=== PATIENT | male | born 1975 | race Caucasian/White ===

== ENCOUNTER → 2021-10-08 14:09 | Outpatient (BNVA) | payer OTHER, SELFPAY | PROVIDERS: PCP Internal Medicine; Visit Provider Surgery Vascular Surgery ==

== ENCOUNTER 2021-10-24 12:51 | Outpatient (REF) | payer OTHER, SELFPAY ==
--- NOTE | ~2021-10-24 | US_ITS ---
EXAMINATION: BILATERAL LOWER EXTREMITY VENOUS ULTRASOUND (Reflux Exam) CLINICAL INDICATION: Lower extremity varicose veins. COMPARISON: None. TECHNIQUE: Color flow triplex imaging and compression Doppler was performed to evaluate both the deep and the superficial systems bilaterally. To evaluate the superficial system, the examination was performed in the upright position. Color-flow Doppler ultrasound and compression ultrasound were utilized. In addition, maneuvers were utilized to demonstrate reflux. FINDINGS: SUPERFICIAL ULTRASOUND WITH DOPPLER OF RIGHT LOWER EXTREMITY GREAT SAPHENOUS VEIN: Saphenofemoral junction: 0.7 cm Max diameter: 0.7 cm Min diameter: 0.3cm Reflux: No evidence of reflux. DUPLICATED MEDIAL GREAT SAPHENOUS VEIN: Max Diameter: None Imaged Reflux: NA DUPLICATED LATERAL GREAT SAPHENOUS VEIN: Diameter: 0.3 cm at the junction Reflux: None SMALL SAPHENOUS VEIN: Proximal Calf: 0.2 cm Distal Calf: 0.2 cm Reflux: No evidence of reflux VEIN OF GIACOMINI: None Imaged PERFORATORS: Location: [place], 0.2 cm Reflux: None VARICOSITIES: Location: Proximal thigh, distal thigh and distal calf measuring between 3 and 4 mm Reflux: There is up to 1.1 seconds of reflux within the distal calf varicosity DEEP VENOUS ULTRASOUND OF THE RIGHT LOWER EXTREMITY: Common Femoral Vein: Compressible, normal respiratory variation and augmented flow. Femoral vein: Compressible, normal color flow and augmentation. Popliteal Vein: Compressible, normal augmentation. Deep Reflux: There is no evidence of reflux in the deep system in either the common femoral vein or the popliteal vein. Andrade's Cyst: There is no evidence of a Andrade's cyst. SUPERFICIAL ULTRASOUND WITH DOPPLER OF LEFT LOWER EXTREMITY GREAT SAPHENOUS VEIN: Saphenofemoral junction: 1.2 cm Max diameter: 1.2 cm Min diameter: 0.2 cm Reflux: There is greater than 0.9 seconds of reflux at the saphenofemoral junction DUPLICATED MEDIAL GREAT SAPHENOUS VEIN: Max Diameter: None Imaged Reflux: NA DUPLICATED LATERAL GREAT SAPHENOUS VEIN: Diameter: 0.3 cm at the junction Reflux: NA SMALL SAPHENOUS VEIN: Proximal Calf: 0.2 cm Distal Calf: 2 cm Reflux: No evidence of reflux. VEIN OF GIACOMINI: None Imaged. PERFORATORS: Location: Proximal calf and distal calf measuring 2 and 3 mm respectively Reflux: None VARICOSITIES: Location: Maximal thigh measuring 4 mm Reflux: None DEEP VENOUS ULTRASOUND OF THE LEFT LOWER EXTREMITY: Common Femoral Vein: Compressible, normal respiratory variation and augmented flow. Femoral vein: Compressible, normal color flow and augmentation. Popliteal Vein: Compressible, normal augmentation. Deep Reflux: There is no evidence of reflux in the deep system in either the common femoral vein or the popliteal vein. Andrade's Cyst: There is no evidence of a Andrade's cyst. US/US venous duplex LE BI IMPRESSION: 1. Left great saphenous venous insufficiency beginning at the saphenofemoral junction. 2. No evidence of right great saphenous venous insufficiency. 3. No evidence of small saphenous venous insufficiency involving either leg. 4. Bilateral lower extremity varicosities. 5. No evidence of deep venous insufficiency or DVT.
== END 2021-10-24 12:52 | disposition home or self-care (01) ==
LOC: HO.US 12:51
PROVIDERS: Visit Provider Surgery Vascular Surgery
DX: I83.11 Varicose veins of right lower extremity with inflammation (principal)
CPT/HCPCS: 93970

== ENCOUNTER → 2021-10-31 15:08 | Outpatient (BNVA) | payer OTHER, SELFPAY | PROVIDERS: Visit Provider Surgery Vascular Surgery ==

== ENCOUNTER 2023-01-14 08:46 | Emergency (ER) | payer OTHER, SELFPAY ==
--- NOTE | ~2023-01-14 | XR_ITS ---
EXAMINATION: XR ANKLE, LEFT CLINICAL INFORMATION: Pain and swelling left ankle COMPARISON: None available. TECHNIQUE: AP, lateral, and mortise views of the left ankle. FINDINGS: There is no evidence of acute fracture or dislocation of the left ankle. Left ankle mortise appears intact. There is some spurring about the dorsum of the talus related to old injuries. There is some edema seen involving the lower leg and ankle. There is a small well-circumscribed calcific density about the distal tip of the medial malleolus which may represent secondary ossification center or sequela of previous injury. No destructive bony lesions identified. There are calcaneal spurs at sites of insertion of the Achilles and plantar tendons. XR/XR ankle LT min 3V IMPRESSION: No significant acute bony abnormality of the left ankle.
[2023-01-14 09:44] VITALS: BP 164/83; PULSE 90; RESP 18; TEMP 36.8; O2SAT 96; BMI 40.6
--- NOTE | 2023-01-14 11:30 | ED.GENADULT ---
HPI - General Adult General Chief complaint: Extremity Problem Stated complaint: L leg pain Time Seen by Provider: 01/14/23 11:30 Source: patient Mode of arrival: ambulatory Limitations: no limitations History of Present Illness HPI narrative: Patient is a 47 year old assigned male at with no reported medical history presenting to the emergency department today with left ankle pain. Patient states that he has been having intermittent pain of the left ankle for the last week. Patient states he believes it's because he is on his feet all day at work. Patient denies any dizziness, lightheadedness, abdominal pain, nausea, vomiting, fever, chills, blurry vision, double vision, loss of vision, chest pain, difficulty breathing, shortness of breath, back pain, night sweats, pain with urination, increased urinary frequency, increased urinary urgency, blood in his urine or stool, syncope or a near syncopal episode, recent trauma or falls, bowel incontinence, bladder incontinence, bowel retention, bladder retention, or any other complaints at this time. Onset (ago): week(s) (1) Location: left and lower extremity Radiation: non-radiation Severity: mild Severity scale (1-10): 3 Quality: aching and dull Pain Consistency: constant Relieving factors: none Exacerbating factors: none Associated symptoms: denies other symptoms Treatments prior to arrival: none Related Data Home Medications Medication Instructions Recorded Confirmed lisinopril 10 mg tablet 10 mg PO DAILY 10/08/21 Allergies Allergy/AdvReac Type Severity Reaction Status Date / Time No Known Allergies Allergy Verified 10/31/21 15:12 Review of Systems Constitutional: Constitutional: Reports no additional constitutional complaints, Denies chills, Denies fever(s) and Denies night sweats Eyes: Eyes: Reports no additional eye complaints, Denies blurry vision, Denies change in vision, Denies diplopia, Denies eye discharge, Denies loss of vision and Denies eye pain ENT: Denies dizziness Cardiovascular: Cardiovascular: Reports no additional cardiovascular complaints, Denies chest pain, Denies lightheadedness, Denies Loss of Consciousness and Denies dyspnea Respiratory: Respiratory: Reports no additional respiratory complaints and Denies dyspnea Gastrointestinal: Gastrointestinal: Reports no additional gastrointestinal complaints, Denies abdominal pain, Denies melena, Denies hematochezia, Denies change in bowel habits and Denies change in stool character Genitourinary: Genitourinary: Reports no additional male genitourinary complaints, Denies hematuria, Denies oliguria, Denies difficulty urinating, Denies dysuria, Denies urinary frequency, Denies urinary hesitancy, Denies urinary incontinence and Denies urinary urgency Musculoskeletal: Musculoskeletal: Reports no additional musculoskeletal complaints, Denies numbness and Denies tingling Comments: left ankle pain Neurologic: Denies dizziness, Denies loss of vision, Denies numbness and Denies tingling Psychiatric: Psychiatric: Reports no additional psychiatric complaints Endocrine: Endocrine: Reports no additional endocrine complaints Hematologic/Lymphatic: Hematologic/Lymphatic: Reports no additional hematologic/lymphatic complaints Allergic/Immunologic: Allergic/Immunologic: Reports no additional allergic/immunologic complaints [facility] Past Medical History Attestation statement: The following information was validated with the patient. Source: old records reviewed and nursing notes reviewed Social History Social History Advance Directives: No Advance Directives Information Provided: Yes Physical Exam ED Vital Signs: Vital Signs - 24 hr 01/14/23 09:44 Temperature 98.2 F Pulse Rate 90 Respiratory Rate 18 Blood Pressure 164/83 H Pulse Oximetry 96 Oxygen Delivery Method Room Air BMI result Body Mass Index 40.6 Const General: cooperative, no acute distress, alert and awake Nutritional Appearance: well nourished Orientation/consciousness: patient oriented x3 Limitations: no limitations HENMT Head: Yes normal to inspection and Yes atraumatic Ears: hearing grossly normal bilaterally and external ears normal General nose exam: Normal external nose present, no nasal discharge noted and no epistaxis Face and sinus: Yes normal facial exam, No abrasion and No laceration Mouth: Normal oral and palatal mucosa present, no drooling and no muffled voice Eyes General: appearance normal, both eyes and all related structures Periorbital: periorbital findings normal Eyelids: Yes eyelids normal Conjunctivae: conjunctivae normal Pupils: Equal, round and reactive pupils present EOM: EOMs intact bilaterally Neck Neck: Yes normal visual inspection, Yes full ROM and Yes no lymphadenopathy Chest Chest palpation & inspection: normal inspection of the chest Resp Effort & Inspection: normal respiratory effort and able to speak in complete sentences Auscultation: clear to auscultation bilaterally Cardio Rate: regular rate Rhythm: regular rhythm GI Inspection: Yes normal to inspection Palpation (GI): Soft to palpation, not firm, nontender, no guarding and not rigid Neuro General: patient oriented x3 and moves all extremities Cranial nerves: Yes Equal, round and reactive pupils present Cognition (Neuro): normal cognition Motor exam (neuro): 5/5 motor strength present throughout Sensory Exam: Normal double simultaneous stimulation for sensation Coordination: [id number] test normal Extrem General: Yes normal to inspection, Yes full ROM and Yes capillary refill normal Psych Appearance: grossly normal Mental Status: mental status grossly normal Affect: normal affect Attitude: cooperative Thought process: Normal thought process present Thought content: Normal thought content present Insight: Good insight present (Psych) Medications Administered Discontinued Medications Generic Name Dose Route Start Last Admin Trade Name Freq PRN Reason Stop Dose Admin Ketorolac Tromethamine 15 mg 01/14/23 11:32 01/14/23 11:43 Ketorolac Tromethamine 15 Mg/Ml Vial IM 01/14/23 11:33 15 mg ONCE ONE Administration Procedures Orthopedic Splinting/Casting Injury #1: Side: left Lower Extremity Injury Location: ankle Lower Extremity Immobilizer: Saad wrap Other Orthopedic Equipment: crutches Medical Decision Making Medical Decision Making MDM Narrative: Patient is a 47 year old assigned male at with no reported medical history presenting to the emergency department today with left ankle pain. Patient's physical exam was unremarkable. Patient's left ankle x-ray showed no acute process. I explained my physical exam findings as well as all test results to the patient. I answered all questions asked by the patient. Patient's left ankle was wrapped in an saad wrap and the patient was given crutches and crutch instructions. I stressed the importance of the patient taking his medication as prescribed. I stressed the importance of the patient following up with his primary care provider and if pain persists, an orthopedic provider. I stressed the importance of the patient returning to the emergency department immediately if his symptoms were to worsen or if he were to develop any dizziness, shortness of breath, difficulty breathing, chest pain, blurry vision, loss of vision, nausea, vomiting, abdominal pain, fever, chills, back pain, or any other complaints. Patient verbalized agreement and understanding with this treatment plan and discharge. Differential Diagnosis Differential Diagnoses: The differential diagnosis associated with the presentation includes left ankle pain, left ankle sprain Independent Interpretation I performed an independent interpretation of an: Plain X-Ray Interpretation: My interpretation is in agreement with the radiologist's impression of this imaging study. EXAMINATION: XR ANKLE, LEFT CLINICAL INFORMATION: Pain and swelling left ankle? COMPARISON: None available.? TECHNIQUE: AP, lateral, and mortise views of the left ankle. FINDINGS: There is no evidence of acute fracture or dislocation of the left ankle. Left ankle mortise appears intact. There is some spurring about the dorsum of the talus related to old injuries. There is some edema seen involving the lower leg and ankle. There is a small well-circumscribed calcific density about the distal tip of the medial malleolus which may represent secondary ossification center or sequela of previous injury. No destructive bony lesions identified. There are calcaneal spurs at sites of insertion of the Achilles and plantar tendons. XR/XR ankle LT min 3V IMPRESSION: No significant acute bony abnormality of the left ankle. Dictated By: Jude Huff MD Signed By: Electronically signed by Jude Huff MD 01/14/23 5841 Discharge Plan Discharge Clinical Impression: Arthritis, Left ankle sprain Patient Disposition: Home, Self-Care Instructions: Crutch Instructions (ED), How to Use an Elastic Bandage (ED) Additional Instructions: Follow up with your primary care provider and if pain persits >2 weeks, an orthopedic provider. Return to the emergency department immediately if your symptoms worsen or if you develop any dizziness, shortness of breath, difficulty breathing, chest pain, blurry vision, loss of vision, nausea, vomiting, abdominal pain, fever, chills, back pain, or any other complaints. Prescriptions: No Action lisinopril 10 mg tablet 10 mg PO DAILY Referrals: [facility] Family Medicine [Provider Group] (Call to establish and follow up with a primary care provider. If you already have a primary care provider, please follow up with them.) [facility] Primary Care, Abbie [Provider Group] (Call to establish and follow up with a primary care provider. If you already have a primary care provider, please follow up with them.) [facility] Primary Care,Rachel [Provider Group] (Call to establish and follow up with a primary care provider. If you already have a primary care provider, please follow up with them.) [facility] [Provider Group] (Call to establish and follow up with an orthopedic provider if your pain persists >2 weeks. ) Stand Alone Forms: Work/School Release Interventions: ED Discharge Assessment Last Done: 01/14/23 11:48 Discharge Date/Time: 01/14/23 11:55 Print Language: Belarusian
[2023-01-14] MEDS: Ketorolac Tromethamine 15 MG/ML VIAL IM (11:43)
== END 2023-01-14 11:55 | disposition home or self-care (01) ==
PROVIDERS: Emergency Provider Emergency Medicine
DX: M19.072 Primary osteoarthritis, left ankle and foot (principal); S93.402A Sprain of unspecified ligament of left ankle, initial encounter; X50.9XXA Other and unspecified overexertion or strenuous movements or postures, initial encounter; Y93.89 Activity, other specified; Y92.9 Unspecified place or not applicable; Y99.9 Unspecified external cause status
CPT/HCPCS: 73610; 96372; 99283; 99284; J1885

== ENCOUNTER 2023-09-22 18:31 | Emergency (ER) | payer OTHER, SELFPAY ==
--- NOTE | ~2023-09-22 | XR_ITS ---
EXAMINATION: CERVICAL SPINE 3 VIEWS CLINICAL INFORMATION: Neck pain. COMPARISON: None. TECHNIQUE: Frontal, lateral and odontoid views are obtained. FINDINGS: Vertebral body heights and alignment are normal. At C3-C4 and C5-C6, there is mild disc space narrowing. The remaining disc spaces are relatively well-maintained. No acute fracture or spondylolisthesis is seen. There is multi-level cervical spondylosis. The posterior elements are intact. The dens is intact. The C7-T1 interface is well-maintained. There is no prevertebral soft tissue swelling. XR/XR cervical spine 3V IMPRESSION: 1. There is mild degenerative disease at C3-C4 and C5-C6. 2. There is multi-level spondylosis and facet arthropathy.
[2023-09-22 19:18] VITALS: BP 177/98; PULSE 91; RESP 18; TEMP 36.9; O2SAT 96; BMI 40.5
--- NOTE | 2023-09-22 19:19 | ECG_ITS ---
Test Reason : NUMB/PAIN BILAT ARMS Blood Pressure : / mmHG Vent. Rate : 092 BPM Atrial Rate : 092 BPM P-R Int : 172 ms QRS Dur : 082 ms QT Int : 356 ms P-R-T Axes : 019 062 -01 degrees QTc Int : 440 ms Normal sinus rhythm Nonspecific T wave abnormality Inferior leads Abnormal QRS-T angle, consider primary T wave abnormality Abnormal ECG No previous ECGs available Referred By: Irasema Donald Electronically Signed By:DENISE OSBORNE MD
--- NOTE | 2023-09-22 19:19 | ED.GENADULT ---
HPI - General Adult General Chief complaint: Neck Pain/Injury Stated complaint: pain in back of head Time Seen by Provider: 09/22/23 19:18 Related Data Home Medications Medication Instructions Recorded Confirmed lisinopril 10 mg tablet 10 mg PO DAILY 10/08/21 Previous Rx's Medication Instructions Recorded cyclobenzaprine 10 mg tablet 10 mg PO BEDTIME PRN muscle spasm 09/23/23 #7 tabs ketorolac 10 mg tablet 10 mg PO .b.i.d. PRN pain 5 days 09/23/23 #10 tabs Allergies Allergy/AdvReac Type Severity Reaction Status Date / Time No Known Allergies Allergy Verified 09/22/23 19:23 [facility] Social History Social History Advance Directives: No Advance Directives Information Provided: No Physical Exam ED Vital Signs: Vital Signs - 24 hr 09/22/23 19:18 09/23/23 00:47 Temperature 98.4 F 99.0 F Pulse Rate 91 82 Respiratory Rate 18 20 Blood Pressure 177/98 H 133/86 Pulse Oximetry 96 96 Oxygen Delivery Method Room Air Room Air BMI result Body Mass Index 40.5 Course Course Course Narrative: This is an RME: Additional HPI, ROS, PE not included below will be deferred to primary provider. 48-year-old male presents with neck pain that radiates to bilateral upper extremities, going on for about a month. Denies injuries. Does not have a primary care denies upper extremity clumsiness. Plan at this x-ray of cervical spine Medications Administered Discontinued Medications Generic Name Dose Route Start Last Admin Trade Name Freq PRN Reason Stop Dose Admin Ketorolac Tromethamine 60 mg 09/23/23 01:28 09/23/23 01:44 Ketorolac Tromethamine 60 Mg/2 Ml Vial IM 09/23/23 01:29 60 mg ONCE ONE Administration Medical Decision Making Medical Decision Making [facility] Narrative: - my interpretation of x-ray of the neck: No obvious fracture or dislocation/misalignment Radiology Impression Discussion of test interpretation with radiology: I have reviewed the radiologist's reading. Radiologist Impression: Vertebral body heights and alignment are normal. At C3-C4 and C5-C6, there is mild disc space narrowing. The remaining disc spaces are relatively well-maintained. No acute fracture or spondylolisthesis is seen. There is multi-level cervical spondylosis. The posterior elements are intact. The dens is intact. The C7-T1 interface is well-maintained. There is no prevertebral soft tissue swelling. XR/XR cervical spine 3V IMPRESSION: 1. There is mild degenerative disease at C3-C4 and C5-C6. 2. There is multi-level spondylosis and facet arthropathy. Discharge Plan Discharge Clinical Impression: Cervical radiculopathy Patient Disposition: Home, Self-Care Instructions: Cervical Radiculopathy (ED) Additional Instructions: Please follow-up with your primary care physician tomorrow. If you have any worsening or new symptoms, please return to the emergency room or call 911 Prescriptions: New ketorolac 10 mg tablet 10 mg PO .b.i.d. PRN (Reason: pain) 5 Days Qty: 10 0RF cyclobenzaprine 10 mg tablet 10 mg PO BEDTIME PRN (Reason: muscle spasm) Qty: 7 0RF No Action lisinopril 10 mg tablet 10 mg PO DAILY Stand Alone Forms: Work/School Release
[2023-09-23 00:47] VITALS: BP 133/86; PULSE 82; RESP 20; TEMP 37.2; O2SAT 96
--- NOTE | 2023-09-23 01:28 | ED.GENADULT ---
HPI - General Adult General Chief complaint: Neck Pain/Injury Stated complaint: pain in back of head Time Seen by Provider: 09/22/23 19:18 Source: patient Mode of arrival: ambulatory Limitations: no limitations History of Present Illness HPI narrative: patient comes to the emergency room complaining of upper neck pain radiating towards the shoulders and upper back and occasional numbness and tingling of the fingertips of the fingers. Patient states that his symptoms started approximately 3 weeks ago. Patient denies any heavy lifting or any injury. Related Data Home Medications Medication Instructions Recorded Confirmed lisinopril 10 mg tablet 10 mg PO DAILY 10/08/21 Previous Rx's Medication Instructions Recorded cyclobenzaprine 10 mg tablet 10 mg PO BEDTIME PRN muscle spasm 09/23/23 #7 tabs ketorolac 10 mg tablet 10 mg PO .b.i.d. PRN pain 5 days 09/23/23 #10 tabs Allergies Allergy/AdvReac Type Severity Reaction Status Date / Time No Known Allergies Allergy Verified 09/22/23 19:23 Review of Systems Review of Systems: Constitutional : No Weight loss, No Fever, No Chills, No Night Sweats, No Fatigue, No Malaise ENT/Mouth : No Hearing loss, No Ear Pain, No Nasal Congestion, No Sinus Pain, No Hoarseness, No sore throat, No Rhinorrhea, No Swallowing Difficulty Eyes: No Eye Pain, No Swelling, No Redness, No Foreign Body, No Discharge, No Vision Changes Cardiovascular : No Chest Pain, No SOB, No Dyspnea on Exertion, No Orthopnea, No Edema, No Palpitations Respiratory : No Cough, No Sputum, No Wheezing, No Smoke Exposure, No Dyspnea Gastrointestinal : No Nausea, No Vomiting, No Diarrhea, No Constipation, No abdominal Pain, No Hematochezia, No Melena Genitourinary : no irregular bleeding, No Dysuria, No Urinary Frequency, No Hematuria, No Urinary Incontinence, No Urgency, No Flank Pain, No Urinary Flow Changes, No Hesitancy Musculoskeletal : Complaining of bilateral neck pain radiating towards the upper back bilaterally, intermittent tingling of the fingertips of both hands. No joint pain, No Myalgias, No Joint Swelling Skin : No Skin Lesions, No rash Neuro : No Weakness, No Numbness, No Paresthesias, No Loss of Consciousness, No Dizziness, No Headache Psych : No Anxiety/Panic, No Depression, No SI/HI/AH/VH, No Social Issues, Heme/Lymph: No Bruising, No Bleeding,No Lymphadenopathy Endocrine : No Polyuria, No Polydipsia, No Temperature Intolerance [facility] Social History Social History Advance Directives: No Advance Directives Information Provided: No Physical Exam ED Vital Signs: Vital Signs - 24 hr 09/22/23 19:18 09/23/23 00:47 Temperature 98.4 F 99.0 F Pulse Rate 91 82 Respiratory Rate 18 20 Blood Pressure 177/98 H 133/86 Pulse Oximetry 96 96 Oxygen Delivery Method Room Air Room Air BMI result Body Mass Index 40.5 Const Other: Appearance: Alert. Oriented X3. No acute distress. Eyes: Pupils equal, round and reactive to light. ENT: Pharynx normal. Neck: Normal inspection. Neck supple. No cervical spine tenderness, no palpable step-off, pain with head rotation especially to the left. Pain to palpation over the right side of the neck and supraclavicular muscles bilaterally CVS: Normal heart rate and rhythm. Pulses normal. Normal S1 and S2 Respiratory: No respiratory distress. Breath sounds normal. No Wheezing. No rales Abdomen: Soft and nontender. No rigidity. No distention. Skin: Skin warm and dry. Normal skin color. Normal skin turgor. Extremities: No lower extremity edema. No Lacerations. No Rash Neuro: Oriented X 3. No motor deficit. No sensory deficit. Moving all extremities. No slurred speech. CN 2 through 12 grossly intact, strength 5/5 bilaterally in upper extremities Psych: calm, cooperative, normal affect Medical Decision Making Medical Decision Making MDM Narrative: - discussed with the patient that he likely has musculoskeletal muscle pain affecting the trapezoid muscles. Also, discussed with the patient that he may have cervical radiculopathy causing the numbness / tingling of the fingertips. Patient will follow-up his primary care physician, discussed that he may need physical therapy or even an MRI. At this time, patient was given an IM dose of ketorolac. Differential Diagnosis Differential Diagnoses: The differential diagnosis associated with the presentation includes ( As above) Discharge Plan Discharge Clinical Impression: Cervical radiculopathy Patient Disposition: Home, Self-Care Instructions: Cervical Radiculopathy (ED) Additional Instructions: Please follow-up with your primary care physician tomorrow. If you have any worsening or new symptoms, please return to the emergency room or call 911 Prescriptions: New ketorolac 10 mg tablet 10 mg PO .b.i.d. PRN (Reason: pain) 5 Days Qty: 10 0RF cyclobenzaprine 10 mg tablet 10 mg PO BEDTIME PRN (Reason: muscle spasm) Qty: 7 0RF No Action lisinopril 10 mg tablet 10 mg PO DAILY Stand Alone Forms: Work/School Release
[2023-09-23] MEDS: Ketorolac Tromethamine 60 MG/2 ML VIAL IM (01:44)
== END 2023-09-23 01:49 | disposition home or self-care (01) ==
PROVIDERS: Emergency Provider Emergency Medicine
DX: M54.12 Radiculopathy, cervical region (principal); M79.602 Pain in left arm; M79.601 Pain in right arm; R94.31 Abnormal electrocardiogram [ECG] [EKG]; R51.9 Headache, unspecified; M54.2 Cervicalgia
CPT/HCPCS: 72040; 93005; 96372; 99284; J1885

== ENCOUNTER 2025-05-03 08:00 | Outpatient (REF) | payer OTHER, SELFPAY ==
--- OUTSIDE RECORDS SUMMARY | 2025-05-03 08:02 | XMS_ITS | Clinical Summary ---
Author Organization [employer] Address [address] [facility] [address] [place] [address] Care Team Providers Care Maintenance Shop Technician Name Role Phone Deborah Bey MD Primary Care Pro vider Allergies No known active allergies Medications cyclobenzaprine (Flexeril) 10 MG tablet Take 5 mg by mouth at bedtime. Active aspirin 81 MG EC tablet Take 1 tablet (81 mg) by mouth Once per day. 90 tablet 03/16/2025 Active lisinopril 10 MG tablet Take 1 tablet (10 mg) by mouth Once per day. 90 tablet 03/16/2025 Active Active Problems Problem Noted Date Diagnosed Date Health care maintenance 03/09/2025 Morbid obesity 03/09/2025 Closed stable burst fracture of second lumbar vertebra with routine healing 03/09/2025 Liver lesion 03/09/2025 Closed fracture of coccyx, sequela 03/08/2025 Hypertensive disorder 07/04/2024 Encounters Date Type Department Care Team Description 03/24/2025 Telephone [facility] [address] [place] [phone] Deborah Bey MD Referral 03/16/2025 Orders Only [facility] [address] [place], [place] [phone] Deborah Bey MD 03/16/2025 Telephone [facility] [address] [place] [phone] Deborah Bey MD Med Refill 03/15/2025 Telephone [facility] [address] [place] [address] Deborah Bey MD Workers Comp (I received a call from Millie Shay, regarding a Patient Status Report from [employer], for a Workers Comp claim. I informed her that the form has not been completed, because the patient needs to sign a release of information. She stated that Workers Comp is HIPAA exempt, therefore, information could be sent without a release of information. After verifying with the HIPAA Advanced Practice Rn, the report was sent to the PCP for signature, and it will be faxed to the number that is listed.) 03/15/2025 Telephone [facility] [address] [place] [phone] Deborah Bey MD 03/14/[address] [phone] Deborah Bey MD Workers Comp (I called the patient regarding a Patient Status Report, from [employer] for a Workers Comp claim. He needs to sign a release of information, before the report is faxed back to [employer]. I reached a voicemail, and left a message asking him to return my call at ext [phone]./) 03/09/2025 Telephone [facility] [employer] [address] [place] [address] [phone] Devora Jiménez [place] Worker Comp Claim (I called the patient regarding a Patient Status Report, from [employer] for a Workers Comp claim. He needs to sign a release of information, before the report is faxed to [employer]. I reached a voicemail, and left a message asking him to return my call at ext [phone].) 03/08/2025 9:15 AM EDT Office Visit [address] [phone] Deborah Bey MD Closed fracture of coccyx, sequela (Primary Dx); Dietary counseling; Exercise counseling; Annual physical exam; Colon cancer screening; Hypertension, unspecified type; Morbid obesity (CMS/HCC); Loud snoring; Encounter for immunization; Health care maintenance; Closed stable burst fracture of second lumbar vertebra with routine healing; Liver lesion 03/08/2025 Travel 03/07/[address] [place] [phone] Deborah Bey MD CHART PREP 03/01/2025 Patient Outreach [facility] [address] [place] [address] Deborah Bey MD Pre-visit Planning (//(PVP screening completed, no concerns)) 02/27/2025 Telephone [facility] [address] [place] [address] Sherif Allen MD new pt from Last 3 Months Immunizations Immunization Administration Dates Next Due Influenza injectable quadrivalent preservative f ree 09/07/2020 Influenza, Unspecified 07/20/2013 SARS-CoV-2, Unspecified 03/09/2021,02/09/2021 Tdap 03/08/2025 Family History Medical History Relation Name Comments maternal cousin: unspecified cancer Other Relation Name Status Comments Other Social History Tobacco Use Types Packs/Day Years Used Date Smoking Tobacco: Former Cigarettes Passive Smoke Exposure: Never Smokeless Tobacco: Never Comments:Started 14 y of age until 34 y of age-smoked for 20 years -used to smoke 3-4 cig a day ,stopped 15 y ago ,PQT a year 3 -no need for lung ca screening Alcohol Use Standard Drinks/Week Comments Not Currently 0 (1 standard drink = 0.6 oz pur e alcohol) Depression Answer Date Recorded Patient Health Questionnaire-9 Score 0 03/08/2025 Patient Health Questionnaire-9 Score 0 03/08/2025 Last PHQ-9: Questionnaire Data Not on file 0 03/08/2025 Housing Stability Answer Date Recorded What is your housing situation today? I have jesus randall 03/01/[address] you li ve. Do you have problems with any of the following? None of the above 03/01/2025 Food Insecurity Answer Date Recorded Within the past 12 months, y ou worried that your food would run out before you got money to buy more: Never True 03/01/2025 Within the past 12 months,th e food you bought just didn't last and you didn't have enough money to get more: Never True 04/2025 Transportation Answer Date Recorded In the past 12 months, has l ack of transportation kept you from medical appts, meetings, work or from getting things needed for daily living? No 03/01/2025 Utilities Answer Date Recorded In the past 12 months, has t he electric, gas, oil or water company threatened to shut off services in your home? No 03/01/2025 Depression Answer Date Recorded Patient Health Questionnaire-2 Score 0 03/08/2025 Internet Access Answer Date Recorded Internet Access Q1 Yes 03/01/2025 Internet Access Q2 Not on file 03/01/2025 Sex and Gender Information Value Date Recorded Sex Assigned at Male 08/25/2022 10:35 AM EDT Legal Sex Male 10:35 AM EDT Gender Identity Male 08/25/2022 10:35 AM EDT Sexual Orientation Choose not to disclose 2021 10:35 AM EDT Last Filed Vital Signs Vital Sign Reading Time Taken Comments Blood Pressure 136/86 03/08/2025 9:20 AM EDT Pulse 93 03/08/2025 9:20 AM EDT Temperature 36.6 C (97.8 F) 03/08/2025 9:20 AM EDT Respiratory Rate 18 03/08/2025 9:20 AM EDT Oxygen Saturation 96% 03/08/2025 9:20 AM EDT Inhaled Oxygen Concentration - - Weight 151 kg (333 lb 6.4 oz) 03/08/2025 9:20 AM EDT Height 182.9 cm (6') 03/08/2025 9:20 AM EDT Body Mass Index 45.22 03/08/2025 9:20 AM EDT Plan of Treatment Upcoming Encounters Date Type Department Care Team (Late st Contact Info) Description 05/04/2025 10:30 AM EDT Office Visit [facility] [address] [place] [phone] Deborah Bey MD [address] [place] [phone] Health Maintenance Due Date Last Done Comments CT Colonography 1975 Colonoscopy 1975 Colorectal Cancer Screening 1975 FIT DNA/Cologuard 1975 FIT 1975 FOBT 1975 Sigmoidoscopy 1975 Family Planning (PISQ) 1990 Hepatitis C Screening 1993 Hepatitis A Vaccines (1 of 2 - Risk 2-dose series) 1994 Hepatitis B Vaccines (1 of 3 - 19+ 3-dose series) 1994 COVID-19 Vaccine (3 - 2023-2 5 season) 2024 03/09/2021, 02/09/2021 Zoster Vaccines (1 of 2) 2025 Influenza Vaccine (#1) 2025 , 07/20/2013, 07/20/2013 Lipid Panel 09/21/2025 09/21/2020 SDOH Screening 03/01/2026 03/01/2025 Alcohol/Substance Use Screening 03/08/2026 03/08/2025 Depression Screening 03/08/2026 03/08/2025, 03/08/2025 Disability Screening 03/08/2026 03/08/2025 Tobacco Screening 03/08/2026 03/08/2025 DTaP/Tdap/Td Vaccines (2 - T d or Tdap) 03/08/2035 03/08/2025 RSV Patients and Patients Aged 60 years or older (1 - 1-dose 75+ series) 2050 HIV Screening Completed 09/21/2020 HIB Vaccines Aged Out No longer eligi ble based on patient's age to complete this topic HPV Vaccines Aged Out No longer eligi ble based on patient's age to complete this topic IPV Vaccines Aged Out No longer eligi ble based on patient's age to complete this topic Meningococcal B Vaccine Aged Out No l onger eligible based on patient's age to complete this topic Meningococcal Vaccine Aged Out No yoan tyrone eligible based on patient's age to complete this topic Pneumococcal Vaccine: Pediatrics (0 to 5 Years) and At-Risk Patients (6 to 49) Years Aged Out No longer eligible b ased on patient's age to complete this topic RSV under 20 months Aged Out No longe r eligible based on patient's age to complete this topic Rotavirus Vaccines Aged Out No longer eligible based on patient's age to complete this topic Procedures Procedure Name Priority Date/Time Associated Diagnosis Comments HIV 1/2 ANTIGEN/ANTIBODY, FOURTH GENERATION W/RFL Routine 09/21/2020 9:28 AM EST LIPID PANEL, STANDARD Routine 09/21/2020 9:28 AM EST from Last 3 Months or Most Recently Relevant to Health Maintenance Results * HIV 1/2 ANTIGEN/ANTIBODY,FOURTH GENERATION W/RFL (09/21/2020 9:28 AM EST) HIV-1/2 ANTIGEN AND ANTIBODIES, 4TH GENERATION W/ REFLEX NON-REACT [facility] NON-REACT [facility] Comment: HIV-1 antigen and HIV-1/HIV-2 antibodies were not detected. There is no laboratory evidence of HIV infection. PLEASE NOTE: This information has been disclosed to you from records whose confidentiality may be protected by state law. If your state requires such protection, then the state law prohibits you from making any further disclosure of the information without the specific written consent of the person to whom it pertains, or as otherwise permitted by law. A general authorization for the release of medical or other information is NOT sufficient for this purpose. For additional information please refer to http://education.Teamie/faq/VLY028 (This link is being provided for informational/ educational purposes only.) The performance of this assay has not been clinically validated in patients less than 2 years old. 09/21/2020 9:28 AM EST us Christina Colvin MD LAB BLOOD ORDERABLES Final Result [facility] [address] * LIPID PANEL, STANDARD (09/21/2020 9:28 AM EST) Triglycerides 45 <150 mg/dL [facility] Chol/HDLC Ratio 2.7 <5.0 (calc) [facility] Chol/HDLC Ratio 2.7 <5.0 (calc) [facility] Cholesterol, Total 141 <200 mg/dL [facility] HDL Cholesterol 53 > OR = 40 mg/dL [facility] Triglycerides 45 <150 mg/dL [facility] LDL Cholesterol 75 mg/dL (calc) [facility] Comment: Reference range: <100 Desirable range <100 mg/dL for primary prevention; <70 mg/dL for patients with CHD or diabetic patients with > or = 2 CHD risk factors. LDL-C is now calculated using the Shay-Ceja calculation, which is a validated novel method providing better accuracy than the Friedewald equation in the estimation of LDL-C. Shay SS et al. ASUNCION. 2013;310(19): 0030-3720 (http://education.[employer].Etonkids/faq/ACA453) Non-HDL Cholesterol 88 <130 mg/dL (calc) [facility] Comment: For patients with diabetes plus 1 major ASCVD risk factor, treating to a non-HDL-C goal of <100 mg/dL (LDL-C of <70 mg/dL) is considered a therapeutic option. Non-HDL Cholesterol 88 <130 mg/dL (calc) [facility] Comment: For patients with diabetes plus 1 major ASCVD risk factor, treating to a non-HDL-C goal of <100 mg/dL (LDL-C of <70 mg/dL) is considered a therapeutic option. Cholesterol, Total 141 <200 mg/dL [facility] HDL Cholesterol 53 > OR = 40 mg/dL [facility] LDL Cholesterol 75 mg/dL (calc) [facility] Comment: Reference range: <100 Desirable range <100 mg/dL for primary prevention; <70 mg/dL for patients with CHD or diabetic patients with > or = 2 CHD risk factors. LDL-C is now calculated using the Shay-Ceja calculation, which is a validated novel method providing better accuracy than the Friedewald equation in the estimation of LDL-C. Shay SS et al. ASUNCION. 2013;310(19): 6482-9295 (http://education.[employer].Etonkids/faq/YNF666) 09/21/2020 9:28 AM EST us Christina Clovin MD LAB BLOOD ORDERABLES Final Result [facility] [address] from Last 3 Months or Most Recently Relevant to Health Maintenance Insurance [facility] NAVIGATE Care Teams Maintenance Shop Technician Relationship Specialty Start Date End Date Deborah Bey MD [address] [place] [phone] PCP - General Internal Medicine 03/09/25
--- OUTSIDE RECORDS SUMMARY | 2025-05-03 08:02 | XMS_ITS | Clinical Summary ---
Author Organization 299 [facility] Address [address] [place] [address] Phone Care Team Providers Care Clerical Coordinator Name Role Phone IrenejhkahlilrenettaSelma Ye DO Primary Care Pro vider Encounters Date Type Department Care Team Description 04/11/2025 10:54 AM EDT - 04/11/2025 11:59 PM EDT Hospital Encounter [facility] Xray [address] [place] [id number] Pain Discharge Disposition: Home or Self Care 03/04/2025 Lab Requisition [facility] Lab [address] [place] [phone] Marito Morales MD Essential (primary) hypertension 03/04/2025 Lab Requisition [facility] Lab [address] [place] [phone] Marito Morales MD Essential (primary) hypertension 02/24/2025 Lab Requisition [facility] Lab [address] [place] [phone] Marito Morales MD Essential (primary) hypertension 02/20/2025 Lab Requisition [facility] Lab [address] [place] [phone] Marito Morales MD Essential (primary) hypertension from Last 3 Months Surgical History Surgery Date Site/Laterality Comments OTHER SURGICAL HISTORY PROCEDURE: ND ARTHRS WRST EXC&/RPR TRIANG FIBROCART&/JOINT; COMMENT: torn ligament Family History Medical History Relation Name Comments Blindness Neg Hx Cataracts Neg Hx Glaucoma Neg Hx Macular degeneration Neg Hx Strabismus Neg Hx Relation Name Status Comments Father Alive Mother Alive Social History Tobacco Use Types Packs/Day Years Used Date Smoking Tobacco: Every Day Cigarettes Alcohol Use Standard Drinks/Week Comments Not Asked 0 (1 standard drink = 0.6 oz pur e alcohol) Sex and Gender Information Value Date Recorded Sex Assigned at Not on file Legal Sex Male 1:35 PM EST Gender Identity Not on file Sexual Orientation Not on file Obstetrics History Plan of Treatment Health Maintenance Due Date Last Done Comments Hepatitis A Vaccines (1 of 2 - Risk 2-dose series) 1994 Hepatitis B Vaccines (1 of 3 - 19+ 3-dose series) 1994 Pneumococcal Vaccine: Pediatrics (0 to 5 Years) and At-Risk Patients (6 to 49 Years) (1 of 2 - PCV) 1994 COVID-19 Vaccine (2023-2 5 season) 2024 03/09/2021, 02/09/2021 Colorectal Cancer Screening: Colonoscopy 02/20/2025 Hepatitis C Screening 02/20/2025 Social Influencers of Health Screening 02/20/2025 Influenza Vaccine (#1) 2025 , 07/20/2013 Cholesterol Screening (Lipid Panel) 09/21/2025 09/21/2020 Hypertension/CHF/CAD Annual BMP Blood Test 02/27/2026 02/27/2025, 02/20/2025 Depression Screening 03/08/2026 03/08/2025 DTaP,Tdap,and Td Vaccines (2 - Td or Tdap) 03/08/2035 03/08/2025 HIV Screening Completed 09/21/2020 HIB Vaccines Aged Out No longer eligi ble based on patient's age to complete this topic HPV Vaccines Aged Out No longer eligi ble based on patient's age to complete this topic IPV Vaccines Aged Out No longer eligi ble based on patient's age to complete this topic MMR Vaccines Aged Out No longer eligi ble based on patient's age to complete this topic Meningococcal ACWY Vaccine Aged Out N o longer eligible based on patient's age to complete this topic Meningococcal B Vaccine Aged Out No l onger eligible based on patient's age to complete this topic RSV Immunization Patients Under 20 months Aged Out No longer eligible b ased on patient's age to complete this topic Varicella Vaccines Aged Out No longer eligible based on patient's age to complete this topic Procedures Procedure Name Priority Date/Time Associated Diagnosis Comments XR LUMBAR SPINE 2-3 VIEWS Routine 04/11/2025 11:10 AM EDT Pain BASIC METABOLIC PANEL Routine 02/27/2025 7:08 AM EDT Essential (primary) hypertension COMPLETE BLOOD COUNT Routine 02/27/2025 7:08 AM EDT Essential (primary) hypertension COMPREHENSIVE METABOLIC PANEL Routine 02/20/2025 6:39 AM EDT Essential (primary) hypertension COMPLETE BLOOD COUNT Routine 02/20/2025 6:39 AM EDT Essential (primary) hypertension from Last 3 Months Results * XR Lumbar Spine 2-3 Views (04/11/2025 11:10 AM EDT) Anatomical Region Laterality Modality Spine, L-spine Radiographic Agustina ging 04/12/2025 7:54 AM EDT Impressions 04/12/2025 7:56 AM EDT Mild to moderate compression fracture of the superior aspect of the L2 vertebral body, which is apparently known. There is also a mild compression fracture of L4, of uncertain chronicity. Obtaining any previous outside studies which may be available would be helpful to assess for change in appearance of these fractures. Code 35968 -------- FINAL REPORT -------- Dictated By: Prasanna Cerna Dictated Date: 04/12/2025 07:54 ET Assigned Physician: Prasanna Cerna Reviewed and Electronically Signed By: Prasanna Cerna Signed Date: 04/12/2025 07:56 ET Workstation ID: [id number] Transcribed By: Self Edit Transcribed Date: 04/12/2025 07:54 ET Narrative 04/12/2025 7:56 AM EDT HISTORY: The patient is a 49-year-old female with a provided history of a fracture of L2. No previous imaging study has been performed at this institution and no previous outside study is provided for comparison. The patient fell from a ladder on 02/13/2025. FINDINGS: AP, lateral, and coned-down spot lateral views of the lumbosacral spine are obtained. The study demonstrates normal alignment of the bony structures. There is a mild to moderate compression fracture involving the superior aspect of the L2 vertebral body, apparently known by provided history. There is also a minimal compression fracture of L4, of unknown age. The disc spaces are well-maintained. Procedure Note Prasanna Cerna MD - 04/12/2025 HISTORY: The patient is a 49-year-old female with a provided history of afracture of L2. [facility] and no previous outside study is provided for comparison. Thepatient fell from a ladder on 02/13/2025. FINDINGS: AP, lateral, and coned-down spot lateral views of thelumbosacral spine are obtained. The study demonstrates normal alignment ofthe bony structures. There is a mild to moderate compression fractureinvolving the superior aspect of the L2 vertebral body, apparently knownby provided history. There is also a minimal compression fracture of L4,of unknown age. The disc spaces are well-maintained. IMPRESSION: Mild to moderate compression fracture of the superior aspect of the I6mdlsozhdl body, which is apparently known. There is also a mildcompression fracture of L4, of uncertain chronicity. Obtaining anyprevious outside studies which may be available would be helpful to assessfor change in appearance of these fractures. Code 95481 -------- FINAL REPORT -------- Dictated By: Prasanna Cerna Dictated Date: 04/12/2025 07:54 ET Assigned Physician: Prasanna Cerna Reviewed and Electronically Signed By: Prasanna Cerna Signed Date: 04/12/2025 07:56 ET Workstation ID: [id number] Transcribed By: Self Edit Transcribed Date: 04/12/2025 07:54 ET us Seb Warren MD IMG XR PROCEDURES Final Resu lt * (ABNORMAL) Complete blood count (02/27/2025 7:08 AM EDT) Only the most recent of2 resultswithin the time period is included. [facility] WBC 7.4 4.8 - 10.8 K/mcL LAB HEMETOLOGY METHOD 02/27/2025 12:44 PM [facility] RBC 5.00 4.50 - 5.50 M/mcL LAB HEMETOLOGY METHOD 02/27/2025 12:44 PM [facility] Hemoglobin 13.1(L) 13.5 - 17.5 g/dL LAB HEMETOLOGY METHOD 02/27/2025 12:44 PM [facility] Hematocrit 40.4(L) 42.0 - 54.0 % LAB HEMETOLOGY METHOD 02/27/2025 12:44 PM [facility] MCV 81.6 79.0 - 98.0 FL LAB HEMETOLOGY METHOD 02/27/2025 12:44 PM [facility] MCH 26.5(L) 27.0 - 32.0 pcg LAB HEMETOLOGY METHOD 02/27/2025 12:44 PM [facility] MCHC 32.4 32.0 - 37.0 g/dL LAB HEMETOLOGY METHOD 02/27/2025 12:44 PM [facility] RDW 13.0 11.0 - 15.0 % LAB HEMETOLOGY METHOD 02/27/2025 12:44 PM [facility] Platelets 375 130 - 400 K/mcL LAB HEMETOLOGY METHOD 02/27/2025 12:44 PM [facility] MPV 9.9 7.0 - 11.0 FL LAB HEMETOLOGY METHOD 02/27/2025 12:44 PM [facility] NRBC 0.0 <1.0 % LAB HEMETOLOGY METHOD 02/27/2025 12:44 PM [facility] NRBC Absolute 0.00 <0.10 K/mcL LAB HEMETOLOGY METHOD 02/27/2025 12:44 PM T [facility] Blood Venous blood specimen / Unknown Venipuncture / Unknown 02/27/2025 7:08 AM EDT 02/27/2025 11:18 AM EDT us Marito Morales MD LAB BLOOD ORDERABLES Final Resul t [facility] [address] [place] [address], [place] [phone] * Basic metabolic panel (02/27/2025 7:08 AM EDT) Sodium 136 133 - 145 mmol/L LAB CHEMISTRY METHOD 02/27/2025 12:46 PM [facility] Potassium 4.8 3.5 - 5.5 mmol/L LAB CHEMISTRY METHOD 02/27/2025 12:46 PM [facility] Chloride 101 96 - 110 mmol/L LAB CHEMISTRY METHOD 02/27/2025 12:46 PM [facility] CO2 28 21 - 32 mmol/L LAB CHEMISTRY METHOD 02/27/2025 12:46 PM [facility] Anion Gap 7 3 - 11 LAB CHEMISTRY METHOD 02/27/2025 12:46 PM [facility] Glucose 90 70 - 100 mg/dL LAB CHEMISTRY METHOD 02/27/2025 12:46 PM [facility] BUN 24 5 - 25 mg/dL LAB CHEMISTRY METHOD 02/27/2025 12:46 PM [facility] Creatinine 1.08 0.70 - 1.30 mg/dL LAB CHEMISTRY METHOD 02/27/2025 12:46 PM [facility] eGFR 84 >=60 mL/min/1. 73m2 LAB CHEMISTRY METHOD 02/27/2025 12:46 PM [facility] Comment:Calculation based on the Chronic Kidney Disease Epidemiology Collaboration (CKD-EPI) equation refit without adjustment for race. BUN/Creatinine Ratio 22.2 LAB CHEMISTRY METHOD 02/27/2025 12:46 PM T [facility] Calcium 9.4 8.5 - 10.5 mg/dL LAB CHEMISTRY METHOD 02/27/2025 12:46 PM [facility] Blood Venous blood specimen / Unknown Venipuncture / Unknown 02/27/2025 7:08 AM EDT 02/27/2025 11:18 AM EDT us Marito Morales MD LAB BLOOD ORDERABLES Final Resul t [facility] [address] [place] [address], [place] [phone] * (ABNORMAL) Comprehensive metabolic panel (02/20/2025 6:39 AM EDT) Sodium 130(L) 133 - 145 mmol/L LAB CHEMISTRY METHOD 02/20/2025 12:54 PM [facility] Potassium 4.9 3.5 - 5.5 mmol/L LAB CHEMISTRY METHOD 02/20/2025 12:54 PM [facility] Chloride 97 96 - 110 mmol/L LAB CHEMISTRY METHOD 02/20/2025 12:54 PM [facility] CO2 24 21 - 32 mmol/L LAB CHEMISTRY METHOD 02/20/2025 12:54 PM [facility] Anion Gap 9 3 - 11 LAB CHEMISTRY METHOD 02/20/2025 12:54 PM [facility] Glucose 111(H) 70 - 100 mg/dL LAB CHEMISTRY METHOD 02/20/2025 12:54 PM [facility] BUN 24 5 - 25 mg/dL LAB CHEMISTRY METHOD 02/20/2025 12:54 PM [facility] Creatinine 1.01 0.70 - 1.30 mg/dL LAB CHEMISTRY METHOD 02/20/2025 12:54 PM [facility] eGFR 91 >=60 mL/min/1. 73m2 LAB CHEMISTRY METHOD 02/20/2025 12:54 PM [facility] Comment:Calculation based on the Chronic Kidney Disease Epidemiology Collaboration (CKD-EPI) equation refit without adjustment for race. BUN/Creatinine Ratio 23.8 LAB CHEMISTRY METHOD 02/20/2025 12:54 PM [facility] Calcium 9.2 8.5 - 10.5 mg/dL LAB CHEMISTRY METHOD 02/20/2025 12:54 PM [facility] AST (SGOT) 32 10 - 42 unit/L LAB CHEMISTRY METHOD 02/20/2025 12:54 PM [facility] ALT (SGPT) 63(H) 10 - 60 unit/L LAB CHEMISTRY METHOD 02/20/2025 12:54 PM [facility] Alkaline Phosphatase 75 42 - 121 unit/L LAB CHEMISTRY METHOD 02/20/2025 12:54 PM [facility] Total Protein 7.9 6.0 - 8.0 g/dL LAB CHEMISTRY METHOD 02/20/2025 12:54 PM [facility] Albumin 3.8 3.2 - 5.0 g/dL LAB CHEMISTRY METHOD 02/20/2025 12:54 PM [facility] Total Bilirubin 0.7 0.0 - 1.4 mg/dL LAB CHEMISTRY METHOD 02/20/2025 12:54 PM [facility] Blood Venous blood specimen / Unknown Venipuncture / Unknown 02/20/2025 6:39 AM EDT 02/20/2025 10:04 AM EDT us Marito Morales MD LAB BLOOD ORDERABLES Final Resul t [facility] [address] [place] [address], from Last [address] [place] [address] [place] [address] GENERIC WC GENERIC Care Teams Clerical Coordinator Relationship Specialty Start Date End Date Selma Hong DO PCP - General Internal Medicine 07/18/13
--- OUTSIDE RECORDS SUMMARY | 2025-05-03 08:03 | XMS_ITS | Data Portability ---
Author Organization [facility], Main Office Address [address], [address] [place] [address] Care Team Providers Care Ui Engineer Name Role Phone [facility] OTHER Unavailable Complaint Operator [phone] Assessment Encounter Date Assessment Date Assessment LastModified by Organization Details LastModified Time 02/24/2025 02/24/2025 49yo admitted to [facility] on 02/17/2025 for pain managemnt and acute rehab. Presented to ER after fall from ladder on 02/13/2025 landing on his buttocks and sustaining an ant sup L2 endplate fracture. 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 He reports inadequate safety equipment. Noted CT finding of CHRONIC-APPEARI NG coccygeal fracture and post subluxation of the distal coccyx Noted proscription from Neurosurgery for patient not to lifet/push/pull anything more than 20lbs for next 8 weeks. Noted incidental finding of hemangioma at the post hepatic dome Comorbid hypertension Not available 02/24/2025 11:29:15 Plan of Treatment Reminders Order Date Submit Date Provider Last Modified By Organization Details Last Modified Time Details Appointments None record ed. Lab None record ed. Referral None record ed. Procedures None record ed. Surgeries None record ed. Imaging None record ed. Medication Orders None record ed. Patient TargetsNo targets recorded. Patient Instructions Encounter Date Encounter Id Patient Instructions Last Modified By Organization Details Last Modified Time 02/24/2025 [id number] anticipate discharge soon Not available 02/24/2025 11:26:27 Reason for Referral None Reported. Problems Name Problem SNOMED Code Status Onset Date Resolution Date Notes Provider Name and Address Organization Details Recorded Time Essential hypertensi on 92998981 Active 2024 Digna Knight ierkla [address], [address], [place], [address], [facility] 5 07:28:05 Hemangioma of intra-abdo janna structure 547023587 Active 2024 Not Available [facility] 5 12:02:09 Backache 313671261 Active 2024 Not Available [facility] 15:50:11 Morbid obesity 865145808 Active 2024 Digna Almanza-Glen ierkla [address] [facility], [address], [place], [address], [facility] 5 07:30:00 Fracture of second lumbar vertebra 043797062 Active 2024 Not Available [facility] 12:02:11 Fracture of coccyx 265794073 Active 2024 Not Available [facility] 12:02:59 Fall Active 2024 Not Available [facility] 12:03:00 Muscle weakness 20124245 Active 2024 Not Available [facility] 12:03:02 Unsteady when standing 339647017 Active 2024 Not Available [facility] 5 07:41:20 Closed fracture of second lumbar vertebra 489634472531 37356 Active 2024 Ziggy Garcia MD [address] [facility], [address], [place], [address], [facility] 5 11:23:14 CT of abdomen abnormal 208603459003 06116 Active 2024 Ziggy Garcia MD [address] [facility], [address], [place], [address], [facility] 5 11:29:53 For resuscitat ion 237276186 Active 2024 Ziggy Garcia MD [address] [facility], [address], [place], [address], [facility] 11:30:09 Problem Notes None recorded. Medical Equipment None Reported. Medications Name Sig Start Date Stop Date Status Note LastModified by Organization Details LastModified Time lisinopril 10 mg tablet Give 2 tablet by mouth one time a day for Hypertens ion 2024 active Not Available Not Available Not Avai lable Laxative (sennosides ) 8.6 mg tablet Give 1 tablet by mouth every 24 hours as needed for Constipat ion 2024 active Not Available Not Available Not Avai lable oxycodone 5 mg tablet Give 1 tablet by mouth every 4 hours as needed for Breakthro ugh pain for 7 Days 02/24 completed Not Available Not Available Not Available Stulex 100 mg tablet Give 200 mg by mouth two times a day for Constipat ion 2024 active Not Available Not Available Not Avai lable sodium phosphates 19 gram-7 gram/197 mL enema Insert 1 unit rectally every 24 hours as needed for Constipat ion Use only if Bisacodyl Supposito ry is ineffecti ve 2024 active Not Available Not Available Not Avai lable lactulose 10 gram/15 mL (15 mL) oral solution Give 30 ml by mouth one time only for constipat ion for 1 Day 02/22 completed Not Available Not Available Not Available CycloTENS Refill Lyndon 10 mg tablet and Electrode pads Give 1 tablet by mouth three times a day for Muscle spasms for 30 Days 03/19 completed Not Available Not Available Not Available lidocaine 5 % topical patch-adhes rufino silicone combo pack Apply to R and L side Lumbar area topically one time a day for Pain Managemen t Apply for only 12 hours in a 24 hour period. External use only. and remove per schedule 2024 active Not Available Not Available Not Avai lable OneLAX Bisacodyl 10 mg rectal suppository Insert 1 supposito ry rectally every 24 hours as needed for constipat ion Use if Senna is Ineffecti ve 2024 active Not Available Not Available Not Avai lable Vitals None Recorded Social History None recorded. Functional Status None recorded. Mental Status None recorded. Family History Nothing Reported. Medical History No medical history recorded. Immunizations Vaccine Type Date Status Note Provider Nam e and Address Organization Details Recorded Time influenza, unspecified formulation 07/20/2013 completed Matt Garcia [facility] 02/22/2025 14:01:25 influenza, unspecified formulation 09/07/2020 completed Matt Garcia [facility] 02/22/2025 14:01:30 SARS-COV-2 (COVID-19) vaccine, UNSPECIFIED 02/09/2021 completed Matt Garcia [facility] 02/22/2025 14:01:39 SARS-COV-2 (COVID-19) vaccine, UNSPECIFIED 03/09/2021 completed Matt Garcia [facility] 02/22/2025 14:01:44 Past Encounters Encounter ID Performer Location Encounter Start Date Encounter Closed Date Diagnosis/Indication Diagnosis SNOMED-CT Code Diagnosis ICD10 Code Diagnosis Note [id number] [place] [address] 02/18/2025 10:59:10 02/22/2025 12:46:40 Essential hypertension 01302194 I10 CONTINUE LISINOPRIL MONITOR, ADJUST MEDS IF NEEDED Fall from ladder 9981610 8 W11.XXXS PT EVAL.WALKE R WITH AMBULATION Closed fra cture of second lumbar vertebra 4109212197 4353657 S32.029S PTLIDODERM PATCHES X2 TO LOW BACK Q24 HOURSTYLEN OL 1G Q8 HOURS SCHEDULEDO XYCODONE Backache 502345380 M54.9 SAME ABOVE Morbid obesity 619498642 E66.01 LOW CALORIE INTAKERD EVAL IS NEEDEDPT Closed fra cture of coccyx 343421244 S32.2XXD ABOVE FOR L2 FX. [id number] MAINE LNOG, [place] [address] 02/21/2025 10:49:17 02/22/2025 12:55:14 Essential hypertension 10681822 I10 BP slightly above goalcould be dt acute paincontin ue lisinopril 10 mg dailymonit or BP and if elevated continues will adjust meds Fall from ladder 5568426 8 W11.XXXS continue PT OT Closed fra cture of second lumbar vertebra 7784220143 7627952 S32.029S Has not used oxycontinu e lidocaine patcheswil l schedule tylenol 1000 mg tiddc oxy, not usingmonit or pain Hyponatremia 77449785 E8 7.1 slight, Na 130repeat labs mon to trend Acute constipation 75364 9006 K59.00 continue sched bowel regone time dose lactulose nowif no BM ok to use suppositor ymonitor for movement [id number] MAINE LONG, MARQUES-[address] [place] [address] 02/24/2025 09:29:56 02/28/2025 03:49:52 Essential hypertension 99269827 I10 BP slightly above goal w/ SBP 130scontin ue lisinopril 20 mg dailymonit or BP w/ increasela bs mon Fall from ladder 6926134 8 W11.XXXS making progressco ntinue PT OTpossible dc next week per pt request Closed fra cture of second lumbar vertebra 3218964133 7995188 S32.029S continue lidocaine patchescon t scheduled tylenol 1000 mg tidpain improving, cont to monitor Hyponatremia 29193037 E8 7.1 slight, Na 130repeat labs mon to trend [id number] MD JAKUB [address] [place] [address] 02/24/2025 10:57:54 03/10/2025 11:02:47 Fall from ladder 95918426 W11.XXXS appears to be doing well with PT; using a walkerappa rently using ladder on his own when he wa attending to equipmentw ill follow-up with [employer] [employer] Closed fra cture of second lumbar vertebra 9179706368 2347281 S32.029S as per neurosurg recommenda tions; reviewed with patientwor k related injury Morbid obesity 657223399 E66.01 discussed with patient Closed fra cture of coccyx 437019550 S32.2XXD likely chronic from imaging studies Low back pain 727201059 M54.50 sec to fall injury as well as fracturedi scussed use of narcotics (on average 2 pills a day) along with adjunct as needed muscle relaxant/N SAID/Tylen ol/local modalities discussed need to monitor bowel functions on narcotics Essential hypertension 00807690 I10 on lis 10mg daily; may require more controldis cussed possible SILVER given history of snoring as well as habitus; will follow-up with PCP CT of abdo men abnormal 3297442461 0220916 R93.5 hepatic angioma, not clincially significan t For resuscitation 379266 [address]78[id number] [place] [address] 02/27/2025 11:25:32 03/01/2025 07:08:25 Essential hypertension 37808969 I10 now at goal w/ increased lisnoprilc ontinue lisinopril 20 mg dailymonit or BP w/ increasela bs pending today Fall from ladder 0004925 8 W11.XXXS making progressco ntinue PT OTpossible dc next week per pt request Closed fra cture of second lumbar vertebra 6777822674 6379756 S32.029S continue lidocaine patchescon t scheduled tylenol 1000 mg tidcont flexerilpa in improving, cont to monitor Hyponatremia 89759273 E8 7.1 slight, Na 130labs pending today Acute constipation 9006 K59.00 continue sched bowel regresolve dregular BM daily now [id number] [place] [address] 02/28/2025 09:14:45 03/01/2025 07:09:07 Essential hypertension 41935927 I10 now at goal w/ increased lisnoprilc ontinue lisinopril 20 mg dailymonit or BP w/ increasef/ up with pcp Fall from ladder 8957757 8 W11.XXXS completed PT OTdc home with servicesne eds a walker which PT ordered Closed fra cture of second lumbar vertebra 2477321044 0516227 S32.029S continue lidocaine patchescon t scheduled tylenol 1000 mg tidcont flexerilf/ up outpt Hyponatremia 66291818 E8 7.1 slight, Na 130f/up with pcp for labs Acute constipation 9006 K59.00 continue sched bowel regresolve dregular BM daily now Health Concerns Section Related Observation LastModified by Organization Detai ls LastModified Time None Recorded Concern Status LastModified by Organization Details LastModified Time None Recorded Advance Directives Directive None Recorded Payers Insurance Date Sequence Insurance Name Policy Number Policy Nolasco Covered Member ID Nolasco Member ID Guarantor Name 02/24/2025 1 MEDICAID-[place]: [facility] Eric Theodore [id number] Eric Theodore 02/28/2025 [employer] [id number] [place] [employer] Eric Theodore Notes Date Note Type Note Provider Name and Address Organization Details Recorded Time 02/21/2025 text/html 49 year old male seen for acute rounding. here s/p hospitalization for L2 compression fx after 8 foot fall from ladder. Neuro consult on 02/14 and felt fx was stable with no bracing or surgery needed. Pt seen today. His BP has been slightly above goal. However pt has been having pain. He would like to try sched tylenol. He is participating with therapy. He says his main issue is he needs to have a BM. On full bowel regimen and required laxative on sun but feels he still has to go. PMHxmorbid RADHA Zimmer [address] [facility], [address], [place], [address], [facility] 02/21/2025 11:06:23 02/24/2025 text/html 49 year old male seen for acute rounding. here s/p hospitalization for L2 compression fx after 8 foot fall from ladder. Neuro consult on 02/14 and felt fx was stable with no bracing or surgery needed. Pt seen today. Pain is better controlled on sched APA. He continues to have intermittent constipation. His BP remains above goal. He is agreeable to increase lisinopril and monitor while hes here. He is hoping to dc next week. PMHxmorbid EDWIN ZimmerC [address] [facility], [address], [place], [address], [facility] 02/27/2025 11:29:31 02/27/2025 text/html 49 year old male seen for acute rounding. here s/p hospitalization for L2 compression fx after 8 foot fall from ladder. Neuro consult on 02/14 and felt fx was stable with no bracing or surgery needed. Following up on pt for elevated BP, lisinopril increased. On review his BP is now down about 10 pts and at goal with most recent BP 127/85. He has no dizziness. He has been ambulating with therapy. He does endorse lower back pain during sessions but doesnt want narcotics, prefers to continue tylenol. His BMs are back to normal. MINOxmoRADHA Magallanes [address] [facility], [address], [place], [address], [facility] [employer] 02/27/2025 11:37:21 02/28/2025 text/html 49 year old male seen for discharge summary visit. Pt here s/p hospitalization for L2 compression fx after 8 foot fall from ladder. Neuro consult on 02/14 and felt fx was stable with no bracing or surgery needed. Pt will dc home today. His daughter who is a registered nurse will help with his home care. SW has made referals for community support. Pt will need a walker for ambulation. At this time he is medically clear for dc home with meds and services. Daughter tells me she has made a f/up apt with pt for pcp. MINORADHA Coburn [address] [facility], [address], [place], [address], [facility] [employer] 02/28/2025 09:30:01
[2025-05-03 12:05] LABS: Hematocrit 43.5 % (42.0-52.0); Hemoglobin 14.3 g/dl (14.0-18.0); Mean Corpuscular HGB Conc 32.9 g/dl (31.0-36.0); Mean Corpuscular Hemoglobin 26.4 pg (27.0-33.0); Mean Corpuscular Volume 80.4 fL (80.0-98.0); NRBC Abs Auto 0.000 X10*3/uL (0.0-0.012); NRBC Pct Auto 0.0 /100WBC (0.0-0.2); Platelet Count 355 X10*3/uL (160-400); Red Blood Count 5.41 X10*6/uL (4.60-5.80); White Blood Count 8.2 X10*3/uL (4.8-10.8)
[2025-05-03 12:14] LABS: Hemoglobin A1C 162.2691 umol/L; Total Hemoglobin (HGBA1C) 3708.7379 umol/L
[2025-05-03 12:25] LABS: Alanine Aminotransferase 54 U/L (0-40); Albumin Level 4.5 g/dL (3.5-5.0); Alkaline Phosphatase 73 U/L (39-117); Anion Gap 14 (12-20); Aspartate Amino Transferase 35 U/L (5-37); Blood Urea Nitrogen 19 mg/dL (9-16); Calcium 9.3 mg/dL (8.4-10.2); Carbon Dioxide 25 mmol/L (22-29); Chloride 104 mmol/L (96-108); Cholesterol 179 mg/dL (<200); Estimated Glomerular Filt Rate > 60; HDL Cholesterol 56 mg/dL (>40); Iron 76 mcg/dL (45-160); Percent Iron Saturation 26 % (15-50); Potassium 4.5 mmol/L (3.3-5.1); Sodium 138 mmol/L (135-145); Total Iron Binding Capacity 297 mcg/dL (228-428); Total Protein 7.7 g/dL (6.5-8.0); Triglycerides 87 mg/dL (<150); Unsaturated Iron Binding 221 ug/dL
[2025-05-03 12:33] LABS: Ferritin 165 ng/mL (20-250); Prostate Specific Antigen 0.37 ng/mL (<0.05-4.0)
[2025-05-03 12:34] LABS: Syphilis Screen Nonreactive (Nonreactive)
[2025-05-03 12:34] LABS: HBS Num1 0.08 mIU/mL (0-7.99); HBc Num1 0.11 S/CO (0.00-0.79); HBsAGNum1 0.41 S/CO (0.00-0.99); HIV Num 1 0.06 S/CO (0.00-0.99); Hepatitis B Surface Antigen Negative (Negative); ~HepC Num1 0.18 S/CO (0.00-0.79); ~Hepatitis B Surface Antibody NONREACTIVE (Nonreactive); ~Hepatitis C Antibody Nonreactive (Nonreactive)
[2025-05-03 12:57] LABS: Microalbum/Creatinine Ratio Ur 16.3 ug/mg cr (<30)
[2025-05-03 13:42] LABS: CT PCR Urine NOT DETECTED (Not Detect.); NG PCR Urine NOT DETECTED (Not Detect.)
== END 2025-05-03 08:01 | disposition home or self-care (01) ==
LOC: HO.HHCL 08:00
PROVIDERS: PCP Student in an Organized Health Care Education/Training Program; Visit Provider Student in an Organized Health Care Education/Training Program
DX: Z00.00 Encounter for general adult medical examination without abnormal findings (principal); Z11.59 Encounter for screening for other viral diseases; Z11.3 Encounter for screening for infections with a predominantly sexual mode of transmission; Z11.4 Encounter for screening for human immunodeficiency virus [HIV]
CPT/HCPCS: 36415; 80053; 80061; 82043; 82306; 82570; 82728; 83036; 83540; 84153; 84443; 85027; 86704; 86706; 86780; 86803; 87340; 87389; 87491; 87591

== ENCOUNTER 2025-09-25 09:30 | Outpatient (REF) | payer MEDICAID, SELFPAY ==
--- OUTSIDE RECORDS SUMMARY | 2025-09-25 11:14 | XMS_ITS | Clinical Summary ---
Author Organization [employer] Address [address] [facility] [address] [place] [address] Care Team Providers Care Chief Embalmer Name Role Phone Deborah Bey MD Primary Care Pro vider Allergies No known active allergies Medications acetaminophen (Tylenol) 500 MG tablet Take by mouth. Activ e lidocaine (Lidoderm) 5 % patch Apply 1 patch topically Once per day. Remove & discard patch within 12 hours or as directed by . 30 patch 2 5 Active cholecalciferol (Vitamin D-3) 25 MCG (1000 UT) tablet Take 1 tablet (25 mcg) by mouth Once per day. 90 tablet 1 5 05/04/20 26 Active Diclofenac Sodium 1 % gel APPLY 1 APPLICATION TOPICALLY IF NEEDED EACH DAY (BACK PAIN). 100 g 1 5 Active lisinopril 10 MG tablet Take 1 tablet (10 mg) by mouth Once per day. 90 tablet 1 5 Active buPROPion SR (Wellbutrin SR) 150 MG 12 hr tablet Take 1 tablet (150 mg) by mouth 2 times daily. Do not crush, chew, or split. 60 tablet 2 5 06/21/20 26 Active Active Problems Problem Noted Date Diagnosed Date Prediabetes 05/04/2025 Transaminitis 05/04/2025 Health care maintenance 03/09/2025 Morbid obesity (CMS/HCC) 03/09/2025 Closed stable burst fracture of second lumbar vertebra with routine healing 03/09/2025 Liver lesion 03/09/2025 Closed fracture of coccyx, sequela 03/08/2025 Hypertensive disorder 07/04/2024 Encounters Date Type Department Care Team Description 09/19/2025 Patient Outreach [facility] [address] [place] [address] Deborah Bey MD Pre-visit Planning ([facility] screening was completed on 03/01/2025) 07/20/2025 Refill [facility] [address] [place] [address] Farida Saavedra MD 07/07/2025 Telephone [facility] [address] [place] [address] Deborah Bey MD dec recall from Last 3 Months Immunizations Immunization Administration Dates Next Due Hep B, adult 06/02/2025,05/04/2025 Influenza injectable quadrivalent preservative f ree 09/07/2020 [...] your housing situation today? I have jesus prakash 03/01/[address] you li [...] Sign Reading Time Taken Comments Blood Pressure 120/78 06/21/2025 11:23 AM EDT Pulse 83 06/21/2025 11:23 AM EDT Temperature 36.3 C (97.3 F) 06/21/2025 11:23 AM EDT Respiratory Rate 20 06/21/2025 11:23 AM EDT Oxygen Saturation 97% 06/21/2025 11:23 AM EDT Inhaled Oxygen Concentration - - Weight 156 kg (343 lb) 06/21/2025 11:23 AM EDT Height 182.9 cm (6') 06/21/2025 11:23 AM EDT Body Mass Index 46.52 06/21/2025 11:23 AM EDT Plan of Treatment Upcoming Encounters Date Type Department Care Team (Late st Contact Info) Description 09/28/2025 10:15 AM EST Office Visit [facility] [address] [place] [phone] Deborah Bey MD [address] [place] [phone] 11/02/2025 1:00 PM EST Immunization [facility] [address] [place] [phone] Health Maintenance Due Date Last Done Comments CT Colonography 1975 Colonoscopy 1975 Colorectal Cancer Screening 1975 FIT DNA/Cologuard 1975 FIT 1975 FOBT 1975 Sigmoidoscopy 1975 Family Planning (PISQ) 1990 Hepatitis A Vaccines (1 of 2 - Risk 2-dose series) 1994 Pneumococcal Vaccine: 50+ Years (1 of 1 - PCV) 2025 RSV Patients and Patients Aged 60 years or older (1 - Risk 50-74 years 1-dose series) 2025 Zoster Vaccines (1 of 2) 2025 COVID-19 Vaccine (3 - 2024-2 6 season) 2025 03/09/2021, 02/09/2021 Influenza Vaccine (#1) 2025 , 07/20/2013 Hepatitis B Vaccines (3 of 3 - 19+ 3-dose series) 11/04/2025 06/02/2025, 05/04/2025 SDOH Screening 03/01/2026 03/01/2025 Alcohol/Substance Use Screening 03/08/2026 03/08/2025 Depression Screening 03/08/2026 03/08/2025, 03/08/2025 Disability Screening 03/08/2026 03/08/2025 Diabetes: Hemoglobin A1C 05/03/2026 05/03/2025 Tobacco Screening 06/21/2026 06/21/2025 Lipid Panel 05/03/2030 05/03/2025, 09/21/2020 DTaP/Tdap/Td Vaccines (2 - T d or Tdap) 03/08/2035 03/08/2025 HIV Screening Completed 05/03/2025, 09/21/2020 Hepatitis C Screening Completed 05/03/2025 HIB Vaccines Aged Out No longer eligi [...] Procedure Name Priority Date/Time Associated Diagnosis Comments AMB REFERRAL TO SLEEP MEDICINE Routine 07/31/2025 Annual physical exam Loud snoring HEMOGLOBIN A1C Routine 05/03/2025 8:07 AM EDT Annual physical exam LIPID PANEL, STANDARD Routine 05/03/2025 8:07 AM EDT Annual physical exam HEPATITIS C AB W/REFL TO HCV RNA, QN, PCR Routine 05/03/2025 8:02 AM EDT Annual physical exam HIV 1/2 ANTIGEN/ANTIBODY, FOURTH GENERATION W/RFL Routine 05/03/2025 8:02 AM EDT Annual physical exam from Last 3 Months or Most Recently Relevant to Health Maintenance Results * Referral to Sleep Medicine (07/31/2025) Deborah Conley MD OUTPATIENT REFERR AL ORDERABLES Final Result * (ABNORMAL) Hemoglobin A1c (05/03/2025 8:07 AM EDT) Hemoglobin A1c 6.2(H) <6.0 % [facility] Comment:Hemoglobin A1C Refer ence Range Adults: 4.8 - 6.0 % Non diabetic: < 6.0 % Goal: < 7.0 %Additional Action Suggested: > 8.0 %Note: Hemoglobin A1c results are invalid for patients with abnormal amounts of HbF. Blood transfusions may impact the HbA1c concentration in the patient sample. Estimated Average Glucose 131 mg/dL [facility] Comment:eAG = Estimated ave rage glucose which is %A1C expressed asaverage glucose, using the formula of the A5C-EjzpdlpDleykom Glucose study (ADAG), Diabetes Care, Vol.31,#8,2007 Blood Venous blood specimen / Unknown 05/03/2025 8:07 AM EDT 05/03/2025 11:53 AM EDT us Deborah Conley MD LAB BLOOD ORDERAB LES Final Result Performing Organization Address [facility] [place] [facility]/ZIP Co de Phone Number [facility] [address] [place] [phone] [phone] * (ABNORMAL) Lipid Panel, Standard (05/03/2025 8:07 AM EDT) Triglycerides 87 <150 mg/dL [facility] Comment:Desirable Triglyceri de: less than 150 mg/dLBorderline High Triglyceride 150-199 mg/dLHigh Triglyceride: 200-499 mg/dLVery High Triglyceride: greater than or equal to 5OO mg/dL Cholesterol 179 <200 mg/dL [facility] Comment:Desirable Cholestero l: less than 200 mg/dLBorderline High Cholesterol: 200-239 mg/dLHigh Cholesterol: greater than 239 mg/dL LDL Cholesterol Calculated 106(H) <100 mg/dL [facility] Comment:Desirable LDL: less than 100 mg/dLNear Optimal/Above Optimal LDL: 110- 129 mg/dLBorderline High LDL: 130-159 mg/dLHigh LDL: 160-189 mg/dLVery High LDL: greater than or equal to 190 mg/dL HDL Cholesterol 56 >40 mg/dL [facility] Comment:Desirable HDL: great er than 40 mg/dL Note: This HDL assay may give artificially low results in patients with liver disease. Blood Venous blood specimen / Unknown 05/03/2025 8:07 AM EDT 05/03/2025 11:53 AM EDT us Deborah Conley MD LAB BLOOD ORDERAB LES Final Result Performing Organization Address City/[facility]/ZIP Co de Phone Number [facility] [address] [place] [phone] * Hepatitis C Antibody with Reflex to HCV, RNA, Quantitative, Real-Time PCR (05/03/2025 8:02 AM EDT) Hepatitis C Antibody Nonreactive Nonreactive [facility] Comment:Antibodies to HCV no t detected; does not exclude early acuteHCV infection. Blood Venous blood specimen / Unknown 05/03/2025 8:02 AM EDT 05/03/2025 11:53 AM EDT us Deborah Conley MD LAB BLOOD ORDERAB LES Final Result Performing Organization Address [facility] [place] [facility] Co de Phone Number [facility] [address] [place] [phone] * HIV-1/2 Antigen and Antibodies, Fourth Generation, with Reflexes (05/03/2025 8:02 AM EDT) [facility] [address] HIV AB/AG Nonreactive Nonreactive [facility] Comment:HIV-1 p24 Ag and/or HIV-1/HIV-2 Ab not detected.A test result that is nonreactive does not exclude thepossibility of exposure to or infection with HIV-1 and/orHIV-2. Nonreactive results in this assay for individualswith prior exposure to HIV-1 and/or HIV-2 may be due toantigen and antibody levels that are below the limit ofdetection of this assay.The N4MD HIV Ag/Ab Combo assay result andsupplemental assay results should be interpreted inconjunction with the patient's clinical presentation,history and other laboratory results. If the results areinconsistent with clinical evidence, additional testing issuggested to confirm the result. Blood Venous blood specimen / Unknown 05/03/2025 8:02 AM EDT 05/03/2025 11:53 AM EDT us Deborah Conley MD LAB BLOOD ORDERAB LES Final Result Performing Organization Address [facility]/ZIP Co de Phone Number [facility] [address] [place] [phone] from Last 3 Months or Most Recently Relevant to Health Maintenance Insurance C3 Care Teams Chief Embalmer Relationship Specialty Start Date End Date Deborah Bey MD [address] [place] [phone] PCP - General Internal Medicine 03/09/25
--- OUTSIDE RECORDS SUMMARY | 2025-09-25 11:14 | XMS_ITS | Encounter Summary ---
Author Organization [email or web address] Address [address] [facility] [address] [place] [address] Care Team Providers Care Dietary Aide Cook Name Role Phone Deborah Bey MD Primary Care Pro vider Reason for Visit * Reason Onset Date Comments new pt 02/27/2025 Encounter Details Date Type Department Care Team (Late st Contact Info) Description 02/27/2025 Telephone [facility] [address] [place], [place] [phone] Sherif Allen MD [address] [place], [place] [phone] new pt Social History Tobacco Use Types Packs/Day Years Used Date Smoking Tobacco: Never Assessed Housing Stability Answer Date Recorded What is [...] off services in your home? No 03/01/2025 Internet Access Answer Date Recorded Internet Access Q1 Yes 03/01/2025 Internet Access Q2 Not on file 03/01/2025 Sex and Gender Information Value Date Recorded Sex Assigned at Male 08/25/2022 10:35 AM EDT Legal Sex Male 10:35 AM EDT Gender Identity Male 08/25/2022 10:35 AM EDT Sexual Orientation Choose not to disclose 2021 10:35 AM EDT documented as of this encounter Miscellaneous Notes * Telephone Encounter - Brooklynnjustina He - 02/27/2025 1:27 PM EDT TC from caller requesting NEW PATIENT visit . DX : High blood pressure Fractured mid back 2 fractured coccyx Medical Concern: Insurance name : [facility] Location : Any location Demographic information updated Tc from daughter requesting soonest availability in order for pt to get discharged [facility] documented in this encounter Plan of Treatment Upcoming Encounters Date Type Department Care Team (Late st Contact Info) Description 09/28/2025 10:15 AM EST Office Visit [facility] [address] [place] [phone] Deborah Bey MD [address] [place] [phone] 11/02/2025 1:00 PM EST Immunization [facility] [address] [place] [phone] documented as of this encounter Visit Diagnoses Not on filedocumented in this encounter Care Teams Dietary Aide Cook Relationship Specialty Start Date End Date Deborah Bey MD [address] [place] [phone] PCP - General Internal Medicine 03/09/25 documented as of this encounter
--- OUTSIDE RECORDS SUMMARY | 2025-09-25 11:14 | XMS_ITS | Encounter Summary ---
Author Organization [employer] Address [address] [facility] 7 [place] [address] Care Team Providers Care Ruby On Rails Web Developer Name Role Phone Deborah Bey MD Primary Care Pro vider Reason for Visit * Reason Onset Date Comments Med Refill 03/16/2025 Encounter Details Date Type Department Care Team (Late st Contact Info) Description 03/16/2025 Telephone [facility] [address] [place] [address] Deborah Bey MD [address] [place] [address] Med Refill Social History Tobacco Use Types Packs/Day Years [...] encounter Miscellaneous Notes * Telephone Encounter - Ines Barrios RN - 03/16/2025 3:51 PM EDT TC placed to pt pharmacy [facility] who confirmed that all medications from now on need to be sent to the mail order pharmacy [facility]. This is required by the pt insurance. RN changed the pt preferred pharmacy to [facility]. Will forward to PCP as FYI * Telephone Encounter - Marito Preston - 03/16/2025 11:05 AM EDT TC from pharmacy reports receiving Lisinopril but insurance requiring pt to start utilizing mail order via [facility] . [facility] script [facility] documented in this encounter Plan of Treatment Upcoming Encounters Date Type Department Care Team (Late st Contact Info) Description 09/28/2025 10:15 AM EST Office Visit [facility] [address] [place] [phone] Deborah Bey MD [address] [place] [address] 11/02/2025 1:00 PM EST Immunization [facility] [address], [place] [phone] documented as of this encounter Visit Diagnoses Not on filedocumented in this encounter Additional Health Concerns Assessment Noted Time PHQ-9 Depression Total Score: 0 03/08/20 9:22 AM EDT documented as of this encounter Care Teams Ruby On Rails Web Developer Relationship Specialty Start Date End Date Deborah Bey MD [address] [place] [address] PCP - General Internal Medicine 03/09/25 documented as of this encounter
--- OUTSIDE RECORDS SUMMARY | 2025-09-25 11:14 | XMS_ITS | Encounter Summary ---
Author Organization [employer] Address [address] [place] [address] Care Team Providers Care Internet Salesperson Name Role Phone Deborah Bey MD Primary Care Pro vider Reason for Visit * Reason Comments Med Refill Encounter Details Date Type Department Care Team (Late st Contact Info) Description 07/20/2025 Refill [facility] [address] [place] [address] Farida Saavedra MD [address] [place] [address] Social History Tobacco Use Types Packs/Day Years [...] AM EDT documented as of this encounter Plan of Treatment Upcoming Encounters Date Type Department Care Team (Late st Contact Info) Description 09/28/2025 10:15 AM EST Office Visit [address] [address] Deborah Bey MD [address] [place] [address] 11/02/2025 1:00 PM EST Immunization [facility] [address] [place] [phone] documented as of this encounter Visit Diagnoses Not on filedocumented in this encounter Additional Health Concerns Assessment Noted Time PHQ-9 Depression Total Score: 0 03/08/20 9:22 AM EDT documented as of this encounter Care Teams Internet Salesperson Relationship Specialty Start Date End Date Deborah Bey MD [address] [place] [phone] PCP - General Internal Medicine 03/09/25 documented as of this encounter
[2025-09-25 12:07] LABS: Alanine Aminotransferase 78 U/L (0-40); Albumin Level 4.4 g/dL (3.5-5.0); Alkaline Phosphatase 68 U/L (39-117); Anion Gap 10 (12-20); Aspartate Amino Transferase 41 U/L (5-37); Blood Urea Nitrogen 20 mg/dL (9-16); Calcium 9.2 mg/dL (8.4-10.2); Carbon Dioxide 24 mmol/L (22-29); Chloride 107 mmol/L (96-108); Estimated Glomerular Filt Rate > 60; Potassium 4.3 mmol/L (3.3-5.1); Sodium 137 mmol/L (135-145); Total Protein 7.9 g/dL (6.5-8.0)
== END 2025-09-25 09:31 | disposition home or self-care (01) ==
LOC: HO.HHCL 09:30
PROVIDERS: PCP Student in an Organized Health Care Education/Training Program; Visit Provider Student in an Organized Health Care Education/Training Program
DX: R73.03 Prediabetes (principal)
CPT/HCPCS: 36415; 80053; 83036

== ENCOUNTER 2025-10-04 13:52 | Outpatient (AMB) | payer MEDICAID, SELFPAY ==
--- NOTE | 2025-10-04 13:56 | MHC.OFFVIS ---
Vital Signs 10/04/25 14:09 Height 6 ft Weight 360 lb BMI 48.8 BP 142/86 H Blood Pressure Location Lt brachial Position Sitting Pulse 96 Pulse Source Pulse Oximeter Pulse Oximetry (%) 95 Oxygen Delivery Method Room Air Intake Visit Reasons: Colonoscopy Screening Intake Note: New pt for initial colo screening. CC: C/O frequent GERD, epigastric pain, and dysphagia. Pt states he only takes Tums OTC which does not provide much relief. No additional sx or concerns. Pt does report new diagnosis of Type 2 diabetes and mounjaro has been ordered but not started yet. Corn Press Operator Required: No Accompanied by: Self / Same As Patient Allergies No Known Allergies Allergy (Verified 03/14/25 09:22) HPI HPI Colonoscopy Screening: Details: 50 year old? male with past medical history of varicose veins, hypertension, transaminitis, newly diagnosed diabetes is here today for pre colonoscopy screening.? Patient was sent to us by his PCP.? This is his first colonoscopy screening.? Patient reports that recently few months ago he acquired PCP and underwent several testing. Found out that he is diabetic. Currently is not taking anything for diabetes. PCP prescribed Mounjaro, however insurance is not paying for it yet. Patient is waiting from PCP to see if it will be approved. Patient reports severe acid reflux. Sometimes acid reflux so bed and wakes up patient from sleep. Feels acid going up all the way to his throat. Patient usually takes Rolaids or Tums for it with minimal effect. Patient denies any nausea or vomiting. Patient reports that he eats mostly [place] food. Not trying to be on any particular diet. Denies dyspepsia, dysphagia or odynophagia. Reports epigastric burning postprandially followed by reflux about 1 hour after he eats. Symptoms are happening often, almost every day. Patient denies melena, hematochezia, unintentional weight loss or ribbon like stools. Patient denies any family history of colon cancer. [facility] Medical History (Updated 10/04/25 @ 14:48 by Shaneka Krueger [facility]) GERD (gastroesophageal reflux disease) Closed fracture of coccyx Closed stable burst fracture of second lumbar vertebra with routine healing Transaminitis Liver lesion Type 2 diabetes mellitus HTN (hypertension) Social History (Updated 10/04/25 @ 14:01 by Jhony Cano CCMA) Alcohol intake: former Patient Tobacco Use Status: Former Tobacco user Review of Systems Const Denies weight gain and Denies weight loss ENT Reports no additional complaints, Denies dysphagia and Denies odynophagia Card Reports no additional complaints Resp Reports no additional complaints GI Reports abdominal pain, Denies belching, Denies melena, Reports bloating, Denies change in bowel habits, Denies dysphagia, Denies excessive flatus, Denies dyspepsia, Reports heartburn, Denies diarrhea, Denies loose stools, Denies nausea, Denies odynophagia and Denies vomiting Reports no additional complaints Musc Reports no additional complaints Neuro Reports no additional complaints Psych Reports no additional complaints Endo Reports no additional complaints Physical Exam Vital Signs: Last Vital Signs Pulse 96 10/04/25 14:09 BP 142/86 H 10/04/25 14:09 Pulse Ox 95 10/04/25 14:09 Oxygen Delivery Method Room Air 10/04/25 14:09 BMI result Body Mass Index 48.8 Const General: healthy appearing, no acute distress and well developed Nutritional Appearance: well nourished Orientation/consciousness: patient oriented x3 Resp Effort & Inspection: normal respiratory effort, able to speak in complete sentences, no tracheal deviation and symmetric chest movement Auscultation: clear to auscultation bilaterally Cardio Rate: regular rate GI Inspection: Yes normal to inspection, No distended and Yes obesity Palpation (GI): Soft to palpation, not firm, nontender and No hepatosplenomegaly present Auscultation: normal bowel sounds General: Yes no CVA tenderness Back/Spine/Pelvis Back: no CVA tenderness Skin General skin exam: elasticity normal, turgor normal and dry skin Neuro General: patient oriented x3 Psych Appearance: grossly normal Mental Status: mental status grossly normal Assessment & Plan Assessment & Plan (1) Screen for colon cancer: Code(s): Z12.11 - Encounter for screening for malignant neoplasm of colon (2) GERD (gastroesophageal reflux disease): Code(s): K21.9 - Gastro-esophageal reflux disease without esophagitis Category: Medical (3) Postprandial epigastric pain: Code(s): R10.13 - Epigastric pain Plan Will check H pylori and trach empirically positive. Check transglutaminase, lipase, vitamin B12, folate and vitamin-D level. Patient will go for upper GI series with barium swallow. Patient will start taking pantoprazole every morning half an hour before breakfast. Avoid dietary triggers and like a snacking. Staying upright for minimum 3 hours after meals discussed with patient. He will return in 2 months to discuss upper endoscopy and colonoscopy. He will call us if he will have any GI concerning symptoms. He is agreeable to this plan and verbalizes understanding of instructions. He was given the opportunity to ask questions and all questions answered. Thank you for allowing me to participate in his care Orders: Orders Transglutaminase IgA Today R10.9 - Unspecified abdominal pain Lipase Today R10.9 - Unspecified abdominal pain H Pylori Breath Test Today K21.9 - Gastro-esophageal reflux disease without esophagitis Vitamin B12 and Folate Today R19.7 - Diarrhea, unspecified Vitamin D 25-OH (D2 and D3) Today E55.9 - Vitamin D deficiency, unspecified [place] upper GI w air w Ba Swallow Today K21.9 - Gastro-esophageal reflux disease without esophagitis Medications: New pantoprazole take one tablet half an hour before breakfast 40 mg PO DAILY 30 tabs 3RF K21.9 - Gastro-esophageal reflux disease without esophagitis Coding Level of Care Code New Pt Level 4 (48628) Diagnoses Screen for colon cancer Z12.11 GERD (gastroesophageal reflux disease) K21.9 Postprandial epigastric pain R10.13 Time Spent (min) 50 Comment 35 minutes spent with patient and additional 15 minutes spent reviewing his records
[2025-10-04 14:09] VITALS: BP 142/86; PULSE 96; O2SAT 95; BMI 48.8
== END 2025-10-04 14:47 | disposition home or self-care (01) ==
LOC: HO.HGI 13:53
PROVIDERS: PCP Student in an Organized Health Care Education/Training Program; Visit Provider Nurse Practitioner Family
DX: Z01.818 Encounter for other preprocedural examination (principal); Z12.11 Encounter for screening for malignant neoplasm of colon; K21.9 Gastro-esophageal reflux disease without esophagitis; R10.13 Epigastric pain
CPT/HCPCS: 99204

== ENCOUNTER 2025-10-04 13:52 | Outpatient (REF) | payer MEDICAID, SELFPAY ==
--- OUTSIDE RECORDS SUMMARY | 2025-05-04 09:30 | XMS_ITS | Encounter Summary ---
Author Organization [employer] Address [address] [place] [address] [address] [place] [address] Care Team Providers Care Onboarding Specialist Name Role Phone Deborah Bey MD Primary Care Pro vider Reason for Referral * Imaging (Routine) - Closed Specialty Diagnoses / Procedures Referred By Ami antonio Referred To Contact Radiology Diagnoses Liver lesion Procedures US Abdomen Complete Deborah Bey MD [address] [place] [address] Phone: tel: fax: [facility] Referral ID Status Reason Start Date Expiration Date Visits Re quested Visits Authorized [id number] Closed 05/04/2025 05/04/2026 1 1 * Consultation (Routine) - Closed Specialty Diagnoses / Procedures Referred By Ami antonio Referred To Contact Optometry Diagnoses Hypertension, unspecified type Deborah Bey MD [address] [place] [address] Phone: tel: fax: [facility] [address] [place] [address] Phone: tel: fax: Referral ID Status Reason Start Date Expiration Date V isits Requested Visits Authorized [id number] Closed Consult and Treat 05/04/2025 05/04/2026 1 1 Encounter Details Date Type Department Care Team (Late st Contact Info) Description 05/04/2025 10:30 AM EDT Office Visit [facility] [address] [place] [address] Deborah Bey MD [address] [place], [place] [phone] Hypertension, unspecified type (Primary Dx); Liver lesion; Encounter for immunization; Morbid obesity (CMS/HCC); Closed stable burst fracture of second lumbar vertebra with routine healing; Health care maintenance; Prediabetes; Transaminitis Social History Tobacco Use Types Packs/Day Years Used Date Smoking Tobacco: Former Cigarettes Passive Smoke Exposure: Never Smokeless Tobacco: Never Tobacco Cessation:Counseling Given: Not Answered Comments:Started 14 y of age until 34 [...] not to disclose 2021 10:35 AM EDT documented as of this encounter Last Filed Vital Signs Vital Sign Reading Time Taken Comments Blood Pressure 130/84 05/04/2025 10:35 AM EDT Pulse 92 05/04/2025 10:32 AM EDT Temperature 36.3 C (97.3 F) 05/04/2025 10:32 AM EDT Respiratory Rate 20 05/04/2025 10:32 AM EDT Oxygen Saturation 99% 05/04/2025 10:32 AM EDT Inhaled Oxygen Concentration - - Weight 157 kg (347 lb 3.2 oz) 05/04/2025 10:32 A M EDT Height 182.9 cm (6') 05/04/2025 10:32 AM EDT Body Mass Index 47.09 05/04/2025 10:32 AM EDT documented in this encounter Progress Notes * Deborah Conley MD - 05/04/2025 10:30 AM EDT Subjective Patient ID: Eric Theodore is a 49 y.o. male who presents for f up apt HPI 49 y o M from [place] ( lives [place] ) , w PMX of Obesity, HTN ,PreDM Comes for f up apt Reports following w orthopedic for vertebral fracture and PT No new complaints ------ Assessment and Plan: Health care maintenance -Annual exam 02/2025 -PSA 04/2025 wnl -colonoscopy : never -referred to GI ---has apt for 06/2025 -vaccines s/p COVID 19 x2 , Tdap 02/2025. -advised for COVID 19 and Flu vaccine in 06/2025 ,Hep B notimmune -interested in start vaccination-started today --- -04/2025 Vit D 22.6 -start vit D 1000 u daily for 6 mo Morbid Obesity BMI 47<--45 -gained 14 pounds in last 3 mo -Advised pt to improve diet and exercise,discussed healthy life style -discussed it operations specialist referral ---has apt schedule already per pt -on ASA for primery prevention -takes on and off -Pt w morbid obesity, loud snoring , fatigue referred to sleep med ---has apt for 07/2025 per pt -Trial w wellbutrin 100 mg daily for 1 week then to increase to BID Unlikely will get cover combination of naltrexone w wellbutrin ,not candidate for phenterime w not fully controlled HTN -if SILVER dxed and ongoing preDM will px zepbound next apt specially If wellbutrin not helpful . No contraindications for med -F in 8 weeks to monitor weight PreDM -04/2025 hb1AC 6.2 ,LDL 106, total ch 179,HDL 56 ,trig 87 ASCVD 2.8% ( no indication for statins use nor ASA) -repeat chem,hb1AC in 3 mo HTN Controlled BP here -04/2025 microalb neg -Will do EKG at next apt and decide if to continue ASA -Pt to bring home BP readings -has BP machine at home -continue lisinopril 10 mg daily -ophthalmology -referred today L2 fracture/old coccyx fracture w subluxation Reports fell from ladder at work-6 steps up ,lost balance after ladder moved ,this occurred 02/13/2025 went to ED [facility] ,hospitalized 5 days and the dc to rehab for L2 fx abd apparently old coccyx fracture w subluxation ,CT head,neck reported normal from ED papers CT lumbar and thoracic spine showed acute fracture of anterior superior endplate of L2 and distal coccyx ,noted incidentally possible liver hemangioma Now at home walk w RW w wheels ,pain now 6/10 takes tylenol ,muscle relaxants improving from before,has lidoderm patches . Pt is following w compensation -CT abd/pelvis 01/2025 chronic appearing fracture and posterior subluxation of distal coccys ,Arthritis changes in symphysis pubis . Posterior hematic dome heterogeneous lesion suggesting hematoma -CT thoracic/lumbar spine 01/2025 : Acute Fracture involving the anterior superior endplate of L2 vertebra ,degenerative changes in disc L5-S1 level -CT head/neck 01/2025 Mild mx level degenerative changes with mild anterior spurring C3-C4 disc osteophyte complex and facet arthritic changes -Lumbar XR 04/12/2025 Mild to moderate compression fracture of the superior aspect of the L2 vertebral body, which is apparently known. There is also a mild compression fracture of L4, of uncertain chronicity. Obtaining any previous outside studies which may be available would be helpful to assess for change in appearance of these fractures. -pxed today Lidoderm patches and diclofenac topical -pt to continue to follow with compensation ,states started PT yesterday 3 times a a week -Pt stats has apt w orthopedic surgeon -has f up apt 05/18/2025 Liver lesion -CT abd/pelvis 01/2025 chronic appearing fracture and posterior subluxation of distal coccys ,Arthritis changes in symphysis pubis . Posterior hematic dome heterogeneous lesion suggesting hemangioma -referred today for Abd US Transaminitis -04/2025 ALT 54 AST 35 Taking twice a day tylenol ,denies NSAIDS use nor ETOH Can be from tylenol,obesity -Advised to avoid excess tylenol -repeat chem,hb1AC in 3 mo Review of Systems Constitutional: Negative. Respiratory: Negative. Cardiovascular: Negative. Objective BP 130/84 (BP Location: Left arm, Patient Position: Sitting, BP Cuff Size: Large adult) Pulse 92 Temp 97.3 ??F (36.3 ??C) (Temporal) Resp 20 Ht 6' (1.829 m) Wt 347 lb 3.2 oz (157 kg) MdM108% BMI 47.09 kg/m?? Physical Exam Constitutional: General: He is not in acute distress. Appearance: Normal appearance. He is obese. Neurological: Mental Status: He is alert. Assessment/Plan Problem List Items Addressed This Visit Hypertensive disorder - Primary Relevant Orders Referral to [facility] Health care maintenance Morbid obesity (CMS/HCC) Closed stable burst fracture of second lumbar vertebra with routine healing Relevant Medications buPROPion SR (Wellbutrin SR) 100 MG 12 hr tablet Liver lesion Relevant Orders US Abdomen Complete Prediabetes Transaminitis Other Visit Diagnoses Encounter for immunization Relevant Medications acetaminophen (Tylenol) 500 MG tablet Other Relevant Orders HEPATITIS B VACCINE ADULT 20 yrs + (Completed) documented in this encounter Plan of Treatment Upcoming Encounters Date Type Department Care Team (Late st Contact Info) Description 10/05/2025 1:30 PM EST Office Visit [facility] [address] [place] [phone] Li Herman, OD [address] [place] [address] 11/02/2025 1:00 PM EST Immunization [facility] [address] [place] [address] Scheduled Orders Name Type Priority Associated Diagnoses Orde r Schedule US Abdomen Complete Imaging Routine Liver lesion Expected: 05/04/2025, Expires: 05/04/2026 Scheduled Referrals Name Type Priority Associated Diagnoses Orde r Schedule Referral to [facility] Outpatient Referral Routine Hypertension, unspecified type Expected: 05/04/2025 (Approximate), Expires: 05/04/2026 documented as of this encounter Goals Goal Patient Goal Type Associated Problems Recent Progress Patient-Stated? Author Help patients manage their type 2 diabetes Care Plan Help patients manage their type 2 diabetes No Deborah Bey MD Weekly blood pressure task Care Plan Weekly blood pressure task No Deborah Bey MD Help patients manage their type 2 diabetes Care Plan Help patients manage their type 2 diabetes No Deborah Bey MD Patient has chronic kidney disease Care Plan Patient has chronic kidney disease No Deborah Bey MD Weekly blood pressure task Care Plan Weekly blood pressure task No Deborah Bey MD Patient has chronic kidney disease Care Plan Patient has chronic kidney disease No Deborah Bey MD Weekly blood pressure task Care Plan Weekly blood pressure task No MaringouinMarcia maddox Weekly blood pressure task Care Plan Weekly blood pressure task No Maringouin, Marcia Patient has chronic kidney disease Care Plan Patient has chronic kidney disease No Maringouin, Marcia Patient has chronic kidney disease Care Plan Patient has chronic kidney disease No Maringouin, Marcia Weekly blood pressure task Care Plan Weekly blood pressure task No Vazquezortiz, Providencia Weekly blood pressure task Care Plan Weekly blood pressure task No Vazquezortiz, Providencia Patient has chronic kidney disease Care Plan Patient has chronic kidney disease No Vazquezortiz, Providencia Patient has chronic kidney disease Care Plan Patient has chronic kidney disease No Vazquezortiz, Providencia documented as of this encounter Visit Diagnoses Diagnosis Hypertension, unspecified type- Primary Liver lesion Other specified disorders of liver Encounter for immunization Morbid obesity (CMS/HCC) (HCC) Morbid obesity Closed stable burst fracture of second lumbar vertebra with routine healing Health care maintenance Prediabetes Other abnormal glucose Transaminitis Nonspecific elevation of levels of transaminase or lactic acid dehydrogenase (LDH) documented in this encounter Additional Health Concerns Active Problems Noted Date Diagnosed Date Help patients manage their type 2 diabetes 09/28 Weekly blood pressure task 09/28/2025 Help patients manage their type 2 diabetes 09/28 Patient has chronic kidney disease 09/28/2025 Weekly blood pressure task 09/28/2025 Patient has chronic kidney disease 09/28/2025 Weekly blood pressure task 09/29/2025 Weekly blood pressure task 09/29/2025 Patient has chronic kidney disease 09/29/2025 Patient has chronic kidney disease 09/29/2025 Weekly blood pressure task 09/29/2025 Weekly blood pressure task 09/29/2025 Patient has chronic kidney disease 09/29/2025 Patient has chronic kidney disease 09/29/2025 Assessment Noted Time PHQ-9 Depression Total Score: 0 03/08/20 9:22 AM EDT documented as of this encounter Care Teams Onboarding Specialist Relationship Specialty Start Date End Date Deborah Bey MD [address] [place] [phone] PCP - General Internal Medicine 03/09/25 documented as of this encounter
--- OUTSIDE RECORDS SUMMARY | 2025-09-28 10:15 | XMS_ITS | Encounter Summary ---
Author Organization [employer] Address [address] [place] [address] 7 [place] [address] Care Team Providers Care Respite Coordinator Name Role Phone Deborah Bey MD Primary Care Pro vider Reason for Referral * Imaging (STAT) - Pending Review Specialty Diagnoses / Procedures Referred By Contac t Referred To Contact Radiology Diagnoses Liver mass Procedures MRI Liver w/wo Contrast Deborah Bey MD [address] [place] [address] Phone: tel: fax: Referral ID Status Reason Start Date Expiration Date V isits Requested Visits Authorized [id number] Pending Review 09/28/2025 09/28/2026 1 1 * Consultation (Routine) - Authorized Specialty Diagnoses / Procedures Referred By Contac t Referred To Contact Nutrition Diagnoses Type 2 diabetes mellitus without complication, without long-term current use of insulin (HCC) Morbid obesity (CMS/HCC) (HCC) Deborah Bey MD [address] [place] [address] Phone: tel: fax: Referral ID Status Reason Start Date Expiration Date Visits Requested Visits Authorized [id number] Authorized Consult and Treat 09/28/2025 09/28/2026 1 1 Encounter Details Date Type Department Care Team (Late st Contact Info) Description 09/28/2025 10:15 AM EST Office Visit [facility] [address] [place] [address] [place] [address] Deborah Bey MD [address] [place], [place] [phone] Type 2 diabetes mellitus without complication, without long-term current use of insulin (HCC) (Primary Dx); Morbid obesity (CMS/HCC) (HCC); Encounter for immunization; Liver mass; Primary hypertension; Liver lesion; Transaminitis; Health care maintenance; Closed stable burst fracture of second lumbar vertebra with routine healing; Dry cough Social History Tobacco Use Types Packs/Day Years [...] Sign Reading Time Taken Comments Blood Pressure 138/88 09/28/2025 10:22 AM EST Pulse 88 09/28/2025 10:22 AM EST Temperature 36.3 C (97.3 F) 09/28/2025 10:22 AM EST Respiratory Rate 20 09/28/2025 10:22 AM EST Oxygen Saturation 97% 09/28/2025 10:22 AM EST Inhaled Oxygen Concentration - - Weight 163 kg (360 lb) 09/28/2025 10:22 AM EST Height 182.9 cm (6') 09/28/2025 10:22 AM EST Body Mass Index 48.82 09/28/2025 10:22 AM EST documented in this encounter Progress Notes * Deborah Conley MD - 09/28/2025 10:15 AM EST Subjective Patient ID: Eric Theodore is a 50 y.o. male who presents for f up apt HPI 50 y o M from [place] ( lives [place] ) , w PMX of Obesity, HTN ,newly dxed DM2 L2 fracture/old coccyx fracture w subluxation f w Orthopedic Comes for f up apt Reports Nocturnal cough- dry ,usually presents in cold weather Denies thinks related w lisinopril since improves and returns usually around this time of year ,reports taking Saad inh for couple of years ------ Assessment and Plan: Health care maintenance -Annual exam 02/2025 -PSA 04/2025 wnl -colonoscopy : never -referred to GI ---gave today information to pt to call for apt -vaccines s/p COVID 19 x2 , Tdap 02/2025. -COVID 19 and Flu vaccine today in office ,Hep B not immune s/p 2 doses ,3rd one planned for 10/2025 Pxed today Shingrix vaccine series to his px ------ -04/2025 Vit D 22.6 -started already vit D 1000 u daily for 6 mo will repeat level at annual exam Morbid Obesity BMI 48<--- 46<---47<--45 -gained 17 pounds in last 4 mo not candidate for phentermine w not fully controlled hypertension.Tried wellbutrin w no effect in weight -Advised pt to improve diet and exercise,discussed healthy life style -discussed judicial assistant referral ---referred today again -Pt w morbid obesity, loud snoring , fatigue referred to sleep med -- gave today information to pt to call for apt -On wellbutrin 150 mg BID w no improvement in weight -will stop med w no benefit . Explained pt to start taking med only daily for next 10 days and then stop -newly dxed DM today and worsening morbid Obesity ,clinically likely [facility] pd to get evaluation . Pt will greatly benefit from inj med -start Mounjaro 2.5 mg and increase dose monthly -will discuss w pt about Bariatric surgery referral if interested at next apt if not able to obtaininj med DM2 -09/2025 Hb1ac 6.6 <--- 6.2 ,LDL 106, total ch 179,HDL 56 ,trig 87 ASCVD 2.8% ( no indication for statins use nor ASA) -apt w plant attendant referred before---not seen yet --pt will check today w [facility] to get apt -referred to judicial assistant today -diet changes advised -start Mounjaro today 2.5 mg weekly and increase monthly if tolerates - Pt denies any personal or family Hx of thyroid cancer nor Hx of pancreatitis, explained how to inj and possible SE --will increase dose montly -will offer statins at next apt -DM labs in 3 mo -ordered today -will do foot exam at next apt HTN Controlled BP here -04/2025 microalb neg -EKG done 05/2025 for baseline is NSR,HR 83, Qtc 412, no ischemic findings ,TWI only in lead III -Pt to bring home BP readings -has BP machine at home---per pt BP < 140/90 -continue lisinopril 10 mg daily -apt w plant attendant referred before---not seen yet --pt will check today w [facility] to get apt L2 fracture/old coccyx fracture w subluxation Reports fell from ladder at work-6 steps up ,lost balance after ladder moved ,this occurred 02/13/2025 went to ED [facility] ,hospitalized 5 days and the dc to [...] for change in appearance of these fractures. -Lidoderm patches and diclofenac topical -pt to continue to follow with compensation -f w orthopedic surgeon -following w PT Liver lesion -CT abd/pelvis 01/2025 chronic appearing fracture and posterior subluxation of distal coccys ,Arthritis changes in symphysis pubis . Posterior hematic dome heterogeneous lesion suggesting hemangioma -Abdominal US 04/2025 Diffusely echogenic parenchyma ,There is an ill defined 5.5 x 4.7 x 5 cm hypoechoic focus in the posterior right lobe possible corresponding w finding in CT , rec for liver mass protocol MRI -informed pt result of abdominal US and referred for liver mass protocol MRI as STAT Image was performed in 04/2025 but we never received image result . Today in office I requested [place] to get result , result was not in EPIC system in clinic and MARII found it in [facility] --informed issue to Marcia S today Transaminitis -09/2025 AST 41, ALT 78< ---- ALT 54 AST 35 tylenol sporadically,denies NSAIDS use nor ETOH Seems most likely from Obesity Does have liver mass in [place] -Advised to avoid excess tylenol ,NSAIDS and ETOH -referred today for liver MRI -management as in Obesity Dry Cough Reports Nocturnal cough- dry ,usually presents in cold weather Denies thinks related w lisinopril since improves and returns usually around this time of year ,reports taking Saad inh for couple of years -trial w Benzonatate PRN for a week -monitor cough at next apt , if no better next apt will consider to change BP jorge Review of Systems -dry cough -gain weight Objective BP 138/88 (BP Location: Left arm, Patient Position: Standing, BP Cuff Size: Large adult) Pulse 88 Temp 97.3 ??F (36.3 ??C) (Temporal) Resp 20 Ht 6' (1.829 m) Wt 360 lb (163 kg) SpO2 97% BMI 48.82 kg/m?? Physical Exam Constitutional: General: He is not in acute distress. Appearance: Normal appearance. He is obese. He is not ill-appearing. Neurological: Mental Status: He is alert. Assessment/Plan Problem List Items Addressed This Visit Hypertensive disorder Health care maintenance Morbid obesity (CMS/HCC) (HCC) Relevant Medications Tirzepatide (Mounjaro) 2.5 MG/0.5ML solution auto-injector Other Relevant Orders Referral to Nutrition Therapy Closed stable burst fracture of second lumbar vertebra with routine healing Liver lesion Transaminitis Type 2 diabetes mellitus without complication, without long-term current use of insulin (HCC) - Primary Relevant Medications Tirzepatide (Mounjaro) 2.5 MG/0.5ML solution auto-injector Other Relevant Orders Referral to Nutrition Therapy Albumin, Random Urine W/Creatinine Comprehensive Metabolic Panel Hemoglobin A1c Lipid Panel, Standard Vitamin B12 (Cobalamin) and Folate Panel, Serum Dry cough Relevant Medications benzonatate (Tessalon) 200 MG capsule Other Visit Diagnoses Encounter for immunization Relevant Medications zoster vaccine-recombinant adjuvanted (Shingrix) 50 MCG/0.5ML vaccine Other Relevant Orders COVID-19 VACCINE [id number] (Comirnaty) 12 yrs to 18 yrs (Completed) FLU VACCINE TRIVALENT [id number] (Fluarix) 19 yrs + (Completed) Liver mass Relevant Orders MRI Liver w/wo Contrast documented in this encounter Plan of Treatment Upcoming Encounters Date Type Department Care Team (Late st Contact Info) Description 10/05/2025 1:30 PM EST Office Visit [facility] [address] [place], [place] [phone] Li Herman, OD [address] [place], [place] [phone] 11/02/2025 1:00 PM EST Immunization [facility] [address] [place], [place] [phone] Scheduled Orders Name Type Priority Associated Diagnoses Orde r Schedule Albumin, Random Urine W/Creatinine Lab Routine Type 2 diabetes mellitus without complication, without long-term current use of insulin (HCC) Expected: 12/27/2025 (Approximate), Expires: 09/28/2026 Comprehensive Metabolic Panel Lab Routine Type 2 diabetes mellitus without complication, without long-term current use of insulin (HCC) Expected: 12/27/2025 (Approximate), Expires: 09/28/2026 Hemoglobin A1c Lab Routine Type 2 diabetes mellitus without complication, without long-term current use of insulin (HCC) Expected: 12/27/2025 (Approximate), Expires: 09/28/2026 Lipid Panel, Standard Lab Routine Type 2 diabetes mellitus without complication, without long-term current use of insulin (HCC) Expected: 12/27/2025 (Approximate), Expires: 09/28/2026 Vitamin B12 (Cobalamin) and Folate Panel, Serum Lab Routine Type 2 diabetes mellitus without complication, without long-term current use of insulin (HCC) Expected: 12/27/2025 (Approximate), Expires: 09/28/2026 MRI Liver w/wo Contrast Imaging STAT Liver mass Expected: 09/28/2025, Expires: 09/28/2026 Scheduled Referrals Name Type Priority Associated Diagnoses Orde r Schedule Referral to Nutrition Therapy Outpatient Referral Routine Type 2 diabetes mellitus without complication, without long-term current use of insulin (HCC) Morbid obesity (CMS/HCC) (HCC) Expected: 09/28/2025 (Approximate), Expires: 09/28/2026 documented as of this encounter Goals Goal [...] Care Plan Weekly blood pressure task No [place], Marcia Weekly blood pressure task Care Plan Weekly blood pressure task No [place], Marcia Patient has chronic kidney disease Care Plan Patient has chronic kidney disease No [place], Marcia Patient has chronic kidney disease Care Plan Patient has chronic kidney disease No [place], Marcia Weekly blood pressure task Care Plan [...] as of this encounter Visit Diagnoses Diagnosis Type 2 diabetes mellitus without complication, without long-term current use of insulin (HCC)- Primary Morbid obesity (CMS/HCC) (HCC) Morbid obesity Encounter for immunization Liver mass Unspecified disorder of liver Primary hypertension Unspecified essential hypertension Liver lesion Other specified disorders of liver Transaminitis Nonspecific elevation of levels of transaminase or lactic acid dehydrogenase (LDH) Health care maintenance Closed stable burst fracture of second lumbar vertebra with routine healing Dry cough Cough documented in this encounter Additional Health Concerns [...] documented as of this encounter Care Teams Respite Coordinator Relationship Specialty Start Date End Date Deborah Bey MD [address] [place] [id number] PCP - General Internal Medicine 03/09/25 documented as of this encounter
[2025-10-04 16:38] LABS: Lipase 30 U/L (8-78)
[2025-10-04 18:20] LABS: Folate 6.3 ng/mL (> or = 4.0); Vitamin B12 559 pg/mL (200-900)
--- OUTSIDE RECORDS SUMMARY | 2025-10-04 23:24 | XMS_ITS | Encounter Summary ---
Author Organization [employer] Address [address] [place] [address] 7 [place] [address] Care Team Providers Care Breaker Unit Assembler Name Role Phone Deborah Bey MD Primary Care Pro vider Reason for Referral * Imaging (STAT) - Authorized Specialty Diagnoses / Procedures Referred By Contac t Referred To Contact Radiology Diagnoses Liver mass Procedures MR Abdomen w/ and w/o Contrast Deborah Bey MD [address] [place] [phone] Phone: tel: fax: [facility] Referral ID Status Reason Start Date Expiration Date V isits Requested Visits Authorized [id number] Authorized 10/03/2025 10/03/2026 1 1 Encounter Details Date Type Department Care Team (Late st Contact Info) Description 10/02/2025 Orders Only [facility] [address] [place] [address] [phone] Deborah Bey MD [address] [place], [place] [phone] Liver mass (Primary Dx) Social History Tobacco Use Types Packs/Day Years [...] Description 10/05/2025 1:30 PM EST Office Visit [facility] [address] [place] [address] Li Herman, ISAAC [address] [place] [address] 11/02/2025 1:00 PM EST Immunization [facility] [address] [place] [address] Scheduled Orders Name Type Priority Associated Diagnoses Orde r Schedule MR Abdomen w/ and w/o Contrast Imaging STAT Liver mass Expected: 10/03/2025, Expires: 10/03/2026 documented as of this encounter Goals Goal Patient Goal Type Associated Problems Recent Progress Patient-Stated? Author Help patients manage their type 2 diabetes Care Plan Help patients manage their type 2 diabetes No Deborah Bey MD Weekly blood pressure task Care Plan Weekly blood pressure task No Deborah eBy MD Help patients manage their type 2 [...] Care Plan Weekly blood pressure task No [place] Weekly blood pressure task Care Plan Weekly blood pressure task No [place], Marcia Patient has chronic kidney disease Care Plan Patient has chronic kidney disease No [place], Marcia Patient has chronic kidney disease Care Plan Patient has chronic kidney disease No [place], Marcia Weekly blood pressure task Care Plan Weekly blood pressure task No Vazquezortiz, Providencia Weekly blood pressure task Care Plan Weekly blood pressure task No Vazquezortiz, Providencia Patient has chronic kidney disease Care Plan Patient has chronic kidney disease No Vazquezortiz, Providencia Patient has chronic kidney disease Care Plan Patient has chronic kidney disease No Vazquezortiz Providencia Weekly blood pressure task Care Plan Weekly blood pressure task No Deborah Bey MD Weekly blood pressure task Care Plan Weekly blood pressure task No Deborah Bey MD Patient has chronic kidney disease Care Plan Patient has chronic kidney disease No Deborah Bey MD Patient has chronic kidney disease Care Plan Patient has chronic kidney disease No Deborah Bey MD Weekly blood pressure task Care Plan Weekly blood pressure task No Marito Preston Weekly blood pressure task Care Plan Weekly blood pressure task No Marito Preston Patient has chronic kidney disease Care Plan Patient has chronic kidney disease No Marito Preston Patient has chronic kidney disease Care Plan Patient has chronic kidney disease No Marito Preston Weekly blood pressure task Care Plan Weekly blood pressure task No Deborah Bey MD Weekly blood pressure task Care Plan Weekly blood pressure task No Deborah Bey MD Patient has chronic kidney disease Care Plan Patient has chronic kidney disease No Deborah Bey MD Patient has chronic kidney disease Care Plan Patient has chronic kidney disease No Deborah Bey MD Weekly blood pressure task Care Plan Weekly blood pressure task No Sundar Yang MA Weekly blood pressure task Care Plan Weekly blood pressure task No YangIsabellauyomy [place] Patient has chronic kidney disease Care Plan Patient has chronic kidney disease No Sundar Yang [place] Patient has chronic kidney disease Care Plan Patient has chronic kidney disease No Sundar Yang MA documented as of this encounter Visit Diagnoses Diagnosis Liver mass- Primary Unspecified disorder of liver documented in this encounter Additional Health Concerns [...] kidney disease 09/29/2025 Weekly blood pressure task 10/02/2025 Weekly blood pressure task 10/02/2025 Patient has chronic kidney disease 10/02/2025 Patient has chronic kidney disease 10/02/2025 Weekly blood pressure task 10/02/2025 Weekly blood pressure task 10/02/2025 Patient has chronic kidney disease 10/02/2025 Patient has chronic kidney disease 10/02/2025 Weekly blood pressure task 10/02/2025 Weekly blood pressure task 10/02/2025 Patient has chronic kidney disease 10/02/2025 Patient has chronic kidney disease 10/02/2025 Weekly blood pressure task 10/02/2025 Weekly blood pressure task 10/02/2025 Patient has chronic kidney disease 10/02/2025 Patient has chronic kidney disease 10/02/2025 Assessment Noted Time PHQ-9 Depression Total Score: 0 03/08/20 9:22 AM EDT documented as of this encounter Care Teams Breaker Unit Assembler Relationship Specialty Start Date End Date Deborah Bey MD [address] [place] [phone] PCP - General Internal Medicine 03/09/25 documented as of this encounter
--- OUTSIDE RECORDS SUMMARY | 2025-10-04 23:24 | XMS_ITS | Encounter Summary ---
Author Organization [employer] Address [address] [place] [address] Care Team Providers Care Group Director Experience Name Role Phone Deborah Bey MD Primary Care Pro vider Encounter Details Date Type Department Care Team (Late st Contact Info) Description 10/04/2025 Orders Only GENERIC EXTERNAL DATA DEPARTMENT Provider, Generic External Data Social History Tobacco Use Types Packs/Day Years [...] Description 10/05/2025 1:30 PM EST Office Visit [facility] [address] [place] [address] Li Herman, OD [address] [place] [address] 11/02/2025 1:00 PM EST Immunization [facility] [address] [place] [address] documented as of this encounter Goals Goal [...] Care Plan Weekly blood pressure task No Marcia Fierro Weekly blood pressure task Care Plan Weekly blood pressure task No Marcia Fierro Patient has chronic kidney disease Care Plan Patient has chronic kidney disease No Marcia Fierro Patient has chronic kidney disease Care Plan Patient has chronic kidney disease No Sri Marcia Weekly blood pressure task Care Plan Weekly blood pressure task No Varoryquefoxrtiz, Providencia Weekly blood pressure task Care Plan Weekly blood pressure task No Vazquezortiz, Providencia Patient has chronic kidney disease Care Plan Patient has chronic kidney disease No Vazquezortiz, Providencia Patient has chronic kidney disease Care Plan Patient has chronic kidney disease No Bobby Providencia Weekly blood pressure task Care Plan [...] blood pressure task No Sundar Yang [place] Patient has chronic kidney disease Care Plan Patient has chronic kidney disease No Sundar Yang [place] Patient has chronic kidney disease Care Plan Patient has chronic kidney disease No Sundar Yang MA documented as of this encounter Procedures Procedure Name Priority Date/Time Associated Diagnosis Comments VITAMIN B12/FOLATE, SERUM PANEL Routine 10/04/2025 3:05 PM EST LIPASE Routine 10/04/2025 3:05 PM EST documented in this encounter Results * Vitamin B12 (Cobalamin) and Folate Panel, Serum (10/04/2025 3:05 PM EST) Vitamin B12 559 200 - 900 pg/mL [facility] Comment:NORMAL 200-900 PG/ML INDETERMINATE 160-199 PG/ML DEFICIENT < 160 PG/ML Folate 6.3 > or = 4.0 ng/mL [facility] Comment:Reference Values:> o r = 4.0 ng/mL< 4.0 ng/mL suggests folate deficiency Methotrexate, aminopterin and folinic acid(leucovorin) are chemotherapeutic agents whose molecularstructures are similar to folate; therefore, the Architectfolate assay cannot be used for patients using these drugs. 10/04/2025 3:05 PM EST 10/04/2025 3:05 PM EST Generic External Data Provider LAB BLOOD ORDERAB LES Final Result Performing Organization Address [facility] Co de Phone Number [facility] [address] [place] [phone] * Lipase (10/04/2025 3:05 PM EST) Pathologist [facility] Lipase 30 8 - 78 U/L [facility] 10/04/2025 3:05 PM EST 10/04/2025 3:05 PM EST [employer] External Data Provider LAB BLOOD ORDERAB LES Final Result Performing Organization Address [facility] Co de Phone Number [facility] [address] [place] [address] [phone] documented in this encounter Visit Diagnoses Not on filedocumented in this encounter Additional Health Concerns Active [...] documented as of this encounter Care Teams Group Director Experience Relationship Specialty Start Date End Date Deborah Bey MD [address] [place] [phone] PCP - General Internal Medicine 03/09/25 documented as of this encounter
--- OUTSIDE RECORDS SUMMARY | 2025-10-04 23:24 | XMS_ITS | Clinical Summary ---
Author Organization [employer] Address [address] [facility] 7t [place] [address] Care Team Providers Care Screen Printing Equipment Setter Name Role Phone Deborah Bey MD Primary Care Pro vider Allergies No known active allergies Medications acetaminophen (Tylenol) 500 MG tablet Take by mouth. Activ e lidocaine (Lidoderm) 5 % patch Apply 1 patch topically Once per day. Remove & discard patch within 12 hours or as directed by . 30 patch 2 5 Active cholecalcifero l (Vitamin D-3) 25 MCG (1000 UT) tablet Take 1 tablet (25 mcg) by mouth Once per day. 90 tablet 1 5 026 Active Diclofenac Sodium 1 % gel APPLY 1 APPLICATION TOPICALLY IF NEEDED EACH DAY (BACK PAIN). 100 g 1 5 Active lisinopril 10 MG tablet Take 1 tablet (10 mg) by mouth Once per day. 90 tablet 1 5 Active benzonatate (Tessalon) 200 MG capsule Take 1 capsule (200 mg) by mouth if needed in the morning, at noon, and at bedtime for cough for up to 7 days. Do not crush or chew. 20 capsule 5 025 Active Tirzepatide (Mounjaro) 2.5 MG/0.5ML solution auto-injectorI ndications:Typ e 2 diabetes mellitus without complication, without long-term current use of insulin (HCC),Morbid obesity (CMS/HCC) (HCC) Inject 2.5 mg under the skin 1 (one) time per week. Increase dose monthly 2 mL 5 026 Active buPROPion SR (Wellbutrin SR) 150 MG 12 hr tablet Take 1 tablet (150 mg) by mouth 2 times daily. Do not crush, chew, or split. 60 tablet 2 5 025 Discontinu ed(Other) zoster vaccine-recomb inant adjuvanted (Shingrix) 50 MCG/0.5ML vaccine Inject 0.5 mL (50 mcg) into the muscle 1 (one) time for 1 dose. Please start series 0.5 mL 5 025 Active Problems Problem Noted Date Diagnosed Date Type 2 diabetes mellitus wit hout complication, without long-term current use of insulin 09/28/2025 Dry cough 09/28/2025 Transaminitis 05/04/2025 Health care maintenance 03/09/2025 Morbid obesity (CMS/HCC) 03/09/2025 Closed stable burst fracture of second lumbar vertebra with routine healing 03/09/2025 Liver lesion 03/09/2025 Closed fracture of coccyx, sequela 03/08/2025 Hypertensive disorder 07/04/2024 Encounters Date Type Department Care Team Description 10/04/2025 Orders Only GENERIC EXTERNAL DATA DEPARTMENT Provider, Generic External Data 10/02/2025 Telephone [facility] [address] [place] [phone] Deborah Bey MD MRI F/U Santamaria 10/02/2025 Orders Only [facility] [address] [place] [address] Deborah Bey MD Liver mass (Primary Dx) 10/02/2025 Telephone [facility] [address] [place] [address] [phone] Deborah Bey MD imaging order needed 10/02/2025 Orders Only [address] [phone] Deborah Bey MD Liver lesion (Primary Dx) 09/29/2025 Telephone [facility] [address] [place], [place] [phone] Deborah Bey MD DX PA order 09/28/2025 10:15 AM EST Office Visit [address] [address] Deborah Bey MD Type 2 diabetes mellitus without complication, without long-term current use of insulin (HCC) (Primary Dx); Morbid obesity (CMS/HCC) (HCC); Encounter for immunization; Liver mass; Primary hypertension; Liver lesion; Transaminitis; Health care maintenance; Closed stable burst fracture of second lumbar vertebra with routine healing; Dry cough 09/28/2025 Telephone [facility] [address] [place] [phone] Deborah Bey MD Prior Auth Prescription 09/28/2025 Travel 09/27/2025 Population Health Risk Score [facility] () Department [address] [place] [phone] Provider, Population Health Generic 09/27/[address] [address] Deborah Bey MD chart prep 09/25/2025 Results Follow-Up [address] [address] Deborah Bey MD Comprehensive Metabolic Panel, Hemoglobin A1c 09/19/2025 Patient Outreach [address] [address] Deborah Bey MD Pre-visit Planning (SDOH screening was completed on 03/01/2025) 07/20/2025 Refill [facility] [address] [place] [phone] Farida Saavedra MD 07/07/[address] [address] Deborah Bey MD dec recall from Last 3 Months Immunizations Immunization Administration Dates Next Due Hep B, adult 06/02/2025,05/04/2025 Influenza injectable quadrivalent preservative f ree 09/07/2020 Influenza, Unspecified 07/20/2013 Influenza, seasonal, injectable, preservative fr ee 09/28/2025 Pfizer Covid-19 Vaccine 12+ 09/28/2025 SARS-CoV-2, Unspecified 03/09/2021,02/09/2021 Tdap 03/08/2025 Family History [...] Mass Index 48.82 09/28/2025 10:22 AM EST Plan of Treatment Upcoming Encounters Date Type Department Care Team (Late st Contact Info) Description 10/05/2025 1:30 PM EST Office Visit [facility] [address] [place], [place] [phone] Li Herman, OD [address] [place], [place] [phone] 11/02/2025 1:00 PM EST Immunization [facility] [address] [place] [address] Health Maintenance Due Date Last Done Comments CT Colonography 1975 Colonoscopy 1975 Colorectal Cancer Screening 1975 FIT DNA/Cologuard 1975 FIT 1975 FOBT 1975 Sigmoidoscopy 1975 Diabetes: Foot Exam 1985 Eye Exam 1985 Family Planning (PISQ) 1990 Hepatitis A Vaccines (1 of 2 - Risk 2-dose series) 1994 Pneumococcal Vaccine: 50+ Years (1 of 2 - PCV) 1994 RSV Patients and Patients Aged 60 years or older (1 - Risk 50-74 years 1-dose series) 2025 Zoster Vaccines (1 of 2) 2025 Hepatitis B Vaccines (3 of 3 - 19+ 3-dose series) 11/04/2025 06/02/2025, 05/04/2025 SDOH Screening 03/01/2026 03/01/2025 Alcohol/Substance Use Screening 03/08/2026 03/08/2025 Depression Screening 03/08/2026 03/08/2025, 03/08/2025 Disability Screening 03/08/2026 03/08/2025 Diabetes: Hemoglobin A1C 03/26/2026 025, 05/03/2025 Diabetes: Urine Protein Screening 05/03/2026 05/03/2025 Lipid Panel 05/03/2026 05/03/2025, 09/21/2020 Tobacco Screening 09/28/2026 09/28/2025 DTaP/Tdap/Td Vaccines (2 - T d or Tdap) 03/08/2035 03/08/2025 HIV Screening Completed 05/03/2025, 09/21/2020 Hepatitis C Screening Completed 05/03/2025 COVID-19 Vaccine Completed 09/28/2025, 03/09/2021, 02/09/2021 Influenza Vaccine Completed 09/28/2025, 09/07/2020, 07/20/2013 HIB Vaccines Aged Out No longer eligi [...] on patient's age to complete this topic Goals Goal Patient Goal Type Associated Problems [...] Care Plan Weekly blood pressure task No [place], Marcia Weekly blood pressure task Care Plan Weekly blood pressure task No Marcia Fierro Patient has chronic kidney disease Care Plan Patient has chronic kidney disease No Marcia Fierro Patient has chronic kidney disease Care Plan Patient has chronic kidney disease No Marcia Fierro Weekly blood pressure task Care Plan Weekly blood pressure task No Vazquezortalfonso Providencia Weekly blood pressure task Care Plan Weekly blood pressure task No Vazquezortiz, Providencia Patient has chronic kidney disease Care Plan Patient has chronic kidney disease No Vazquezortiz, Providencia Patient has chronic kidney disease Care Plan Patient has chronic kidney disease No Vazquezortalfonso Providencia Weekly blood pressure task Care Plan [...] Care Plan Weekly blood pressure task No Yang, [place], [place] Weekly blood pressure task Care Plan Weekly blood pressure task No Yang, [place], [place] Patient has chronic kidney disease Care Plan Patient has chronic kidney disease No Yang, [place], [place] Patient has chronic kidney disease Care Plan Patient has chronic kidney disease No Yang, Louy[place], [place] Procedures Procedure Name Priority Date/Time Associated Diagnosis Comments VITAMIN B12/FOLATE, SERUM PANEL Routine 10/04/2025 3:05 PM EST LIPASE Routine 10/04/2025 3:05 PM EST HEMOGLOBIN A1C Routine 09/25/2025 9:44 AM EST Prediabetes COMPREHENSIVE METABOLIC PANEL Routine 09/25/2025 9:44 AM EST Prediabetes AMB REFERRAL TO SLEEP MEDICINE Routine 07/31/2025 Annual physical exam Loud snoring ALBUMIN, RANDOM URINE W/CREATININE Routine 05/03/2025 8:07 AM EDT Annual physical exam LIPID PANEL, STANDARD Routine 05/03/2025 8:07 AM EDT Annual physical exam HEPATITIS C AB W/REFL TO HCV RNA, QN, PCR Routine 05/03/2025 8:02 AM EDT Annual physical exam HIV 1/2 ANTIGEN/ANTIBODY, FOURTH GENERATION W/RFL Routine 05/03/2025 8:02 AM EDT Annual physical exam from Last 3 Months or Most Recently Relevant to Health Maintenance Results * Vitamin B12 (Cobalamin) and Folate Panel, Serum (10/04/2025 3:05 PM EST) Vitamin B12 559 200 - 900 pg/mL [facility] Comment:NORMAL 200-900 PG/ML INDETERMINATE 160-199 PG/ML DEFICIENT < 160 PG/ML Folate 6.3 > or = 4.0 ng/mL [facility] Comment:Reference Values:> o r = 4.0 ng/mL< 4.0 ng/mL suggests folate deficiency Methotrexate, aminopterin and folinic acid(leucovorin) are chemotherapeutic agents whose molecularstructures are similar to folate; therefore, the Architectfolate assay cannot be used for patients using these drugs. 10/04/2025 3:05 PM EST 10/04/2025 3:05 PM EST us Generic External Data Provider LAB BLOOD ORDERAB LES Final Result Performing Organization Address City/[facility]/ZIP Co de Phone Number [facility] [address] [place] [phone] * Lipase (10/04/2025 3:05 PM EST) Lipase 30 8 - 78 U/L [facility] 10/04/2025 3:05 PM EST 10/04/2025 3:05 PM EST us Generic External Data Provider LAB BLOOD ORDERAB LES Final Result Performing Organization Address [facility] Co de Phone Number [facility] [address] [place] [phone] * (ABNORMAL) Hemoglobin A1c (09/25/2025 9:44 AM EST) Hemoglobin A1c 6.6(H) <6.0 % [facility] Comment:Hemoglobin A1C Refer ence Range Adults: 4.8 - 6.0 % Non diabetic: < 6.0 % Goal: < 7.0 %Additional Action Suggested: > 8.0 %Note: Hemoglobin A1c results are invalid for patients with abnormal amounts of HbF. Blood transfusions may impact the HbA1c concentration in the patient sample. Estimated Average Glucose 143 mg/dL [facility] Comment:eAG = Estimated ave rage glucose which is %A1C expressed asaverage glucose, using the formula of the E8E-IcvmuvhKxzqtiu Glucose study (ADAG), Diabetes Care, Vol.31,#8,May. 2007 Blood Venous blood specimen / Unknown 09/25/2025 9:44 AM EST 09/25/2025 11:05 AM EST us Deborah Conley MD LAB BLOOD ORDERAB LES Final Result Performing Organization Address City/[facility]/ZIP Co de Phone Number [facility] [address] [place] [phone] * (ABNORMAL) Comprehensive Metabolic Panel (09/25/2025 9:44 AM EST) Sodium 137 135 - 145 mmol/L [facility] Potassium 4.3 3.3 - 5.1 mmol/L [facility] Chloride 107 96 - 108 mmol/L [facility] Carbon Dioxide 24 22 - 29 mmol/L [facility] Anion Gap 10(L) 12 - 20 [facility] Urea Nitrogen (BUN) 20(H) 9 - 16 mg/dL [facility] Creatinine, Serum 1.13 0.5 - 1.4 mg/dL [facility] Estimated Glomerular Filt Rate >60 [facility] Comment:Chronic Kidney Disea se: Estimated GFR < 60 mL/min/1.05q2Vjlzii Kidney Disease: Estimated GFR < 15 mL/min/1.73m2 Glucose 148(H) 60 - 115 mg/dL [facility] Calcium 9.2 8.4 - 10.2 mg/dL [facility] Bilirubin, Total 0.4 0.0 - 1.0 mg/dL [facility] Aspartate Amino Transferase 41(H) 5 - 37 U/L [facility] Alanine Aminotransferase 78(H) 0 - 40 U/L [facility] Total Protein 7.9 6.5 - 8.0 g/dL [facility] Albumin Level 4.4 3.5 - 5.0 g/dL [facility] Alkaline Phosphatase 68 39 - 117 U/L [facility] Blood Venous blood specimen / Unknown 09/25/2025 9:44 AM EST 09/25/2025 11:37 AM EST us Deborah Conley MD LAB BLOOD ORDERAB LES Final Result [facility] [address] [place] [phone] * Referral to Sleep Medicine (07/31/2025) us Deborah Conley MD OUTPATIENT REFERR AL ORDERABLES Final Result * Albumin, Random Urine W/Creatinine (05/03/2025 8:07 AM EDT) Creatinine, Urine 220.59 mg/dL [facility] Microalbumin Urine 36.0 mg/L [facility] Microalbum Creatinine Ratio Ur 16.3 <30 ug/mg cr [facility] Comment:Albumin/Creatinine R atio Reference Ranges: Normal: < 30 ug/mg creatinine Microalbuminuria: 30 - 300 ug/mg creatinineClinical Albuminuria: > 300 ug/mg creatinine Urine (Urine, Random) 05/03/2025 8:07 AM EDT 05/03/2025 12:45 PM EDT us Deborah Conley MD LAB URINE ORDERAB LES Final Result [facility] [address] [place] [phone] * (ABNORMAL) Lipid Panel, Standard (05/03/2025 8:07 AM EDT) Triglycerides 87 <150 mg/dL [facility] Comment:Desirable Triglyceri de: less than 150 mg/dLBorderline High Triglyceride 150-199 mg/dLHigh Triglyceride: 200-499 mg/dLVery High Triglyceride: greater than or equal to 5OO mg/dL Cholesterol 179 <200 mg/dL [facility] Comment:Desirable Cholestero l: less than 200 mg/dLBorderline High Cholesterol: 200-239 mg/dLHigh Cholesterol: greater than 239 mg/dL LDL Cholesterol Calculated 106(H) <100 mg/dL [facility] Comment:Desirable LDL: less than 100 mg/dLNear Optimal/Above Optimal LDL: 110- 129 mg/dLBorderline High LDL: 130-159 mg/dLHigh LDL: 160-189 mg/dLVery High LDL: greater than or equal to 190 mg/dL HDL Cholesterol 56 >40 mg/dL [facility] Comment:Desirable HDL: great er than 40 mg/dL Note: This HDL assay may give artificially low results in patients with liver disease. Blood Venous blood specimen / Unknown 05/03/2025 8:07 AM EDT 05/03/2025 11:53 AM EDT Deborah Conley MD LAB BLOOD ORDERAB LES Final Result Performing Organization Address [facility]/ZIP Co de Phone Number [facility] [address] [place] [phone] * Hepatitis C Antibody with Reflex to HCV, RNA, Quantitative, Real-Time PCR (05/03/2025 8:02 AM EDT) Hepatitis C Antibody Nonreactive Nonreactive [facility] Comment:Antibodies to HCV no t detected; does not exclude early acuteHCV infection. Blood Venous blood specimen / Unknown 05/03/2025 8:02 AM EDT 05/03/2025 11:53 AM EDT Deborah Conley MD LAB BLOOD ORDERAB LES Final Result Performing Organization Address [facility] Co de Phone Number [facility] [address] [place] [phone] * HIV-1/2 Antigen and Antibodies, Fourth Generation, with Reflexes (05/03/2025 8:02 AM EDT) HIV AB/AG Nonreactive Nonreactive [facility] Comment:HIV-1 p24 Ag and/or HIV-1/HIV-2 Ab not detected.A test result that is nonreactive does not exclude thepossibility of exposure to or infection with HIV-1 and/orHIV-2. Nonreactive results in this assay for individualswith prior exposure to HIV-1 and/or HIV-2 may be due toantigen and antibody levels that are below the limit ofdetection of this assay.The Pick[employer]ify HIV Ag/Ab Combo assay result andsupplemental assay results should be interpreted inconjunction with the patient's clinical presentation,history and other laboratory results. If the results areinconsistent with clinical evidence, additional testing issuggested to confirm the result. Blood Venous blood specimen / Unknown 05/03/2025 8:02 AM EDT 05/03/2025 11:53 AM EDT Deborah Conley MD LAB BLOOD ORDERAB LES Final Result [facility] [address] [place] [phone] from Last 3 Months or Most Recently Relevant to Health Maintenance Additional Health Concerns Active Problems Noted Date [...] 10/02/2025 Patient has chronic kidney disease 10/02/2025 Insurance C3 Care Teams Screen Printing Equipment Setter Relationship Specialty Start Date End Date Deborah Bey MD [address] [place] [phone] PCP - General Internal Medicine 03/09/25
--- OUTSIDE RECORDS SUMMARY | 2025-10-04 23:24 | XMS_ITS | Encounter Summary ---
Author Organization [employer] Address [address] [facility] 7 [place] [address] Care Team Providers Care Family Engagement Specialist Name Role Phone Deborah Bey MD Primary Care Pro vider Reason for Visit * Reason Onset Date Comments MRI F/U Santamaria 10/02/2025 Encounter Details Date Type Department Care Team (Late st Contact Info) Description 10/02/2025 Telephone [facility] [address] [place] [address] Deborah Bey MD [address] [place] [address] MRI F/U Santamaria Social History Tobacco Use Types Packs/Day Years [...] Telephone Encounter - Ines Barrios RN - 10/03/2025 10:04 AM EST Return call placed to the radiology department at [facility] to check on the status of the newly sent STAT imaging order for MRI MRCP W/O CONTRAST sent on 10/02/2025. Per [facility], based on the ptfindings of the US Abdomen Complete (scanned into pt chart under media on 09/28/2025) the pt needs to have an Abdominal MRI ordered with and without contrast based on radiologists recommendations. Will route to PCP for FYI to place new order. Per [facility] the pt is currently rescheduled to have thisdone on 10/09/2025. * Telephone Encounter - Sundar Yang MA - 10/02/2025 4:17 PM EST T/C to [facility] [phone] spoke to Nedra to verify that pt kept MRI appointment. Pt did showfor MRI, Nedra stated report should be done by Thursday10/04/25. documented in this encounter Plan of Treatment Upcoming Encounters Date Type Department Care Team (Late st Contact Info) Description 10/05/2025 1:30 PM EST Office Visit [facility] [address] [place] [address] Li Herman, OD [address] [place] [address] 11/02/2025 1:00 PM EST Immunization [facility] [address] [place], [place] [phone] documented as of this encounter Goals Goal [...] Care Plan Weekly blood pressure task No WillardMarcia maddox Weekly blood pressure task Care Plan Weekly blood pressure task No Willard, Marcia Patient has chronic kidney disease Care Plan Patient has chronic kidney disease No Willard, Marcia Patient has chronic kidney disease Care Plan Patient has chronic kidney disease No Willard, Marcia Weekly blood pressure task Care Plan Weekly blood pressure task No Vazquezortiz, Providencia Weekly blood pressure task Care Plan Weekly blood pressure task No Vazquezortiz, Providencia Patient has chronic kidney disease Care Plan Patient has chronic kidney disease No Vazquezortiz, Providencia Patient has chronic kidney disease Care Plan Patient has chronic kidney disease No Vazquezortiz, Providencia Weekly blood pressure task [...] Plan Patient has chronic kidney disease No YangRonaldo annomy [place] Patient has chronic kidney disease Care [...] documented as of this encounter Care Teams Family Engagement Specialist Relationship Specialty Start Date End Date Deborah Bey MD [address] [place] [phone] PCP - General Internal Medicine 03/09/25 documented as of this encounter
--- OUTSIDE RECORDS SUMMARY | 2025-10-04 23:25 | XMS_ITS | Encounter Summary ---
Author Organization [facility] Address [address] [place] [address] Care Team Providers Care Wooden Tank Erector Name Role Phone Selma Hong DO Primary Care Pro vider Encounter Details Date Type Department Care Team (Late st Contact Info) Description 03/04/2025 Lab Requisition [facility] - Main Lab [address] [facility] [place] [address] Marito Morales MD [address] [place] [address], [phone] Essential (primary) hypertension Social History Tobacco Use Types Packs/Day Years Used Date Smoking Tobacco: Every Day Cigarettes Alcohol Use Standard Drinks/Week Comments Not Asked 0 (1 standard drink = 0.6 oz pur e alcohol) Sex and Gender Information Value Date Recorded Sex Assigned at Not on file Legal Sex Male 1:35 PM EST Gender Identity Not on file Sexual Orientation Not on file documented as of this encounter Plan of Treatment Not on file documented as of this encounter Visit Diagnoses Diagnosis Essential (primary) hypertension Unspecified essential hypertension documented in this encounter Care Teams Wooden Tank Erector Relationship Specialty Start Date End Date Selma Hong DO PCP - General Internal Medicine 07/18/13 documented as of this encounter
--- OUTSIDE RECORDS SUMMARY | 2025-10-04 23:25 | XMS_ITS | Encounter Summary ---
Author Organization [employer] Address [address] [place] [address] 7[address] [place] [address] Care Team Providers Care Wool Fleece Grader Name Role Phone Deborah Bey MD Primary Care Pro vider Reason for Referral * Imaging (STAT) - Authorized Specialty Diagnoses / Procedures Referred By Contac t Referred To Contact Radiology Diagnoses Liver lesion Procedures MRI MRCP WO CONTRAST Deborah Bey MD [address] [place] [address] Phone: tel: fax: [facility] Referral ID Status Reason Start Date Expiration Date V isits Requested Visits Authorized [id number] Authorized 10/02/2025 10/02/2026 1 1 Encounter Details Date Type Department Care Team (Late st Contact Info) Description 10/02/2025 Orders Only [facility] [address] [place] [address] [phone] Deborah Bey MD [address] [place], [place] [phone] Liver lesion (Primary Dx) Social History Tobacco Use Types [...] Description 10/05/2025 1:30 PM EST Office Visit [facility] [address] [place], [place] [phone] Li Herman, ISAAC [address] [place] [address] 11/02/2025 1:00 PM EST Immunization [facility] [address] [place] [address] Scheduled Orders Name Type Priority Associated Diagnoses Orde r Schedule MRI MRCP WO CONTRAST Imaging STAT Liver lesion Expected: 10/02/2025, Expires: 10/02/2026 documented as of this encounter Goals Goal [...] Care Plan Weekly blood pressure task No [place], Marcia Weekly blood pressure task Care Plan Weekly blood pressure task No [place], Marcia Patient has chronic kidney disease Care Plan Patient has chronic kidney disease No [place], Marcia Patient has chronic kidney disease Care Plan Patient has chronic kidney disease No [place], Marcia Weekly blood pressure task Care Plan [...] of this encounter Visit Diagnoses Diagnosis Liver lesion- Primary Other specified disorders of liver documented in this encounter Additional [...] documented as of this encounter Care Teams Wool Fleece Grader Relationship Specialty Start Date End Date Deborah Bey MD [address] [place] [phone] PCP - General Internal Medicine 03/09/25 documented as of this encounter
--- OUTSIDE RECORDS SUMMARY | 2025-10-04 23:25 | XMS_ITS | Encounter Summary ---
Author Organization [facility] Address [address] [place] [address] Care Team Providers Care Machine Sewer Name Role Phone CliffSteffanie Selma Primary Care Pro vider Encounter Details Date Type Department Care Team (Late st Contact Info) Description 02/24/2025 Lab Requisition [facility] - Main Lab [address] [place] [address] Marito Morales MD [address] [place] [address], [address] Essential (primary) hypertension Social History Tobacco Use [...] on file documented as of this encounter Procedures Procedure Name Priority Date/Time Associated Diagnosis Comments COMPLETE BLOOD COUNT Routine 02/27/2025 7:08 AM EDT Essential (primary) hypertension BASIC METABOLIC PANEL Routine 02/27/2025 7:08 AM EDT Essential (primary) hypertension documented in this encounter Results * Basic metabolic panel (02/27/2025 7:08 AM EDT) Sodium 136 133 - 145 mmol/L LAB CHEMISTRY METHOD 02/27/2025 12:46 PM [facility] Potassium 4.8 3.5 - 5.5 mmol/L LAB CHEMISTRY METHOD 02/27/2025 12:46 PM [facility] Chloride 101 96 - 110 mmol/L LAB CHEMISTRY METHOD 02/27/2025 12:46 PM [facility] CO2 28 21 - 32 mmol/L LAB CHEMISTRY METHOD 02/27/2025 12:46 PM [facility] Anion Gap 7 3 - 11 LAB CHEMISTRY METHOD 02/27/2025 12:46 PM [facility] Glucose 90 70 - 100 mg/dL LAB CHEMISTRY METHOD 02/27/2025 12:46 PM [facility] BUN 24 5 - 25 mg/dL LAB CHEMISTRY METHOD 02/27/2025 12:46 PM [facility] Creatinine 1.08 0.70 - 1.30 mg/dL LAB CHEMISTRY METHOD 02/27/2025 12:46 PM [facility] eGFR 84 >=60 mL/min/1. 73m2 LAB CHEMISTRY METHOD 02/27/2025 12:46 PM [facility] Comment:Calculation based on the Chronic Kidney Disease Epidemiology Collaboration (CKD-EPI) equation refit without adjustment for race. BUN/Creatinine Ratio 22.2 LAB CHEMISTRY METHOD 02/27/2025 12:46 PM [facility] Calcium 9.4 8.5 - 10.5 mg/dL LAB CHEMISTRY METHOD 02/27/2025 12:46 PM [facility] Blood Venous blood specimen / Unknown Venipuncture / Unknown 02/27/2025 7:08 AM EDT 02/27/2025 11:18 AM EDT us Marito Morales MD LAB BLOOD ORDERABLES Final Resul t [facility] [address] [place] [address], * (ABNORMAL) Complete blood count (02/27/2025 7:08 AM EDT) [facility] WBC 7.4 4.8 - 10.8 K/mcL LAB HEMETOLOGY METHOD 02/27/2025 12:44 PM [facility] RBC 5.00 4.50 - 5.50 M/mcL LAB HEMETOLOGY METHOD [facility] Hemoglobin 13.1(L) 13.5 - 17.5 g/dL LAB HEMETOLOGY METHOD 02/27/2025 12:44 PM [facility] Hematocrit 40.4(L) 42.0 - 54.0 % LAB HEMETOLOGY METHOD 02/27/2025 12:44 PM [facility] MCV 81.6 79.0 - 98.0 FL LAB HEMETOLOGY METHOD 02/27/2025 12:44 PM [facility] MCH 26.5(L) 27.0 - 32.0 pcg LAB HEMETOLOGY METHOD 02/27/2025 12:44 PM [facility] MCHC 32.4 32.0 - 37.0 g/dL LAB HEMETOLOGY METHOD 02/27/2025 12:44 PM [facility] RDW 13.0 11.0 - 15.0 % LAB HEMETOLOGY METHOD 02/27/2025 12:44 PM [facility] Platelets 375 130 - 400 K/mcL LAB HEMETOLOGY METHOD 02/27/2025 12:44 PM [facility] MPV 9.9 7.0 - 11.0 FL LAB HEMETOLOGY METHOD [facility] NRBC 0.0 <1.0 % LAB HEMETOLOGY METHOD 02/27/2025 12:44 PM EDT [facility] NRBC Absolute 0.00 <0.10 K/mcL LAB HEMETOLOGY METHOD 02/27/2025 12:44 PM EDT [facility] Blood Venous blood specimen / Unknown Venipuncture / Unknown 02/27/2025 7:08 AM EDT 02/27/2025 11:18 AM EDT us Marito Morales MD LAB BLOOD ORDERABLES Final Resul t [facility] [address] [place] [address], documented in this encounter Visit Diagnoses Diagnosis Essential (primary) hypertension Unspecified essential hypertension documented in this encounter Care Teams Machine Sewer Relationship Specialty Start Date End Date Selma Hong DO PCP - General Internal Medicine 07/18/13 documented as of this encounter
--- OUTSIDE RECORDS SUMMARY | 2025-10-04 23:25 | XMS_ITS | Encounter Summary ---
Author Organization [employer] Address [address] [facility] 7 [place] [address] Care Team Providers Care Construction Area Manager Name Role Phone Deborah Bey MD Primary Care Pro vider Reason for Visit * Reason Onset Date Comments Med Refill 03/16/2025 Encounter Details Date Type Department Care Team (Late st Contact Info) Description 03/16/2025 Telephone [facility] MEDICINE [address] [place] [address] Deborah Bey MD [address] [place] [address] Med Refill Social History Tobacco Use Types [...] Description 10/05/2025 1:30 PM EST Office Visit [facility] OPTOMETRY [address] [place] [address] Li Herman, OD [address] [place] [address] 11/02/2025 1:00 PM EST Immunization [facility] MEDICINE [address] [place], [place] [phone] documented as of this encounter Visit Diagnoses Not on filedocumented in this encounter Additional Health Concerns Assessment Noted Time PHQ-9 Depression Total Score: 0 03/08/20 9:22 AM EDT documented as of this encounter Care Teams Construction Area Manager Relationship Specialty Start Date End Date Deborah Bey MD [address] [place] [address] PCP - General Internal Medicine 03/09/25 documented as of this encounter
--- OUTSIDE RECORDS SUMMARY | 2025-10-04 23:25 | XMS_ITS | Encounter Summary ---
Author Organization [employer] Address 75 [facility] 7 [place] [address] Care Team Providers Care Sow Farm Technician Name Role Phone Deborah Bey MD Primary Care Pro vider Reason for Visit * Reason Onset Date Comments Prior Auth Prescription 09/28/2025 Encounter Details Date Type Department Care Team (Late st Contact Info) Description 09/28/2025 Telephone [facility] MEDICINE [address] [place] [address] Deborah Bye MD [address] [place] [address] Prior Auth Prescription Social History Tobacco Use Types Packs/Day Years [...] encounter Miscellaneous Notes * Telephone Encounter - Kenia Whitaker - 09/28/2025 12:39 PM EST Tc from pt needing an PA for; -Tirzepatide (Mounjaro) 2.5 MG/0.5ML solution auto-injector documented in this encounter Plan of Treatment Upcoming Encounters Date Type Department Care Team (Late st Contact Info) Description 10/05/2025 1:30 PM EST Office Visit [facility] OPTOMETRY [address] [place] [address] Li Herman, OD [address] [place] [address] 11/02/2025 1:00 PM EST Immunization [facility] MEDICINE [address] [place] [address] documented as of this encounter Goals Goal [...] chronic kidney disease No Deborah Bey MD documented as of this encounter Visit Diagnoses Not on filedocumented in this encounter Additional Health Concerns Active Problems Noted Date Diagnosed Date Help patients manage their type 2 diabetes 09/28 Weekly blood pressure task 09/28/2025 Help patients manage their type 2 diabetes 09/28 Patient has chronic kidney disease 09/28/2025 Weekly blood pressure task 09/28/2025 Patient has chronic kidney disease 09/28/2025 Assessment Noted Time PHQ-9 Depression Total Score: 0 03/08/20 9:22 AM EDT documented as of this encounter Care Teams Sow Farm Technician Relationship Specialty Start Date End Date Deborah Bey MD [address] [place] [address] PCP - General Internal Medicine 03/09/25 documented as of this encounter
--- OUTSIDE RECORDS SUMMARY | 2025-10-04 23:25 | XMS_ITS | Encounter Summary ---
Author Organization [employer] Address [address] [facility] 7t [place] [address] Care Team Providers Care Room Manager Name Role Phone Deborah Bey MD Primary Care Pro vider Reason for Visit * Reason Onset Date Comments new pt 02/27/2025 Encounter Details Date Type Department Care Team (Late st Contact Info) Description 02/27/2025 Telephone [facility] MEDICINE [address] [place], [place] [phone] Sherif Allen MD [address] [place], [place] [phone] new pt Social History Tobacco Use Types [...] encounter Miscellaneous Notes * Telephone Encounter - Chica Cutler - 02/27/2025 1:27 PM EDT TC from caller requesting NEW PATIENT visit . DX : High blood pressure Fractured mid back 2 fractured coccyx Medical Concern: Insurance name : [facility] Location : Any location Demographic information updated Tc from daughter requesting soonest availability in order for pt to get discharged from [facility] appointment documented in this encounter Plan of Treatment Upcoming Encounters Date Type Department Care Team (Late st Contact Info) Description 10/05/2025 1:30 PM EST Office Visit [facility] OPTOMETRY [address] [place] [address] Li Herman OD [address] [place] [address] 11/02/2025 1:00 PM EST Immunization [facility] MEDICINE [address] [place] [address] documented as of this encounter Visit Diagnoses Not on filedocumented in this encounter Care Teams Room Manager Relationship Specialty Start Date End Date Deborah Bey MD [address] [place] [address] PCP - General Internal Medicine 03/09/25 documented as of this encounter
--- OUTSIDE RECORDS SUMMARY | 2025-10-04 23:25 | XMS_ITS | Data Portability ---
Author Organization [facility], Main Office Address [address] [facility] [place] [address] Care Team Providers Care Radio Interference Supervisor Name Role Phone [facility] OTHER Unavailable Mail Examiner Assessment Encounter Date Assessment Date Assessment LastModified by Organization Details LastModified Time 02/24/2025 02/24/2025 49yo admitted to [facility] on 02/17/2025 for pain managemnt and acute [...] By Organization Details Last Modified Time 02/24/2025 [id number] anticipate discharge soon Not available 02/24/2025 11:26:27 Reason for Referral None Reported. Problems Name Problem SNOMED Code Status Onset Date Resolution Date Notes Provider Name and Address Organization Details Recorded Time Essential hypertensi on 33026971 Active 2024 Digna Knight ierkla [address], [address], [place], [address], MD [facility] 5 07:28:05 Hemangioma of intra-abdo janna structure 509821408 Active 2024 Not Available [facility] 5 12:02:09 Backache 339420231 Active 2024 Not Available [facility] 5 15:50:11 Fracture of second lumbar vertebra 512622944 Active 2024 Not Available [facility] 5 12:02:11 Fracture of coccyx 236549444 Active 2024 Not Available [facility] 5 12:02:59 Fall Active 2024 Not Available [facility] 5 12:03:00 Unsteady when standing 801488205 Active 2024 Not Available [facility] 5 07:41:20 Morbid obesity 002276171 Active 2024 Digna Almanza-K ierkla [address] [facility], [address], [place], [address], MD [facility] 5 07:30:00 Muscle weakness 34297483 Active 2024 Not Available [facility] 5 12:03:02 Closed fracture of second lumbar vertebra 417960803973 08550 Active 2024 Ziggy Garcia MD [address] [facility], [address], [place], [address], MD [facility] 5 11:23:14 CT of abdomen abnormal 347227174040 92868 Active 2024 Ziggy Garcia MD [address] [facility], [address], [place], [address], MD [facility] 5 11:29:53 For resuscitat ion 575401571 Active 2024 Ziggy Garcia MD [address] [facility], [address], [place], [address], [facility] [employer] 11:30:09 Problem Notes None recorded. Medical Equipment [...] influenza, unspecified formulation 07/20/2013 completed Matt Garcia [facility] 02/22/2025 14:01:25 influenza, unspecified formulation 09/07/2020 completed Matt Garcia [facility] 02/22/2025 14:01:30 SARS-COV-2 (COVID-19) vaccine, UNSPECIFIED 02/09/2021 completed Matt Garcia [facility] 02/22/2025 14:01:39 SARS-COV-2 (COVID-19) vaccine, UNSPECIFIED 03/09/2021 completed Matt Garcia [facility] 02/22/2025 14:01:44 Past Encounters Encounter ID Performer Location Encounter Start Date Encounter Closed Date Diagnosis/Indication Diagnosis SNOMED-CT Code Diagnosis ICD10 Code Diagnosis IMO Codes Diagnosis Note [id number] [place] [address] 02/18/2025 10:59:10 02/22/2025 12:46:40 Essential hypertension 29879740 I10 86916 CONTINUE LISINOPRIL MONITOR, ADJUST MEDS IF NEEDED Fall from ladder 2778650 8 W11.XXXS [id number] PT EVAL.WALKE R WITH AMBULATION Closed fra cture of second lumbar vertebra 2333836343 9054328 S32.029S 393602237 PTLIDODERM PATCHES X2 TO LOW BACK Q24 HOURSTYLEN OL 1G Q8 HOURS SCHEDULEDO XYCODONE Backache 989733698 M54.9 SAME ABOVE Morbid obesity 527589034 E66.01 554040 LOW CALORIE IN[place]ERD EVAL IS NEEDEDPT Closed fra cture of coccyx 100856829 S32.2XXD 16975556 ABOVE FOR L2 FX. [id number] MAINE LONG, RESILIENT [place] [address] 02/21/2025 10:49:17 02/22/2025 12:55:14 Essential hypertension 44212356 I10 50170 BP slightly above goalcould be dt acute paincontin ue lisinopril 10 mg dailymonit or BP and if elevated continues will adjust meds Fall from ladder 8594773 8 W11.XXXS 387137 continue PT OT Closed fra cture of second lumbar vertebra 2401194951 3066123 S32.029S 424662362 Has not used oxycontinu e lidocaine patcheswil l schedule tylenol 1000 mg tiddc oxy, not usingmonit or pain Hyponatremia 21084091 E8 7.1 91714 slight, Na 130repeat labs mon to trend Acute constipation 74971 9006 K59.00 565083 continue sched bowel regone time dose lactulose nowif no BM ok to use suppositor ymonitor for movement [id number] [place] [address] 02/24/2025 09:29:56 02/28/2025 03:49:52 Essential hypertension 34257267 I10 47761 BP slightly above goal w/ SBP 130scontin ue lisinopril 20 mg dailymonit or BP w/ increasela bs mon Fall from ladder 0790197 8 W11.XXXS 770282 making progressco ntinue PT OTpossible dc next week per pt request Closed fra cture of second lumbar vertebra 6090977349 7677227 S32.029S 292156448 continue lidocaine patchescon t scheduled tylenol 1000 mg tidpain improving, cont to monitor Hyponatremia 21108857 E8 7.1 66940 slight, Na 130repeat labs mon to trend [id number] MD JAKUB [place] [address] [place] [address] 02/24/2025 10:57:54 03/10/2025 11:02:47 Fall from ladder 30932760 W11.XXXS [id number] appears to be doing well with PT; using a walkerappa rently using ladder on his own when he wa attending to equipmentw ill follow-up with [employer] [employer] Closed fra cture of second lumbar vertebra 4212647243 7535188 S32.029S 643345603 as per neurosurg recommenda tions; reviewed with patientwor k related injury Morbid obesity 514727579 E66.01 157774 discussed with patient Closed fra cture of coccyx 532140183 S32.2XXD 13750170 likely chronic from imaging studies Low back pain 756458495 M54.50 017114 sec to fall injury as well as fracturedi scussed use of narcotics (on average 2 pills a day) along with adjunct as needed muscle relaxant/N SAID/Tylen ol/local modalities discussed need to monitor bowel functions on narcotics Essential hypertension 67359433 I10 96406 on lis 10mg daily; may require more controldis cussed possible SILVER given history of snoring as well as habitus; will follow-up with PCP CT of abdo men abnormal 8572351341 3047546 R93.5 614938 hepatic angioma, not clincially significan t For resuscitation 732974 001 Z78.[id number] [place] [address] 02/27/2025 11:25:32 03/01/2025 07:08:25 Essential hypertension 48921512 I10 51593 now at goal w/ increased lisnoprilc ontinue lisinopril 20 mg dailymonit or BP w/ increasela bs pending today Fall from ladder 1302965 8 W11.XXXS 166131 making progressco ntinue PT OTpossible dc next week per pt request Closed fra cture of second lumbar vertebra 4626966627 5508996 S32.029S 606213734 continue lidocaine patchescon t scheduled tylenol 1000 mg tidcont flexerilpa in improving, cont to monitor Hyponatremia 16880664 E8 7.1 62093 slight, Na 130labs pending today Acute constipation 78029 9006 K59.00 985234 continue sched bowel regresolve dregular BM daily now [id number] [place] [address] 02/28/2025 09:14:45 03/01/2025 07:09:07 Essential hypertension 81627260 I10 41070 now at goal w/ increased lisnoprilc ontinue lisinopril 20 mg dailymonit or BP w/ increasef/ up with pcp Fall from ladder 6420243 8 W11.XXXS 662103 completed PT OTdc home with servicesok eds a walker which PT ordered Closed fra cture of second lumbar vertebra 7295141801 8618656 S32.029S 279697229 continue lidocaine patchescon t scheduled tylenol 1000 mg tidcont flexerilf/ up outpt Hyponatremia 66519046 E8 7.1 04174 slight, Na 130f/up with pcp for labs Acute constipation 06540 9006 K59.00 512037 continue sched bowel regresolve dregular BM daily now Health Concerns Section Related Observation LastModified by Organization Detai ls LastModified Time None Recorded Concern Status LastModified by Organization Details LastModified Time None Recorded Advance Directives Directive None Recorded Payers Insurance Date Sequence Insurance Name Policy Number Policy Nolasco Covered Member ID Nolasco Member ID Guarantor Name 02/24/2025 1 [place] [facility] Ericbhakti WelchTheodore [id number] Eric Theodore 02/28/2025 [employer] [id number] [place] [employer] Eric Theodore Notes Date Note Type Note Provider Name and Address Organization Details Recorded Time 02/21/2025 text/html ROS as noted in the [facility] 49 year old male seen for acute [...] feels he still has to go. PMHxmorbid obesityhtn MAINE LONG, RESILIENT TILE INSTALLER-C [address] [facility], [address], [place], [address], [facility] [employer] 02/21/2025 11:06:23 02/24/2025 text/html ROS as noted in the HPI 49 year old male seen for acute [...] He is hoping to dc next week. MINORADHA Coburn [address] [facility], [address], [place], [address], [facility] [employer] [facility] 02/27/2025 11:29:31 02/27/2025 text/html ROS as noted in the [facility] 49 year old male seen for acute [...] tylenol. His BMs are back to normal. RADHA Chiu [address] [facility], [address], [place], [address], [facility] [employer] [facility] 02/27/2025 11:37:21 02/28/2025 text/html ROS as noted in the [facility] 49 year old male seen for discharge [...] with pt for pcp. MINORADHA Coburn [address] [facility], [address], [place], [address], [facility] [employer] 02/28/2025 09:30:01
--- OUTSIDE RECORDS SUMMARY | 2025-10-04 23:25 | XMS_ITS | Encounter Summary ---
Author Organization [email or web address] Address [address] [facility] 7t [place] [address] Care Team Providers Care Sod Farmer Name Role Phone Deborah Bey MD Primary Care Pro vider Encounter Details Date Type Department Care Team (Latest Contact Info) Description 09/25/2025 Results Follow-Up [facility] MEDICINE [address] [place], [place] [phone] Deborah Bey MD [address] [place] [address] Comprehensive Metabolic Panel, Hemoglobin A1c Social History Tobacco Use Types Packs/Day Years [...] as of this encounter Miscellaneous Notes * Result Encounter Note - Deborah Conley MD - 09/25/2025 2:51 PM EST Please call patient to advise to come to already scheduled apt with me on 09/28/2025 to go over abnormal labs Thanks documented in this encounter Plan of Treatment Upcoming Encounters Date Type Department Care Team (Late st Contact Info) Description 10/05/2025 1:30 PM EST Office Visit [facility] OPTOMETRY [address] [place] [address] TarLi cowart, OD [address] [place] [address] 11/02/2025 1:00 PM EST Immunization [facility] MEDICINE [address] [place] [address] documented as of this encounter Visit Diagnoses Not on filedocumented in this encounter Additional Health Concerns Assessment Noted Time PHQ-9 Depression Total Score: 0 03/08/20 25 9:22 AM EDT documented as of this encounter Care Teams Sod Farmer Relationship Specialty Start Date End Date Deborah Bey MD [address] [place] [address] PCP - General Internal Medicine 03/09/25 documented as of this encounter
--- OUTSIDE RECORDS SUMMARY | 2025-10-04 23:25 | XMS_ITS | Encounter Summary ---
Author Organization [employer] Address [address] [facility] 7 [place] [address] Care Team Providers Care Trading Manager Name Role Phone Deborah Bey MD Primary Care Pro vider Reason for Visit * Reason Onset Date Comments imaging order needed 10/02/2025 Encounter Details Date Type Department Care Team (Late st Contact Info) Description 10/02/[address] [facility] MEDICINE [address] [place] [address] Deborah Bey MD [address] [place] [address] imaging order needed Social History Tobacco Use Types Packs/Day Years [...] encounter Miscellaneous Notes * Telephone Encounter - Gretchen Osborne RN - 10/02/2025 11:08 AM EST Telephone call returned to Cheri at [facility] [place] [place]. They do not have the correct MRI order for the pt's MRI today. They need it to say: MRI of the abdomen with and without contrast. Follow up to ultrasound. Current diagnosis code correct. Patient will need to be rescheduled once order sent, [facility] [place] [place] will give the patient the phone number for Centralized Scheduled at [facility]. * Telephone Encounter - Marito Preston - 10/02/2025 10:33 AM EST Tc from Cheri with [facility] MRI Reporting receiving wrong MRI for pt . She Received MRI MRCP . Cheri is needing MRI of Abdomen With and without contrast. Pt is currently there in office and needs new order sent laina . Will only have 30 min before rescheduling Please fax to [phone] documented in this encounter Plan of Treatment Upcoming Encounters Date Type Department Care Team (Late st Contact Info) Description 10/05/2025 1:30 PM EST Office Visit [facility] OPTOMETRY [address] [place] [address] Li Herman, OD [address] [place] [address] 11/02/2025 1:00 PM EST Immunization [facility] MEDICINE [address] [place] [address] documented as of this encounter Goals Goal [...] Care Plan Weekly blood pressure task No Register, Marcia Weekly blood pressure task Care Plan Weekly blood pressure task No Register, Marcia Patient has chronic kidney disease Care Plan Patient has chronic kidney disease No Sri Marcia Patient has chronic kidney disease Care Plan Patient has chronic kidney disease No Register, Marcia Weekly blood pressure task Care Plan [...] Care Plan Weekly blood pressure task No [place], [place] Weekly blood pressure task Care Plan Weekly blood pressure task No Yang [place], [place] Patient has chronic kidney disease Care Plan Patient has chronic kidney disease No Yang [place], [place] Patient has chronic kidney disease Care Plan Patient has chronic kidney disease No [place], [place] documented as of this encounter Visit [...] documented as of this encounter Care Teams Trading Manager Relationship Specialty Start Date End Date Deborah Bey MD [address] [place] [address] PCP - General Internal Medicine 03/09/25 documented as of this encounter
--- OUTSIDE RECORDS SUMMARY | 2025-10-04 23:25 | XMS_ITS | Clinical Summary ---
Author Organization [address] Address [address] [place] [phone] Phone Care Team Providers Care Fitting Room Supervisor Name Role Phone Selma Hong DO Primary Care Pro vider Surgical History Surgery Date Site/Laterality Comments OTHER SURGICAL HISTORY PROCEDURE: [place] ARTHRS WRST EXC&/RPR TRIANG FIBROCART&/JOINT; COMMENT: torn [...] on file Sexual Orientation Not on file Plan of Treatment Health Maintenance Due Date Last Done Comments Colorectal Cancer Screening: Colonoscopy 1975 Hepatitis A Vaccines (1 of 2 - Risk 2-dose series) 1994 Hepatitis B Vaccines (1 of 3 - 19+ 3-dose series) 1994 Pneumococcal Vaccine: 50+ Years (1 of 2 - PCV) 1994 Depression Screening 10/26/2024 Hepatitis C Screening 02/20/2025 Social Influencers of Health Screening 02/20/2025 RSV Immunization Adult Patients (1 - Risk 50-74 years 1-dose series) 2025 Zoster Vaccines (1 of 2) 2025 COVID-19 Vaccine (2024-2 6 season) 2025 03/09/2021, 02/09/2021 Influenza Vaccine (#1) 2025 , 07/20/2013 Cholesterol Screening (Lipid Panel) 09/21/2025 09/21/2020 Hypertension/CHF/CAD Annual BMP Blood Test 02/27/2026 02/27/2025, 02/20/2025 DTaP,Tdap,and Td Vaccines (2 - Td or [...] Procedure Name Priority Date/Time Associated Diagnosis Comments BASIC METABOLIC PANEL Routine 02/27/2025 7:08 AM EDT Essential (primary) hypertension from Last 3 Months or Most Recently Relevant to Health Maintenance Results * Basic metabolic panel (02/27/2025 7:08 AM EDT) Sodium 136 133 - 145 mmol/L LAB CHEMISTRY METHOD 02/27/2025 12:46 PM EDT [facility] Potassium 4.8 3.5 - 5.5 mmol/L LAB CHEMISTRY METHOD 02/27/2025 12:46 PM EDT [facility] Chloride 101 96 - 110 mmol/L LAB CHEMISTRY METHOD 02/27/2025 12:46 PM T [facility] CO2 28 21 - 32 mmol/L LAB CHEMISTRY METHOD 02/27/2025 12:46 PM EDT [facility] Anion Gap 7 3 - 11 LAB CHEMISTRY METHOD 02/27/2025 12:46 PM EDT [facility] Glucose 90 70 - 100 mg/dL LAB CHEMISTRY METHOD 02/27/2025 12:46 PM EDT [facility] BUN 24 5 - 25 mg/dL LAB CHEMISTRY METHOD 02/27/2025 12:46 PM T [facility] Creatinine 1.08 0.70 - 1.30 mg/dL LAB CHEMISTRY METHOD 02/27/2025 12:46 PM EDT [facility] eGFR 84 >=60 mL/min/1. 73m2 LAB CHEMISTRY METHOD 02/27/2025 12:46 PM T [facility] Comment:Calculation based on the Chronic Kidney Disease Epidemiology Collaboration (CKD-EPI) equation refit without adjustment for race. BUN/Creatinine Ratio 22.2 LAB CHEMISTRY METHOD 02/27/2025 12:46 PM EDT [facility] Calcium 9.4 8.5 - 10.5 mg/dL LAB CHEMISTRY METHOD 02/27/2025 12:46 PM [facility] Blood Venous blood specimen / Unknown Venipuncture / Unknown 02/27/2025 7:08 AM EDT 02/27/2025 11:18 AM EDT us Marito Morales MD LAB BLOOD ORDERABLES Final Resul t [facility] [address] [place] [address], from Last 3 Months or Most Recently Relevant to Health Maintenance Insurance [facility] [id number] GENERIC GENERIC Care Teams Fitting Room Supervisor Relationship Specialty Start Date End Date Selma Hogn DO PCP - General Internal Medicine 07/18/13
--- OUTSIDE RECORDS SUMMARY | 2025-10-04 23:25 | XMS_ITS | Encounter Summary ---
Author Organization [facility] Address [address] [place] [address] Care Team Providers Care Certified Health Education Specialist Name Role Phone Selma Hong DO Primary Care Pro vider Encounter Details Date Type Department Care Team (Late st Contact Info) Description 03/04/2025 Lab Requisition [facility] - Main Lab [address] [facility] [place] [address] Marito Morales MD [address] [place] [address], [phone] Essential (primary) hypertension Social History Tobacco Use [...] hypertension documented in this encounter Care Teams Certified Health Education Specialist Relationship Specialty Start Date End Date Selma Hong DO PCP - General Internal Medicine 07/18/13 documented as of this encounter
--- OUTSIDE RECORDS SUMMARY | 2025-10-04 23:25 | XMS_ITS | Encounter Summary ---
Author Organization [facility] Address [address] [place] [address] Care Team Providers Care Director Search Marketing Strategies Name Role Phone CliffSteffanie Selma Primary Care Pro vider Encounter Details Date Type Department Care Team (Late st Contact Info) Description 02/20/2025 Lab Requisition [facility] - Main Lab [address] [place] [address] Marito Morales MD [address] [place] [address], [phone] Essential (primary) hypertension Social History Tobacco [...] Associated Diagnosis Comments COMPLETE BLOOD COUNT Routine 02/20/2025 6:39 AM EDT Essential (primary) hypertension COMPREHENSIVE METABOLIC PANEL Routine 02/20/2025 6:39 AM EDT Essential (primary) hypertension documented in this encounter Results * (ABNORMAL) Comprehensive metabolic panel (02/20/2025 6:39 AM EDT) Sodium 130(L) 133 - 145 mmol/L LAB CHEMISTRY METHOD 02/20/2025 12:54 PM [facility] Potassium 4.9 3.5 - 5.5 mmol/L LAB CHEMISTRY METHOD 02/20/2025 12:54 PM [facility] Chloride 97 96 - 110 mmol/L LAB CHEMISTRY METHOD 02/20/2025 12:54 PM [facility] CO2 24 21 - 32 mmol/L LAB CHEMISTRY METHOD 02/20/2025 12:54 PM [facility] Anion Gap 9 3 - 11 LAB CHEMISTRY METHOD 02/20/2025 12:54 PM [facility] Glucose 111(H) 70 - 100 mg/dL LAB CHEMISTRY METHOD 02/20/2025 12:54 PM [facility] BUN 24 5 - 25 mg/dL LAB CHEMISTRY METHOD 02/20/2025 12:54 PM [facility] Creatinine 1.01 0.70 - 1.30 mg/dL LAB CHEMISTRY METHOD 02/20/2025 12:54 PM [facility] eGFR 91 >=60 mL/min/1. 73m2 LAB CHEMISTRY METHOD 02/20/2025 12:54 PM [facility] Comment:Calculation based on the Chronic Kidney Disease Epidemiology Collaboration (CKD-EPI) equation refit without adjustment for race. BUN/Creatinine Ratio 23.8 LAB CHEMISTRY METHOD 02/20/2025 12:54 PM [facility] Calcium 9.2 8.5 - 10.5 mg/dL LAB CHEMISTRY METHOD 02/20/2025 12:54 PM [facility] AST (SGOT) 32 10 - 42 unit/L LAB CHEMISTRY METHOD 02/20/2025 12:54 PM [facility] ALT (SGPT) 63(H) 10 - 60 unit/L LAB CHEMISTRY METHOD 02/20/2025 12:54 PM [facility] Alkaline Phosphatase 75 42 - 121 unit/L LAB CHEMISTRY METHOD 02/20/2025 12:54 PM T [facility] Total Protein 7.9 6.0 - 8.0 g/dL LAB CHEMISTRY METHOD 02/20/2025 12:54 PM [facility] Albumin 3.8 3.2 - 5.0 g/dL LAB CHEMISTRY METHOD 02/20/2025 12:54 PM [facility] Total Bilirubin 0.7 0.0 - 1.4 mg/dL LAB CHEMISTRY METHOD 02/20/2025 12:54 PM [facility] Blood Venous blood specimen / Unknown Venipuncture / Unknown 02/20/2025 6:39 AM EDT 02/20/2025 10:04 AM EDT us Marito Morales MD LAB BLOOD ORDERABLES Final Resul t [facility] [address] [place] [address], [place] [phone] * (ABNORMAL) Complete blood count (02/20/2025 6:39 AM EDT) WBC 10.9(H) 4.8 - 10.8 K/mcL LAB HEMETOLOGY METHOD 02/20/2025 11:02 AM [facility] RBC 5.50 4.50 - 5.50 M/mcL LAB HEMETOLOGY METHOD 02/20/2025 11:02 AM [facility] Hemoglobin 14.8 13.5 - 17.5 g/dL LAB HEMETOLOGY METHOD 02/20/2025 11:02 AM [facility] Hematocrit 45.9 42.0 - 54.0 % LAB HEMETOLOGY METHOD 02/20/2025 11:02 AM [facility] MCV 82.9 79.0 - 98.0 FL LAB HEMETOLOGY METHOD 02/20/2025 11:02 AM EDT [facility] MCH 26.7(L) 27.0 - 32.0 pcg LAB HEMETOLOGY METHOD 02/20/2025 11:02 AM EDT [facility] MCHC 32.2 32.0 - 37.0 g/dL LAB HEMETOLOGY METHOD 02/20/2025 11:02 AM EDT [facility] RDW 13.2 11.0 - 15.0 % LAB HEMETOLOGY METHOD 02/20/2025 11:02 AM EDT [facility] Platelets 443(H) 130 - 400 K/mcL LAB HEMETOLOGY METHOD 02/20/2025 11:02 AM EDT [facility] MPV 10.1 7.0 - 11.0 FL LAB HEMETOLOGY METHOD 02/20/2025 11:02 AM EDT [facility] NRBC 0.0 <1.0 % LAB HEMETOLOGY METHOD 02/20/2025 11:02 AM EDT [facility] NRBC Absolute 0.00 <0.10 K/mcL LAB HEMETOLOGY METHOD 02/20/2025 11:02 AM EDT [facility] Blood Venous blood specimen / Unknown Venipuncture / Unknown 02/20/2025 6:39 AM EDT 02/20/2025 10:04 AM EDT us Marito Morales MD LAB BLOOD ORDERABLES Final Resul t [facility] [address] [place] [address], documented in this encounter Visit Diagnoses Diagnosis Essential (primary) hypertension Unspecified essential hypertension documented in this encounter Care Teams Director Search Marketing Strategies Relationship Specialty Start Date End Date eSlma Hong DO PCP - General Internal Medicine 07/18/13 documented as of this encounter
--- OUTSIDE RECORDS SUMMARY | 2025-10-04 23:25 | XMS_ITS | Encounter Summary ---
Author Organization [employer] Address [address] [facility] [address] [place] [address] Care Team Providers Care Material Handler Floorperson Name Role Phone Deborah Bey MD Primary Care Pro vider Reason for Visit * Reason Comments Med Refill Encounter Details Date Type Department Care Team (Late st Contact Info) Description 07/20/2025 Refill [facility] [address] [place] [address] Fairda Saavedra MD [address] [place] [address] Social History Tobacco Use Types Packs/Day Years [...] Description 10/05/2025 1:30 PM EST Office Visit [facility] [address] [place] [address] Li Herman, OD [address] [place] [address] 11/02/2025 1:00 PM EST Immunization [facility] [address] [place] [address] documented as of this encounter Visit Diagnoses Not on filedocumented in this encounter Additional Health Concerns Assessment Noted Time PHQ-9 Depression Total Score: 0 03/08/20 9:22 AM EDT documented as of this encounter Care Teams Material Handler Floorperson Relationship Specialty Start Date End Date Deborah Bey MD [address] [place] [address] PCP - General Internal Medicine 03/09/25 documented as of this encounter
--- OUTSIDE RECORDS SUMMARY | 2025-10-04 23:25 | XMS_ITS | Encounter Summary ---
Author Organization [employer] Address [address] [place] [address] 7 [place] [address] Care Team Providers Care Map Maker Name Role Phone Deborah Bey MD Primary Care Pro vider Reason for Visit * Reason Onset Date Comments DX PA order 09/29/2025 Encounter Details Date Type Department Care Team (Late st Contact Info) Description 09/29/2025 Telephone [employer] [facility] [address] [place], [place] [phone] Deborah Bey MD [address] [place] [address] DX PA order Social History Tobacco Use Types Packs/Day Years [...] encounter Miscellaneous Notes * Telephone Encounter - Marito Preston - 09/29/2025 5:04 PM EST [place] [facility] , scheduled pt for MRI on 10/02 @ 10 am / fasting after 6am Pt has been notified. Marsha Requesting PA to have Location change to [facility] . * Telephone Encounter - Alireza Rosales - 09/29/2025 4:37 PM EST [facility] [place] to be update to MRI Abdomen MRCP WO Contrast . Please advise ! documented in this encounter Plan of Treatment Upcoming Encounters Date Type Department Care Team (Late st Contact Info) Description 10/05/2025 1:30 PM EST Office Visit [facility] [address] [place] [address] Li Herman, OD [address] [place], [place] [phone] 11/02/2025 1:00 PM EST Immunization [facility] [address] [place] [address] documented as of this encounter Goals Goal [...] Care Plan Weekly blood pressure task No [place], Marcia Weekly blood pressure task Care Plan Weekly blood pressure task No Nenana Marcia Patient has chronic kidney disease Care Plan Patient has chronic kidney disease No [place], Marcia Patient has chronic kidney disease Care Plan Patient has chronic kidney disease No [place], [place] Weekly blood pressure task Care Plan Weekly [...] documented as of this encounter Care Teams Map Maker Relationship Specialty Start Date End Date Deborah Bey MD [address] [place] [address] PCP - General Internal Medicine 03/09/25 documented as of this encounter
== END 2025-10-04 13:53 | disposition home or self-care (01) ==
LOC: HO.LAB 13:52
PROVIDERS: PCP Student in an Organized Health Care Education/Training Program; Visit Provider Nurse Practitioner Family
DX: Z12.11 Encounter for screening for malignant neoplasm of colon (principal); K21.9 Gastro-esophageal reflux disease without esophagitis; E55.9 Vitamin D deficiency, unspecified; Z01.84 Encounter for antibody response examination
CPT/HCPCS: 36415; 82306; 82607; 82746; 83690; 86364

== ENCOUNTER 2025-10-05 16:07 | Outpatient (REF) | payer MEDICAID, SELFPAY ==
--- OUTSIDE RECORDS SUMMARY | 2025-10-05 13:30 | XMS_ITS | Encounter Summary ---
Author Organization [employer] Address [address] [facility] 7t [place] [address] Care Team Providers Care Patient Care Secretary Name Role Phone Deborah Bey MD Primary Care Pro vider Encounter Details Date Type Department Care Team (Late st Contact Info) Description 10/05/2025 1:30 PM EST Office Visit [facility] [address] [place], [place] [phone] Li Herman, OD [address] [place], [place] [phone] Social History Tobacco Use Types Packs/Day Years [...] Care Team (Late st Contact Info) Description 11/02/2025 1:00 PM EST Immunization [facility] [address] [place] [phone] documented as of this encounter Goals Goal [...] chronic kidney disease No Yang, [place], [place] Weekly blood pressure task Care Plan Weekly blood pressure task No Li Herman OD Weekly blood pressure task Care Plan Weekly blood pressure task No Li Herman OD Patient has chronic kidney disease Care Plan Patient has chronic kidney disease No Li Herman OD Patient has chronic kidney disease Care Plan Patient has chronic kidney disease No Li Herman OD documented as of this encounter Visit Diagnoses [...] kidney disease 10/02/2025 Weekly blood pressure task 10/05/2025 Weekly blood pressure task 10/05/2025 Patient has chronic kidney disease 10/05/2025 Patient has chronic kidney disease 10/05/2025 Assessment Noted Time PHQ-9 Depression Total Score: 0 03/08/20 9:22 AM EDT documented as of this encounter Care Teams Patient Care Secretary Relationship Specialty Start Date End Date Deborah Bey MD [address] [place] [address] PCP - General Internal Medicine 03/09/25 documented as of this encounter
--- OUTSIDE RECORDS SUMMARY | 2025-10-05 23:16 | XMS_ITS | Encounter Summary ---
Author Organization [facility] Address [address] [place] [address] Care Team Providers Care Afloat Cryptologic Manager Name Role Phone CliffSteffanie Selma Primary Care Pro vider Encounter Details Date Type Department Care Team (Late st Contact Info) Description 02/24/[address] [facility] - Main Lab [address] [place] [address] Marito Morales MD [address] [place] [address], [phone] Essential (primary) hypertension Social History Tobacco [...] mmol/L LAB CHEMISTRY METHOD 02/27/2025 12:46 PM [facility] Potassium 4.8 3.5 - 5.5 mmol/L LAB CHEMISTRY METHOD 02/27/2025 12:46 PM [facility] Chloride 101 96 - 110 mmol/L LAB CHEMISTRY METHOD 02/27/2025 12:46 PM [facility] CO2 28 21 - 32 mmol/L LAB CHEMISTRY METHOD 02/27/2025 12:46 PM [facility] Anion Gap 7 3 - 11 LAB CHEMISTRY METHOD 02/27/2025 12:46 PM [facility] Glucose 90 70 - 100 mg/dL LAB CHEMISTRY METHOD 02/27/2025 12:46 PM [facility] BUN 24 5 - 25 mg/dL LAB CHEMISTRY METHOD 02/27/2025 12:46 PM [facility] Creatinine 1.08 0.70 - 1.30 mg/dL LAB CHEMISTRY METHOD 02/27/2025 12:46 PM [facility] eGFR 84 >=60 mL/min/1. 73m2 LAB CHEMISTRY METHOD 02/27/2025 12:46 PM [facility] Comment:Calculation based on the Chronic Kidney Disease Epidemiology Collaboration (CKD-EPI) equation refit without adjustment for race. BUN/Creatinine Ratio 22.2 LAB CHEMISTRY METHOD 02/27/2025 12:46 PM [facility] Calcium 9.4 8.5 - 10.5 mg/dL LAB CHEMISTRY METHOD 02/27/2025 12:46 PM [facility] Blood Venous blood specimen / Unknown Venipuncture / Unknown 02/27/2025 7:08 AM EDT 02/27/2025 11:18 AM EDT us Marito Morales MD LAB BLOOD ORDERABLES Final Resul t [facility] [address] [place] [address], * (ABNORMAL) Complete blood count (02/27/2025 7:08 AM EDT) [facility] WBC 7.4 4.8 - 10.8 K/mcL LAB HEMETOLOGY METHOD 02/27/2025 12:44 PM [facility] RBC 5.00 4.50 - 5.50 M/mcL LAB HEMETOLOGY METHOD 02/27[facility]25 [facility] Hemoglobin 13.1(L) 13.5 - 17.5 g/dL LAB HEMETOLOGY METHOD 02/27/2025 12:44 PM [facility] Hematocrit 40.4(L) 42.0 - 54.0 % LAB HEMETOLOGY METHOD 02/27/2025 12:44 PM [facility] MCV 81.6 79.0 - 98.0 FL LAB HEMETOLOGY METHOD 02/27/2025 12:44 PM [facility] MCH 26.5(L) 27.0 - 32.0 pcg LAB HEMETOLOGY METHOD 02/27/2025 12:44 PM [facility] MCHC 32.4 32.0 - 37.0 g/dL LAB HEMETOLOGY METHOD 02/27/2025 12:44 PM [facility] RDW 13.0 11.0 - 15.0 % LAB HEMETOLOGY METHOD 02/27/2025 12:44 PM [facility] Platelets 375 130 - 400 K/mcL LAB HEMETOLOGY METHOD 02/27/2025 12:44 PM [facility] MPV 9.9 7.0 - 11.0 FL LAB HEMETOLOGY METHOD 02/27/2025 12:44 [facility] NRBC 0.0 <1.0 % LAB HEMETOLOGY METHOD 02/27/2025 12:44 PM EDT [facility] NRBC Absolute 0.00 <0.10 K/mcL LAB HEMETOLOGY METHOD 02/27/2025 12:44 PM EDT [facility] Blood Venous blood specimen / Unknown Venipuncture / Unknown 02/27/2025 7:08 AM EDT 02/27/2025 11:18 AM EDT us Marito Morales MD LAB BLOOD ORDERABLES Final Resul t [facility] [address] [place] [address], documented in this encounter Visit Diagnoses Diagnosis Essential (primary) hypertension Unspecified essential hypertension documented in this encounter Care Teams Afloat Cryptologic Manager Relationship Specialty Start Date End Date Selma Hong DO PCP - General Internal Medicine 07/18/13 documented as of this encounter
--- OUTSIDE RECORDS SUMMARY | 2025-10-05 23:16 | XMS_ITS | Encounter Summary ---
Author Organization [employer] Address [address] [place] [address] [address] [place] [address] Care Team Providers Care Aircraft Accessories Mechanic Name Role Phone Deborah Bey MD Primary Care Pro vider Reason for Referral * Imaging (STAT) - Authorized Specialty Diagnoses / Procedures Referred By Contac t Referred To Contact Radiology Diagnoses Liver mass Procedures MR Abdomen w/ and w/o Contrast Deborah Bey MD [address] [place] [phone] Phone: tel: fax: [facility] Referral ID Status Reason Start Date Expiration Date V isits Requested Visits Authorized [id number] Authorized 10/03/2025 10/03/2026 1 1 Encounter Details Date Type Department Care Team (Late st Contact Info) Description 10/02/2025 Orders Only [facility] [address] [place] [phone] Deborah Bey MD [address] [place], [place] [phone] Liver mass (Primary Dx) Social History Tobacco [...] Info) Description 11/02/2025 1:00 PM EST Immunization [facility] [address] [place], [place] [phone] Scheduled Orders Name Type Priority Associated Diagnoses [...] Care Plan Weekly blood pressure task No [place], Marcia Weekly blood pressure task Care Plan Weekly blood pressure task No [place], Marcia Patient has chronic kidney disease Care Plan Patient has chronic kidney disease No [place], Marcia Patient has chronic kidney disease Care Plan Patient has chronic kidney disease No [place], Marcia Weekly blood pressure task Care Plan [...] Care Plan Weekly blood pressure task No Preston, Marito Patient has chronic kidney disease Care Plan Patient has chronic kidney disease No Preston, Marito Patient has chronic kidney disease Care Plan Patient has chronic kidney disease No Mohan Marito Weekly blood pressure task Care Plan Weekly [...] documented as of this encounter Care Teams Aircraft Accessories Mechanic Relationship Specialty Start Date End Date Deborah Bey MD [address] [place] [phone] PCP - General Internal Medicine 03/09/25 documented as of this encounter
--- OUTSIDE RECORDS SUMMARY | 2025-10-05 23:16 | XMS_ITS | Encounter Summary ---
Author Organization [employer] Address [address] [facility] 7 [place] [address] Care Team Providers Care Founder President And Ceo Name Role Phone Deborah Bey MD Primary Care Pro vider Reason for Visit * Reason Onset Date Comments MRI F/U [facility] 10/02/2025 Encounter Details Date Type Department Care Team (Late st Contact Info) Description 10/02/2025 Telephone [facility] [address] [place] [address] Deborah Bey MD [address] [place] [address] MRI F/U [facility] Social History Tobacco Use [...] call placed to the radiology department at [facility] to check on the status of the newly sent STAT imaging order for MRI MRCP W/O CONTRAST sent on 10/02/2025. Per [facility], based on the ptfindings of the US Abdomen Complete (scanned into pt chart under media on 09/28/2025) the pt needs to have an Abdominal MRI ordered with and without contrast based on radiologists recommendations. Will route to PCP for FYI to place new order. Per [facility] the pt is currently rescheduled to have thisdone on 10/09/2025. * Telephone Encounter - Sundar Yang [place] - 10/02/2025 4:17 PM EST T/C to [facility] [phone] spoke to Nedra to verify that pt kept MRI appointment. Pt did showfor MRI, Nedra stated report should be done by Thursday10/04/25. documented in this encounter Plan of Treatment Upcoming Encounters Date Type Department Care Team (Late st Contact Info) Description 11/02/2025 1:00 PM EST Immunization [facility] [address] [place] [address] documented as of this encounter Goals Goal [...] Care Plan Weekly blood pressure task No [place], Marcia Weekly blood pressure task Care Plan Weekly blood pressure task No [place], Marcia Patient has chronic kidney disease Care Plan Patient has chronic kidney disease No [place], Marcia Patient has chronic kidney disease Care Plan Patient has chronic kidney disease No [place], Marcia Weekly blood pressure task Care Plan [...] chronic kidney disease No Yang [place], [place] documented as of this encounter Visit [...] documented as of this encounter Care Teams Founder President And Ceo Relationship Specialty Start Date End Date Deborah Bey MD [address] [place] [phone] PCP - General Internal Medicine 03/09/25 documented as of this encounter
--- OUTSIDE RECORDS SUMMARY | 2025-10-05 23:16 | XMS_ITS | Encounter Summary ---
Author Organization [facility] Address [address] [place] [address] Care Team Providers Care Silo Tender Name Role Phone CliffSteffanie Selma Primary Care Pro vider Encounter Details Date Type Department Care Team (Late st Contact Info) Description 02/20/2025 Lab Requisition [facility] - Main Lab [address] [place] [address] Marito Morales MD [address] [place] [address], [phone] Essential (primary) hypertension Social History Tobacco [...] mmol/L LAB CHEMISTRY METHOD 02/20/2025 12:54 PM [facility] Potassium 4.9 3.5 - 5.5 mmol/L LAB CHEMISTRY METHOD 02/20/2025 12:54 PM [facility] Chloride 97 96 - 110 mmol/L LAB CHEMISTRY METHOD 02/20/2025 12:54 PM [facility] CO2 24 21 - 32 mmol/L LAB CHEMISTRY METHOD 02/20/2025 12:54 PM [facility] Anion Gap 9 3 - 11 LAB CHEMISTRY METHOD 02/20/2025 12:54 PM [facility] Glucose 111(H) 70 - 100 mg/dL LAB CHEMISTRY METHOD 02/20/2025 12:54 PM [facility] BUN 24 5 - 25 mg/dL LAB CHEMISTRY METHOD 02/20/2025 12:54 PM [facility] Creatinine 1.01 0.70 - 1.30 mg/dL LAB CHEMISTRY METHOD 02/20/2025 12:54 PM [facility] eGFR 91 >=60 mL/min/1. 73m2 LAB CHEMISTRY METHOD 02/20/2025 12:54 PM [facility] Comment:Calculation based on the Chronic Kidney Disease Epidemiology Collaboration (CKD-EPI) equation refit without adjustment for race. BUN/Creatinine Ratio 23.8 LAB CHEMISTRY METHOD 02/20/2025 12:54 PM [facility] Calcium 9.2 8.5 - 10.5 mg/dL LAB CHEMISTRY METHOD 02/20/2025 12:54 PM [facility] AST (SGOT) 32 10 - 42 unit/L LAB CHEMISTRY METHOD 02/20/2025 12:54 PM [facility] ALT (SGPT) 63(H) 10 - 60 unit/L LAB CHEMISTRY METHOD 02/20/2025 12:54 PM [facility] Alkaline Phosphatase 75 42 - 121 unit/L LAB CHEMISTRY METHOD 02/20/2025 12:54 PM T [facility] Total Protein 7.9 6.0 - 8.0 g/dL LAB CHEMISTRY METHOD 02/20/2025 12:54 PM [facility] Albumin 3.8 3.2 - 5.0 g/dL LAB CHEMISTRY METHOD 02/20/2025 12:54 PM [facility] Total Bilirubin 0.7 0.0 - 1.4 mg/dL LAB CHEMISTRY METHOD 02/20/2025 12:54 PM [facility] Blood Venous blood specimen / Unknown Venipuncture / Unknown 02/20/2025 6:39 AM EDT 02/20/2025 10:04 AM EDT us Marito Morales MD LAB BLOOD ORDERABLES Final Resul t [facility] [address] [place] [address], [place] [phone] * (ABNORMAL) Complete blood count (02/20/2025 6:39 AM EDT) WBC 10.9(H) 4.8 - 10.8 K/mcL LAB HEMETOLOGY METHOD 02/20/2025 11:02 AM [facility] RBC 5.50 4.50 - 5.50 M/mcL LAB HEMETOLOGY METHOD 02/20/2025 11:02 AM [facility] Hemoglobin 14.8 13.5 - 17.5 g/dL LAB HEMETOLOGY METHOD 02/20/2025 11:02 AM [facility] Hematocrit 45.9 42.0 - 54.0 % LAB HEMETOLOGY METHOD 02/20/2025 11:02 AM [facility] MCV 82.9 79.0 - 98.0 FL LAB HEMETOLOGY METHOD 02/20/2025 11:02 AM EDT [facility] MCH 26.7(L) 27.0 - 32.0 pcg LAB HEMETOLOGY METHOD 02/20/2025 11:02 AM EDT [facility] MCHC 32.2 32.0 - 37.0 g/dL LAB HEMETOLOGY METHOD 02/20/2025 11:02 AM EDT [facility] RDW 13.2 11.0 - 15.0 % LAB HEMETOLOGY METHOD 02/20/2025 11:02 AM EDT [facility] Platelets 443(H) 130 - 400 K/mcL LAB HEMETOLOGY METHOD 02/20/2025 11:02 AM EDT [facility] MPV 10.1 7.0 - 11.0 FL LAB HEMETOLOGY METHOD 02/20/2025 11:02 AM EDT [facility] NRBC 0.0 <1.0 % LAB HEMETOLOGY METHOD 02/20/2025 11:02 AM EDT [facility] NRBC Absolute 0.00 <0.10 K/mcL LAB HEMETOLOGY METHOD 02/20/2025 11:02 AM EDT [facility] Blood Venous blood specimen / Unknown Venipuncture / Unknown 02/20/2025 6:39 AM EDT 02/20/2025 10:04 AM EDT us Marito Morales MD LAB BLOOD ORDERABLES Final Resul t [facility] [address] [place] [address], documented in this encounter Visit Diagnoses Diagnosis Essential (primary) hypertension Unspecified essential hypertension documented in this encounter Care Teams Silo Tender Relationship Specialty Start Date End Date Selma Hong DO PCP - General Internal Medicine 07/18/13 documented as of this encounter
--- OUTSIDE RECORDS SUMMARY | 2025-10-05 23:16 | XMS_ITS | Clinical Summary ---
Author Organization [address] Address [address] [place] [phone] Phone Care Team Providers Care Transition Rn Name Role Phone Selma Hong DO Primary Care Pro vider Surgical History Surgery Date Site/Laterality Comments OTHER SURGICAL HISTORY PROCEDURE: ID ARTHRS WRST EXC&/RPR TRIANG FIBROCART&/JOINT; COMMENT: torn [...] LAB CHEMISTRY METHOD 02/27/2025 12:46 PM EDT [facility] Potassium 4.8 3.5 - 5.5 mmol/L LAB CHEMISTRY METHOD 02/27/2025 12:46 PM EDT [facility] Chloride 101 96 - 110 mmol/L LAB CHEMISTRY METHOD 02/27/2025 12:46 PM T [facility] CO2 28 21 - 32 mmol/L LAB CHEMISTRY METHOD 02/27/2025 12:46 PM EDT [facility] Anion Gap 7 3 - 11 LAB CHEMISTRY METHOD 02/27/2025 12:46 PM EDT [facility] Glucose 90 70 - 100 mg/dL LAB CHEMISTRY METHOD 02/27/2025 12:46 PM EDT [facility] BUN 24 5 - 25 mg/dL LAB CHEMISTRY METHOD 02/27/2025 12:46 PM T [facility] Creatinine 1.08 0.70 - 1.30 mg/dL LAB CHEMISTRY METHOD 02/27/2025 12:46 PM EDT [facility] eGFR 84 >=60 mL/min/1. 73m2 LAB CHEMISTRY METHOD 02/27/2025 12:46 PM T [facility] Comment:Calculation based on the Chronic Kidney Disease Epidemiology Collaboration (CKD-EPI) equation refit without adjustment for race. BUN/Creatinine Ratio 22.2 LAB CHEMISTRY METHOD 02/27/2025 12:46 PM EDT [facility] Calcium 9.4 8.5 - 10.5 mg/dL LAB CHEMISTRY METHOD 02/27/2025 12:46 PM [facility] Blood Venous blood specimen / Unknown Venipuncture / Unknown 02/27/2025 7:08 AM EDT 02/27/2025 11:18 AM EDT us Marito Morales MD LAB BLOOD ORDERABLES Final Resul t [facility] [address] [place] [address], from Last 3 Months or Most Recently Relevant to Health Maintenance Insurance [facility] [place] [phone] GENERIC GENERIC Care Teams Transition Rn Relationship Specialty Start Date End Date Selma Hong DO PCP - General Internal Medicine 07/18/13
--- OUTSIDE RECORDS SUMMARY | 2025-10-05 23:16 | XMS_ITS | Encounter Summary ---
Author Organization [employer] Address [address] [facility] 7t [place] [address] Care Team Providers Care Director Banking Name Role Phone Deborah Bey MD Primary Care Pro vider Encounter Details Date Type Department Care Team (Latest Contact Info) Description 09/25/2025 Results Follow-Up [facility]INE [address] [place], [place] [phone] Deborah Bey MD [address] [place] [address] Comprehensive Metabolic Panel, Hemoglobin A1c Social History [...] Info) Description 11/02/2025 1:00 PM EST Immunization [facility] [address] [place] [phone] documented as of this encounter Visit Diagnoses Not on filedocumented in this encounter Additional Health Concerns Assessment Noted Time PHQ-9 Depression Total Score: 0 03/08/20 9:22 AM EDT documented as of this encounter Care Teams Director Banking Relationship Specialty Start Date End Date Deborah Bey MD [address] [place] [address] PCP - General Internal Medicine 03/09/25 documented as of this encounter
--- OUTSIDE RECORDS SUMMARY | 2025-10-05 23:16 | XMS_ITS | Encounter Summary ---
Author Organization [employer] Address [address] [place] [address] 7[address] [place] [address] Care Team Providers Care Ceramic Tile Mechanic Name Role Phone Deborah Bey MD Primary Care Pro vider Reason for Referral * Imaging (STAT) - Canceled Specialty Diagnoses / Procedures Referred By Contafia t Referred To Contact Radiology Diagnoses Liver lesion Procedures MRI MRCP WO CONTRAST Deborah Bey MD [address] [place] [address] Phone: tel: fax: [facility] Referral ID Status Reason Start Date Expiration Date V isits Requested Visits Authorized [id number] Canceled 10/02/2025 10/02/2026 1 1 Encounter Details Date Type Department Care Team (Late st Contact Info) Description 10/02/[address] [facility] [address] [place] [phone] Deborah Bey MD [address] [place], [place] [phone] Liver lesion (Primary Dx) Social History Tobacco [...] Info) Description 11/02/2025 1:[address] [facility] [address] [place] [phone] Scheduled Orders Name Type Priority Associated Diagnoses [...] Care Plan Weekly blood pressure task No [place] Marcia Weekly blood pressure task Care Plan Weekly blood pressure task No [place], Marcia Patient has chronic kidney disease Care Plan Patient has chronic kidney disease No [place], Marcia Patient has chronic kidney disease Care Plan Patient has chronic kidney disease No [place], Marcia Weekly blood pressure task Care Plan [...] task Care Plan Weekly blood pressure task Sundar Kulkarni MA Weekly blood pressure task Care Plan Weekly blood pressure task Sundar Kulkarni MA Patient has chronic kidney disease Care Plan Patient has chronic kidney disease No Sundar Yang MA Patient has chronic kidney disease Care Plan Patient has chronic kidney disease Sundar Kulkarni MA documented as of this encounter Visit [...] documented as of this encounter Care Teams Ceramic Tile Mechanic Relationship Specialty Start Date End Date Deborah Bey MD [address] [place] [phone] PCP - General Internal Medicine 03/09/25 documented as of this encounter
--- OUTSIDE RECORDS SUMMARY | 2025-10-05 23:16 | XMS_ITS | Encounter Summary ---
Author Organization [employer] Address [address] [facility] 7 [place] [address] Care Team Providers Care Showcase Maker Name Role Phone Deborah Bey MD Primary Care Pro vider Reason for Visit * Reason Onset Date Comments imaging order needed 10/02/2025 Encounter Details Date Type Department Care Team (Late st Contact Info) Description 10/02/2025 Telephone [facility]INE [address] [place] [address] Deborah Bey MD [address] [place] [address] imaging order needed Social History Tobacco Use [...] EST Telephone call returned to Cheri at [facility]. They do not have the correct MRI order for the pt's MRI today. They need it to say: MRI of the abdomen with and without contrast. Follow up to ultrasound. Current diagnosis code correct. Patient will need to be rescheduled once order sent, [facility] will give the patient the phone number for Centralized Scheduled at [facility]. * Telephone Encounter - Marito Preston - 10/02/2025 10:33 AM EST Tc from Cheri with [facility] MRI Reporting receiving wrong MRI for pt . She Received MRI MRCP . Cheri is needing MRI of Abdomen With and without contrast. Pt is currently there in office and needs new order sent laina . Will only have 30 min before rescheduling Please fax to [phone] documented in this encounter Plan of Treatment Upcoming Encounters Date Type Department Care Team (Late st Contact Info) Description 11/02/2025 1:00 PM EST Immunization [facility] [address] [place] [address] documented as of this encounter Goals Goal [...] Care Plan Weekly blood pressure task No [place], Marcia Weekly blood pressure task Care Plan Weekly blood pressure task No [place], Marcia Patient has chronic kidney disease Care Plan Patient has chronic kidney disease No [place], Marcia Patient has chronic kidney disease Care Plan Patient has chronic kidney disease No [place], Marcia Weekly blood pressure task Care Plan [...] Care Plan Patient has chronic kidney disease Marito Mendes Weekly blood pressure task Care Plan Weekly [...] documented as of this encounter Care Teams Showcase Maker Relationship Specialty Start Date End Date Deborah Bey MD [address] [place] [phone] PCP - General Internal Medicine 03/09/25 documented as of this encounter
--- OUTSIDE RECORDS SUMMARY | 2025-10-05 23:16 | XMS_ITS | Encounter Summary ---
Author Organization [employer] Address [address] [facility] 7t [place] [address] Care Team Providers Care Author Agent Name Role Phone Deborah Bey MD Primary [...] Info) Description 11/02/2025 1:00 PM EST Immunization [facility] MEDICINE [address] [place] [phone] documented as of this encounter Goals Goal [...] Care Plan Weekly blood pressure task No Alireza Rosales Weekly blood pressure task Care Plan Weekly blood pressure task No NicolasartAlireza hamilton Patient has chronic kidney disease Care Plan Patient has chronic kidney disease No Vahayleertalfonso Providencia Patient has chronic kidney disease Care Plan Patient has chronic kidney disease No Shanon Rosalesia Weekly blood pressure task Care Plan Weekly [...] Plan Patient has chronic kidney disease No Beni Prestonua Weekly blood pressure task Care Plan Weekly [...] Care Plan Weekly blood pressure task No YangSundar ann MA Patient has chronic kidney disease Care Plan Patient has chronic kidney disease No Sundar Yang MA Patient has chronic kidney disease Care Plan Patient has chronic kidney disease No Sundar Yang MA documented as of this encounter Procedures Procedure Name Priority Date/Time Associated Diagnosis Comments VITAMIN B12/FOLATE, SERUM PANEL Routine 10/04/2025 3:05 PM EST TISSUE TRANSGLUTAMINASE AB, IGA Routine 10/04/2025 3:05 PM EST LIPASE Routine 10/04/2025 3:05 PM EST documented in this encounter Results * Tissue Transglutaminase Antibody, IgA (10/04/2025 3:05 PM EST) Pathologist [facility] Transglutaminase IgA <1.0 U/mL [facility] Comment:Value Interpretation ----- <15.0 Antibody not detected> or = 15.0 Antibody detectedTHIS TEST WAS PERFORMED AT:[facility] [place] [phone] MAYEN MD 10/04/2025 3:05 PM EST 10/04/2025 3:05 PM EST Generic External Data Provider LAB BLOOD ORDERAB LES Final Result Performing Organization Address [facility] Co de Phone Number [facility] [address] [place] [phone] * Vitamin B12 (Cobalamin) and Folate Panel, Serum (10/04/2025 3:05 PM EST) Pathologist [facility] Vitamin B12 559 200 - 900 pg/mL [facility] Comment:NORMAL 200-900 PG/M L INDETERMINATE 160-199 PG/ML DEFICIENT < 160 PG/ML Folate 6.3 > or = 4.0 ng/mL [facility] Comment:Reference Values:> o r = 4.0 ng/mL< 4.0 ng/mL suggests folate deficiency Methotrexate, aminopterin and folinic acid(leucovorin) are chemotherapeutic agents whose molecularstructures are similar to folate; therefore, the Architectfolate assay cannot be used for patients using these drugs. 10/04/2025 3:0 5 PM EST 10/04/2025 3:05 PM EST Generic External Data Provider LAB BLOOD ORDERAB LES Final Result Performing Organization Address [facility] de Phone Number [facility] [address] [place] [phone] * Lipase (10/04/2025 3:05 PM EST) Pathologist [facility] Lipase 30 8 - 78 U/L [facility] 10/04/2025 3:05 PM EST 10/04/2025 3:05 PM EST us Generic External Data Provider LAB BLOOD ORDERAB LES Final Result Performing Organization Address City/State/[facility] Co de Phone Number [facility] [address] [place] [phone] [phone] documented in this encounter Visit Diagnoses [...] documented as of this encounter Care Teams Author Agent Relationship Specialty Start Date End Date Deborah Bey MD [address] [place] [address] PCP - General Internal Medicine 03/09/25 documented as of this encounter
--- OUTSIDE RECORDS SUMMARY | 2025-10-05 23:16 | XMS_ITS | Encounter Summary ---
Author Organization [employer] Address [address] [facility] 7t [place] [address] Care Team Providers Care Color Adviser Name Role Phone Deborah Bey MD Primary Care Pro vider Encounter Details Date Type Department Care Team (Latest Contact Info) Description 10/05/2025 Travel Social History Tobacco Use Types Packs/Day Years [...] Info) Description 11/02/2025 1:00 PM EST Immunization [facility] [address] [place] [address] documented as of this encounter Goals Goal [...] Care Plan Weekly blood pressure task No [place]Marcia maddox Patient has chronic kidney disease Care Plan Patient has chronic kidney disease No Sri Marcia Patient has chronic kidney disease Care Plan Patient has chronic kidney disease No [place], Marcia Weekly blood pressure task Care Plan Weekly blood pressure task No Vazquezortalfonso Providencia Weekly blood pressure task Care Plan Weekly blood pressure task No Vazquezortiz, Providencia Patient has chronic kidney disease Care Plan Patient has chronic kidney disease No Vazquezortiz Providencia Patient has chronic kidney disease Care Plan Patient has chronic kidney disease No Alireza Rosales Weekly blood pressure task [...] Weekly blood pressure task No YangIsabellauyomy MA Weekly blood pressure task Care Plan Weekly blood pressure task No Yang Louyomy, MA Patient has chronic kidney disease Care Plan Patient has chronic kidney disease No YangIsabellauyomy, MA Patient has chronic kidney disease Care Plan Patient has chronic kidney disease No YangRonaldo annomy MA Weekly blood pressure task Care Plan [...] documented as of this encounter Care Teams Color Adviser Relationship Specialty Start Date End Date Deborah Bey MD [address] [place] [phone] PCP - General Internal Medicine 03/09/25 documented as of this encounter
--- OUTSIDE RECORDS SUMMARY | 2025-10-05 23:16 | XMS_ITS | Encounter Summary ---
Author Organization [facility] Address [address] [place] [address] Care Team Providers Care Malt Liquors Sales Representative Name Role Phone Selma Hong DO Primary Care Pro vider Encounter Details Date Type Department Care Team (Late st Contact Info) Description 03/04/[address] [facility] - Main Lab [address] [facility] [place] [address] Marito Morales MD [address] [place] [address], [phone] Essential (primary) hypertension Social History Tobacco Use [...] hypertension documented in this encounter Care Teams Malt Liquors Sales Representative Relationship Specialty Start Date End Date Selma Hong DO PCP - General Internal Medicine 07/18/13 documented as of this encounter
--- OUTSIDE RECORDS SUMMARY | 2025-10-05 23:16 | XMS_ITS | Encounter Summary ---
Author Organization [employer] Address [address] [facility] [address] 7t [place] [address] Care Team Providers Care Button Decorating Machine Operator Name Role Phone Deborah Bey MD Primary Care Pro vider Reason for Visit * Reason Comments Med Refill Encounter Details Date Type Department Care Team (Late st Contact Info) Description 07/20/2025 Refill [facility] [address] [place] [address] Farida Saavedra MD [address] [place] [address] Social History Tobacco Use Types Packs/Day Years [...] Info) Description 11/02/2025 1:00 PM EST Immunization [facility]IC[facility] [address] [place] [address] documented as of this encounter Visit Diagnoses Not on filedocumented in this encounter Additional Health Concerns Assessment Noted Time PHQ-9 Depression Total Score: 0 03/08/20 9:22 AM EDT documented as of this encounter Care Teams Button Decorating Machine Operator Relationship Specialty Start Date End Date Deborah Bey MD [address] [place] [phone] PCP - General Internal Medicine 03/09/25 documented as of this encounter
--- OUTSIDE RECORDS SUMMARY | 2025-10-05 23:16 | XMS_ITS | Encounter Summary ---
Author Organization [employer] Address [address] [facility] 7 [place] [address] Care Team Providers Care Emergency Technician Name Role Phone Deborah Bey MD Primary Care Pro vider Reason for Visit * Reason Onset Date Comments Prior Auth Prescription 09/28/2025 Encounter Details Date Type Department Care Team (Late st Contact Info) Description 09/28/2025 Telephone [facility] [address] [place] [address] Deborah Bey MD [address] [place] [address] Prior Auth Prescription Social History Tobacco Use [...] Info) Description 11/02/2025 1:00 PM EST Immunization [facility] [address] [place] [address] documented as of this encounter Goals Goal Patient Goal Type Associated Problems Recent Progress Patient-Stated? Author Help patients manage their type 2 diabetes Care Plan Help patients manage their type 2 diabetes Deborah Peralta MD Weekly blood pressure task Care Plan Weekly blood pressure task No Deborah Bey MD Help patients manage their type 2 diabetes Care Plan Help patients manage their type 2 diabetes Deborah Peralta MD Patient has chronic kidney disease Care [...] documented as of this encounter Care Teams Emergency Technician Relationship Specialty Start Date End Date Deborah Bey MD [address] [place] [phone] PCP - General Internal Medicine 03/09/25 documented as of this encounter
--- OUTSIDE RECORDS SUMMARY | 2025-10-05 23:16 | XMS_ITS | Encounter Summary ---
Author Organization [employer] Address [address] [facility] 7 [place] [address] Care Team Providers Care Quality Improvement Coordinator (Rn) Name Role Phone Deborah Bey MD Primary Care Pro vider Reason for Visit * Reason Onset Date Comments Med Refill 03/16/2025 Encounter Details Date Type Department Care Team (Late st Contact Info) Description 03/16/2025 Telephone [facility] [address] [place] [address] Deborah Bey MD [address] [place] [address] Med Refill Social History Tobacco Use Types [...] Info) Description 11/02/2025 1:00 PM EST Immunization [facility] [address] [place] [phone] documented as of this encounter Visit Diagnoses Not on filedocumented in this encounter Additional Health Concerns Assessment Noted Time PHQ-9 Depression Total Score: 0 03/08/20 9:22 AM EDT documented as of this encounter Care Teams Quality Improvement Coordinator (Rn) Relationship Specialty Start Date End Date Deborah Bey MD [address] [place] [phone] PCP - General Internal Medicine 03/09/25 documented as of this encounter
--- OUTSIDE RECORDS SUMMARY | 2025-10-05 23:16 | XMS_ITS | Encounter Summary ---
Author Organization [employer] Address [address] [facility] 7t [place] [address] Care Team Providers Care Piano Teacher Name Role Phone Deborah Bey MD Primary Care Pro vider Reason for Visit * Reason Onset Date Comments new pt 02/27/2025 Encounter Details Date Type Department Care Team (Late st Contact Info) Description 02/27/2025 Telephone [facility] MEDICINE [address] [place], [place] [phone] Sherif Allen MD [address] [place], [place] [phone] new pt Social History Tobacco Use Types [...] fractured coccyx Medical Concern: Insurance name : [facility] Location : Any location Demographic information updated Tc from daughter requesting soonest availability in order for pt to get discharged from [facility] appointment documented in this encounter Plan of Treatment Upcoming Encounters Date Type Department Care Team (Late st Contact Info) Description 11/02/2025 1:00 PM EST Immunization [facility] MEDICINE [address] [place] [phone] documented as of this encounter Visit Diagnoses Not on filedocumented in this encounter Care Teams Piano Teacher Relationship Specialty Start Date End Date Deborah Bey MD [address] [place] [address] PCP - General Internal Medicine 03/09/25 documented as of this encounter
--- OUTSIDE RECORDS SUMMARY | 2025-10-05 23:16 | XMS_ITS | Clinical Summary ---
Author Organization [employer] Address [address] [facility] 7t [place] [address] Care Team Providers Care Battery Container Inspector Name Role Phone Deborah Bey MD Primary [...] Encounters Date Type Department Care Team Description 10/05/2025 1:30 PM EST Office Visit [facility] OPTOMETRY [address] [place], [place] [phone] Li Herman OD 10/05/2025 Travel 10/04/2025 Orders Only GENERIC EXTERNAL DATA DEPARTMENT Provider, Generic External Data 10/02/2025 Telephone [facility] PEDIATRICS [address] [place] [address] Deborah Bey MD MRI F/U Santamaria 10/02/2025 Orders Only [facility] MEDICINE [address] [place] [address] Deborah Bey MD Liver mass (Primary Dx) 10/02/2025 Telephone [facility] MEDICINE [address] [place] [phone] Deborah Bey MD imaging order needed 10/02/2025 Orders Only [facility] MEDICINE [address] [place] [address] Deborah Bey MD Liver lesion (Primary Dx) 09/29/2025 Telephone [facility] [address] [place] [address] Deborah Bey MD DX PA order 09/28/2025 10:15 AM EST Office Visit [facility] MEDICINE [address] [place] [phone] Deborah Bey MD Type 2 diabetes mellitus without complication, without long-term current use of insulin (HCC) (Primary Dx); Morbid obesity (CMS/HCC) (HCC); Encounter for immunization; Liver mass; Primary hypertension; Liver lesion; Transaminitis; Health care maintenance; Closed stable burst fracture of second lumbar vertebra with routine healing; Dry cough 09/28/2025 Telephone [facility] MEDICINE [address] [place] [phone] Deborah Bey MD Prior Auth Prescription 09/28/2025 Travel 09/27/2025 Population Health Risk Score [facility] () [address] [address] Provider, Population Health Generic 09/27/2025 Telephone [facility] MEDICINE [address] [place] [phone] Deborah Bey MD chart prep 09/25/2025 Results Follow-Up [facility] MEDICINE [address] [place] [phone] Deborah Bey MD Comprehensive Metabolic Panel, Hemoglobin A1c 09/19/2025 Patient Outreach [facility] MEDICINE [address] [place] [phone] Deborah Bey MD Pre-visit Planning (SDOH screening was completed on 03/01/2025) 07/20/2025 Refill [facility] WALK-IN CENTER [address] [place] [phone] Farida Saavedra MD 07/07/2025 Telephone [facility] MEDICINE [address] [place] [phone] Deborah Bey MD dec recall from Last [...] Info) Description 11/02/2025 1:00 PM EST Immunization [facility] MEDICINE [address] [place] [phone] Health Maintenance Due Date Last Done Comments CT Colonography 1975 Colonoscopy 1975 Colorectal Cancer Screening 1975 FIT DNA/Cologuard 1975 FIT 1975 FOBT 1975 Sigmoidoscopy 1975 Diabetes: Foot Exam 1985 Family Planning (PISQ) 1990 Hepatitis [...] Screening 03/08/2026 03/08/2025 Depression Screening 03/08/2026 03/08/2025, 05/14/20 25 Disability Screening 03/08/2026 03/08/2025 Diabetes: Hemoglobin A1C 03/26/2026 09/25/2025, 07/0 06/2025 Diabetes: Urine Protein Screening 05/03/2026 05/03/2025 Lipid Panel 05/03/2026 05/03/2025, 09/21/2020 Tobacco Screening 10/05/2026 10/05/2025 Eye Exam 10/05/2027 10/05/2025, 09/25, 10/05/2025, Additional history exists DTaP/Tdap/Td Vaccines (2 - Td or Tdap) 03/08/2035 03/08/2025 HIV Screening Completed 05/03/2025, 09/21/2020 Hepatitis C Screening Completed 05/03/2025 COVID-19 Vaccine Completed 09/28/2025, , 02/09/2021 Influenza Vaccine Completed 09/28/2025, , 07/20/2013 HIB Vaccines Aged Out No longer [...] Care Plan Weekly blood pressure task No [place], Marcia Weekly blood pressure task Care Plan Weekly blood pressure task No [place], Marcia Patient has chronic kidney disease Care [...] Care Plan Weekly blood pressure task No [place], [place] Weekly blood pressure task Care Plan Weekly blood pressure task No Yang [place], [place] Patient has chronic kidney disease Care Plan Patient has chronic kidney disease No Yang [place], [place] Patient has chronic kidney disease Care Plan Patient has chronic kidney disease No Yang [place], [place] Weekly blood pressure task Care Plan Weekly blood pressure task No Li Herman OD Weekly blood pressure task Care Plan Weekly blood pressure task No Li Herman OD Patient has chronic kidney disease Care Plan Patient has chronic kidney disease No Hanh eHrmanslick ISAAC Patient has chronic kidney disease Care Plan Patient has chronic kidney disease No Li Herman, ISAAC Procedures Procedure Name Priority Date/Time Associated Diagnosis Comments TISSUE TRANSGLUTAMINASE AB, IGA Routine 10/04/2025 3:05 PM EST VITAMIN B12/FOLATE, SERUM PANEL Routine 10/04/2025 3:05 [...] Vitamin B12 559 200 - 900 pg/mL [facility] Comment:NORMAL 200-900 PG/ML INDETERMINATE 160-199 PG/ML DEFICIENT < 160 PG/ML Folate 6.3 > or = 4.0 ng/mL [facility] Comment:Reference Values:> o r = 4.0 ng/mL< 4.0 ng/mL suggests folate deficiency Methotrexate, aminopterin and folinic acid(leucovorin) are chemotherapeutic agents whose molecularstructures are similar to folate; therefore, the Architectfolate assay cannot be used for patients using these drugs. 10/04/2025 3:05 PM EST 10/04/2025 3:05 PM EST us Generic External Data Provider LAB BLOOD ORDERAB LES Final Result Performing Organization Address [facility] de Phone Number [facility] [address] [place] [phone] * Tissue Transglutaminase Antibody, IgA (10/04/2025 3:05 PM EST) Transglutaminase IgA <1.0 U/mL [facility] Comment:Value Interpretation ----- <15.0 Antibody not detected> or = 15.0 Antibody detectedTHIS TEST WAS PERFORMED AT:[facility] [address] [id number] MAYEN MD 10/04/2025 3:05 PM EST 10/04/2025 3:05 PM EST Generic External Data Provider LAB BLOOD ORDERAB LES Final Result Performing Organization Address [facility] Co de Phone Number [facility] [address] [place] [phone] * Lipase (10/04/2025 3:05 PM EST) Lipase 30 8 - 78 U/L [facility] 10/04/2025 3:05 PM EST 10/04/2025 3:05 PM EST us Generic External Data Provider LAB BLOOD ORDERAB LES Final Result Performing Organization Address [facility]/ZIP Co de Phone Number [facility] [address] [place] [address] [phone] * (ABNORMAL) Hemoglobin A1c (09/25/2025 9:44 AM EST) Hemoglobin A1c 6.6(H) <6.0 % [facility] Comment:Hemoglobin A1C Refer ence Range Adults: 4.8 - 6.0 % Non diabetic: < 6.0 % Goal: < 7.0 %Additional Action Suggested: > 8.0 %Note: Hemoglobin A1c results are invalid for patients with abnormal amounts of HbF. Blood transfusions may impact the HbA1c concentration in the patient sample. Estimated Average Glucose 143 mg/dL [facility] Comment:eAG = Estimated ave rage glucose which is %A1C expressed asaverage glucose, using the formula of the F3C-ThiumdzIwafhzd Glucose study (ADAG), Diabetes Care, Vol.31,#8,May. 2007 Blood Venous blood specimen / Unknown 09/25/2025 9:44 AM EST 09/25/2025 11:05 AM EST us Deborah Conley MD LAB BLOOD ORDERAB LES Final Result Performing Organization Address [facility] Co de Phone Number [facility] [address] [place] [phone] * (ABNORMAL) Comprehensive Metabolic Panel (09/25/2025 9:44 AM EST) Sodium 137 135 - 145 mmol/L [facility] Potassium 4.3 3.3 - 5.1 mmol/L [facility] Chloride 107 96 - 108 mmol/L [facility] Carbon Dioxide 24 22 - 29 mmol/L [facility] Anion Gap 10(L) 12 - 20 [facility] Urea Nitrogen (BUN) 20(H) 9 - 16 mg/dL [facility] Creatinine, Serum 1.13 0.5 - 1.4 mg/dL [facility] Estimated Glomerular Filt Rate >60 [facility] Comment:Chronic Kidney Disea se: Estimated GFR < 60 mL/min/1.03k4Askgwa Kidney Disease: Estimated GFR < 15 mL/min/1.73m2 Glucose 148(H) 60 - 115 mg/dL [facility] Calcium 9.2 8.4 - 10.2 mg/dL [facility] Bilirubin, Total 0.4 0.0 - 1.0 mg/dL [facility] Aspartate Amino Transferase 41(H) 5 - 37 U/L [facility] Alanine Aminotransferase 78(H) 0 - 40 U/L [facility] Total Protein 7.9 6.5 - 8.0 g/dL [facility] Albumin Level 4.4 3.5 - 5.0 g/dL [facility] Alkaline Phosphatase 68 39 - 117 U/L [facility] Blood Venous blood specimen / Unknown 09/25/2025 9:44 AM EST 09/25/2025 11:37 AM EST us Deborah Conley MD LAB BLOOD ORDERAB LES Final Result [facility] [address] [place] [phone] [phone] * Referral to Sleep Medicine (07/31/2025) us Deborah Conley MD OUTPATIENT REFERR AL ORDERABLES Final Result * Albumin, Random Urine W/Creatinine (05/03/2025 8:07 AM EDT) Creatinine, Urine 220.59 mg/dL [facility] Microalbumin Urine 36.0 mg/L [facility] Microalbum Creatinine Ratio Ur 16.3 <30 ug/mg cr [facility] Comment:Albumin/Creatinine R atio Reference Ranges: Normal: < 30 ug/mg creatinine Microalbuminuria: 30 - 300 ug/mg creatinineClinical Albuminuria: > 300 ug/mg creatinine Urine (Urine, Random) 05/03/2025 8:07 AM EDT 05/03/2025 12:45 PM EDT us Deborah Conley MD LAB URINE ORDERAB LES Final Result Performing Organization Address City/[facility]/ZIP Co de Phone Number [facility] [address] [place] [phone] [phone] * (ABNORMAL) Lipid Panel, Standard (05/03/2025 8:07 AM EDT) Triglycerides 87 <150 mg/dL [facility] Comment:Desirable Triglyceri de: less than 150 mg/dLBorderline High Triglyceride 150-199 mg/dLHigh Triglyceride: 200-499 mg/dLVery High Triglyceride: greater than or equal to 5OO mg/dL Cholesterol 179 <200 mg/dL [facility] Comment:Desirable Cholestero l: less than 200 mg/dLBorderline High Cholesterol: 200-239 mg/dLHigh Cholesterol: greater than 239 mg/dL LDL Cholesterol Calculated 106(H) <100 mg/dL [facility] Comment:Desirable LDL: less than 100 mg/dLNear Optimal/Above Optimal LDL: 110- 129 mg/dLBorderline High LDL: 130-159 mg/dLHigh LDL: 160-189 mg/dLVery High LDL: greater than or equal to 190 mg/dL HDL Cholesterol 56 >40 mg/dL [facility] Comment:Desirable HDL: grea ter than 40 mg/dL Note: This HDL assay may give artificially low results in patients with liver disease. Blood Venous blood specimen / Unknown 05/03/2025 8:07 AM EDT 05/03/2025 11:53 AM EDT us Deborah Conley MD LAB BLOOD ORDERAB LES Final Result Performing Organization Address City/[facility]/ZIP Co de Phone Number [facility] [address] [place] [address] [phone] * Hepatitis C Antibody with Reflex to HCV, RNA, Quantitative, Real-Time PCR (05/03/2025 8:02 AM EDT) Hepatitis C Antibody Nonreactive Nonreactive [facility] Comment:Antibodies to HCV no t detected; does not exclude early acuteHCV infection. Blood Venous blood specimen / Unknown 05/03/2025 8:02 AM EDT 05/03/2025 11:53 AM EDT us Deborah Conley MD LAB BLOOD ORDERAB LES Final Result Performing Organization Address [facility]/ZIP Co de Phone Number [facility] [address] [place] [phone] * HIV-1/2 Antigen and Antibodies, Fourth Generation, with Reflexes (05/03/2025 8:02 AM EDT) [facility] HIV AB/AG Nonreactive Nonreactive [facility] Comment:HIV-1 p24 Ag and/or HIV-1/HIV-2 Ab not detected.A test result that is nonreactive does not exclude thepossibility of exposure to or infection with HIV-1 and/orHIV-2. Nonreactive results in this assay for individualswith prior exposure to HIV-1 and/or HIV-2 may be due toantigen and antibody levels that are below the limit ofdetection of this assay.The [employer] HIV Ag/Ab Combo assay result andsupplemental assay results should be interpreted inconjunction with the patient's clinical presentation,history and other laboratory results. If the results areinconsistent with clinical evidence, additional testing issuggested to confirm the result. Blood Venous blood specimen / Unknown 05/03/2025 8:02 AM EDT 05/03/2025 11:53 AM EDT us Deborah Conley MD LAB BLOOD ORDERAB LES Final Result Performing Organization Address City/[facility]/ZIP Co de Phone Number [facility] [address] [place] [phone] from Last 3 Months or Most [...] 10/05/2025 Patient has chronic kidney disease 10/05/2025 Insurance [facility] C3 Care Teams Battery Container Inspector Relationship Specialty Start Date End Date Deborah Bey MD [address] [place] [phone] PCP - General Internal Medicine 03/09/25
--- OUTSIDE RECORDS SUMMARY | 2025-10-05 23:16 | XMS_ITS | Encounter Summary ---
Author Organization Address [address] [place] [address] Care Team Providers Care Police [employer] Program Coordinator Name Role Phone Selma Hong DO Primary Care Pro vider Encounter Details Date Type Department Care Team (Late st Contact Info) Description 03/04/2025 Lab Requisition [facility] - Main Lab [address] [facility] [place] [address] Marito Morales MD [address] [place] [address], [phone] Essential (primary) hypertension Social History Tobacco Use [...] hypertension documented in this encounter Care Teams [employer] Program Coordinator Relationship Specialty Start Date End Date Selma Hong DO PCP - General Internal Medicine 07/18/13 documented as of this encounter
== END 2025-10-05 16:08 ==
LOC: HO.LNP 16:07
PROVIDERS: Visit Provider Nurse Practitioner Family
DX: K21.9 Gastro-esophageal reflux disease without esophagitis (principal)
CPT/HCPCS: 83013